=== PATIENT | male | born 1965 | race Caucasian/White ===

== ENCOUNTER 2021-08-09 15:50 | Emergency (ER) | payer BC, SELFPAY ==
[2021-08-09 16:02] VITALS: BP 131/90; PULSE 96; RESP 16; TEMP 36.3; O2SAT 97
--- NOTE | 2021-08-09 16:10 | ED.SKABFB ---
HPI - Skin/Abscess/Foreign Bdy General Chief complaint: Skin/Abscess/Foreign Body Stated complaint: tick bites Time Seen by Provider: 08/09/21 16:10 Source: patient Mode of arrival: ambulatory Limitations: no limitations History of Present Illness HPI narrative: 55 yo M presents with c/o multiple tick bites. Went down to property in [place] and had to do yard work. Was in tall grasses. States some ticks he removed right away and one on back of leg was on him for more than 48 hours. Removed approx. 3 days ago. Now has significant itching and redness. Denies fever/chills, fatigue. Was concerned he may need antibiotic. Ambulatory with steady gait. All systems reviewed and negative except as noted above. Related Data Home Medications Medication Instructions Recorded Confirmed atorvastatin 40 mg tablet 400 mg PO DAILY 08/09/21 08/09/21 paroxetine HCl 20 mg tablet 20 mg PO DAILY 08/09/21 08/09/21 ropinirole 1 mg tablet 1 mg PO DIRECTED 08/09/21 08/09/21 Allergies Allergy/AdvReac Type Severity Reaction Status Date / Time No Known Allergies Allergy Verified 08/09/21 16:09 Review of Systems Review of Systems: CONSTITUTIONAL: Denies fever, chills, or sweats. EYES: Denies visual changes, redness, or discharge. ENT: Denies rhinorrhea, congestion, sore throat, or otalgia. CARDIOVASCULAR: Denies chest pain, palpitations, or edema. RESPIRATORY: Denies cough or dyspnea. GASTROINTESTINAL: Denies abdominal pain, nausea, vomiting, or diarrhea. GENITOURINARY: Denies dysuria or hematuria. SKIN: Denies rash or itching. Tick bite to posterior left leg, 3 tick bites to left groin area. MUSCULOSKELETAL: Denies back pain, joint pain, or myalgia. NEUROLOGIC: Denies headache, numbness, or weakness. PSYCHIATRIC: Denies anxiety or depression. All other systems reviewed are negative, except as documented in HPI. PMFSH Comments At time of signature, agree with nursing past medical, surgical, social and family history. There is no relevant family history pertinent to the presenting complaint. Exam Narrative: GENERAL: This is a well-nourished, well-developed patient, in no apparent distress. HEAD: normocephalic, atraumatic. EYES: PERRL. Sclera clear/white. Vision is grossly intact. EARS: External ears normal NOSE: External nose normal NECK: Neck supple, non-tender without lymphadenopathy, masses or thyromegaly. CARDIOVASCULAR: Regular rate and rhythm without murmurs, gallops, or rubs. RESPIRATORY: Clear to auscultation. Breath sounds equal bilaterally. No wheezes, rales, or rhonchi. SKIN: warm, Dry, intact with no rash, good texture and turgor. 3 erythematous flat lesions to left groin. No concern for infection. Scabbed erythematous lesion to posterior left knee with surrounding erythema, warmth, tenderness. NEURO: awake, alert, and oriented to person, place and time. There were no obvious focal neurologic abnormalities. EXTREMITIES: Normal range of motion to all extremities. Course Course Level of Care: Express Care Visit Vital Signs Vital signs: Vital Signs Temperature 36.3 C L 08/09/21 16:02 Pulse Rate 96 08/09/21 16:02 Respiratory Rate 16 08/09/21 16:02 Blood Pressure 131/90 08/09/21 16:02 Pulse Oximetry 97 08/09/21 16:02 Oxygen Delivery Room Air 08/09/21 16:02 Temperature 36.3 C L 08/09/21 16:02 Pulse Rate 96 08/09/21 16:02 Respiratory Rate 16 08/09/21 16:02 Blood Pressure 131/90 08/09/21 16:02 Pulse Oximetry 97 08/09/21 16:02 Oxygen Delivery Room Air 08/09/21 16:02 Reviewed MDM - Skin/Abscess/Foreign Bdy MDM Narrative Medical decision making narrative: Will prescribe doxycycline for cellulitis to left posterior leg, doxycycline also as preventative for Lyme disease due to multiple tick bites. Patient is aware of diagnosis, understands and agrees to treatment plan. Anticipatory guidance given. Patient agrees to follow-up as directed and is aware of reasons to seek care at the
== END 2021-08-09 16:30 | disposition home or self-care (01) ==
PROVIDERS: Emergency Provider Nurse Practitioner Family
DX: S80.862A Insect bite (nonvenomous), left lower leg, initial encounter (principal); S30.861A Insect bite (nonvenomous) of abdominal wall, initial encounter; W57.XXXA Bitten or stung by nonvenomous insect and other nonvenomous arthropods, initial encounter; L03.116 Cellulitis of left lower limb; E78.00 Pure hypercholesterolemia, unspecified; G25.81 Restless legs syndrome
CPT/HCPCS: 99213; G0463

== ENCOUNTER 2024-02-19 20:34 | Emergency (ER) | payer BC, SELFPAY ==
--- NOTE | ~2024-02-19 | CT_ITS ---
EXAMINATION: CTA chest PE protocol DATE: 02/20/2024 01:17 INDICATION: Chest pain. Elevated d-dimer. TECHNIQUE: Computed tomography (CT) pulmonary angiogram of the chest was performed with 100 mL Omnipa que-350 intravenous contrast. Additional 3D reconstructions utilizing coronal maximum intensity proje ction (MIP) were performed. Automated exposure control and iterative reconstruction technique were em ployed. The dose-length product was 591.30 mGy-cm. COMPARISON: None FINDINGS: No pulmonary embolism. Mild biapical pleural-parenchymal scarring. Mild dependent atelectasis in bila teral lower lobes. No pneumonia, pulmonary edema, pleural effusion or pneumothorax. Heart size is nor mal. No pericardial or pleural effusion. Thoracic aorta is normal in caliber with no dissection. Para pelvic cysts at the upper pole the left kidney. 1.7 cm low-attenuation right adrenal adenoma. Mild th oracic spondylosis. IMPRESSION: 1. Mild dependent atelectasis in bilateral lower lobes. No pulmonary embolism or other acute cardiopu lmonary disease. Reviewed, dictated and finalized at location A. TENANCE REPAIRMAN IMPRESSION: 1. Mild dependent atelectasis in bilateral lower lobes. No pulmonary embolism o r other acute cardiopulmonary disease.
--- NOTE | ~2024-02-19 | XR_ITS ---
EXAMINATION: XR chest 2V DATE: 02/19/2024 20:55 INDICATION: Chest pain. TECHNIQUE: Frontal and lateral views of the chest were obtained. COMPARISON: None. FINDINGS: There is mild scarring at the lung apices. No pleural effusion or pneumothorax. The heart s ize is normal. IMPRESSION: 1. Mild scarring at the lung apices. Reviewed, dictated and finalized at location A. ODY OFFICER
--- NOTE | 2024-02-19 20:36 | ECG_ITS ---
Test Date: 2024-02-19 20:40:16 Measurements Intervals [place] Rate: 84 P: 59 OR: 173 QRS: 28 QRSD: 81 T: -28 QT: 326 QTc: 387 Interpretive Statements SINUS RHYTHM NONSPECIFIC T-WAVE ABNORMALITY No previous ECG available for comparison Electronically Signed On 02-20-2024 08:56:19 DIRECTOR TRADE by Yo Guzman M.D.
[2024-02-19 20:38] VITALS: BP 154/88; PULSE 90; RESP 15; TEMP 36.5; O2SAT 99
[2024-02-19 20:55] LABS: Basophils Percent Auto 0.4 % (0.2-1.2); Eosinophils Percent Auto 0.2 % (0-4.4); Hematocrit 40.1 % (42.0-52.0); Hemoglobin 13.7 g/dL (14.0-18.0); Immature Granulocyte Absolute 0.04 K/mm3 (0.00-0.031); Immature Granulocyte Percent A 0.4 % (0-0.5); Lymphocytes Absolute Auto 2.26 K/mm3 (0.9-3.2); Lymphocytes Percent Auto 21.8 % (18.3-44.2); Mean Corpuscular HGB Conc 34.2 g/dl (32-36); Mean Corpuscular Hemoglobin 31.5 pg (26-34); Mean Corpuscular Volume 92.2 fl (80-100); Mean Platelet Volume 9.4 fl (7.4-10.4); Monocytes Absolute Auto 0.7 K/mm3 (0.1-0.6); Monocytes Percent Auto 6.3 % (2.6-8.5); Neutrophils Absolute Auto 7.4 K/mm3 (1.3-6.7); Neutrophils Percent Auto 70.9 % (45.5-73.1); Platelet Count Result 218 k/mm3 (150-375); Red Blood Count 4.35 M/mm3 (4.6-6.20); White Blood Count 10.4 K/mm3 (4.5-10.0)
[2024-02-19 21:05] LABS: Alanine Aminotransferase 49 U/L (6-50); Albumin Level 4.7 g/dL (3.5-5.1); Alkaline Phosphatase 60 U/L (38-126); Anion Gap 9 mmol/L (4-12); Aspartate Amino Transferase 48 U/L (17-59); Bilirubin,Total 0.8 mg/dL (0.2-1.3); Blood Urea Nitrogen 28 mg/dL (9-20); Calcium 10.2 mg/dL (8.4-10.2); Carbon Dioxide 24 mmol/L (22-30); Chloride 105 mmol/L (98-107); Estimated CRCL calculation 87 ml/min; Estimated Glomerular Filt Rate > 60; Glucose 125 mg/dL (65-110); Lipase 168 U/L (23-300); Potassium 4.1 mmol/L (3.4-5.0); Sodium 138 mmol/L (137-145)
[2024-02-19 21:12] LABS: Prothrombin Time 13.6 Seconds (11.1-14.7)
[2024-02-19 21:13] LABS: Partial Thromboplastin Time 21.9 Seconds (22.3-36.8)
[2024-02-19 21:16] LABS: Troponin I < 0.012 ng/mL (0.000-0.034)
--- NOTE | 2024-02-19 23:06 | ED_ITS ---
HPI - Chest Pain General Chief Complaint: Chest Pain Stated Complaint: chest pain Time Seen by Provider: 02/19/24 22:26 History of Present Illness HPI narrative: 58-year-old otherwise healthy male presenting to the emergency room with chief complaint of left-sided arm pain, left-sided chest pain, left-sided back pain. He states that has been going on for about 1 week and he woke up with the symptoms that are not progressing. Denies any associated difficulty breathing, fever, chills, trauma or injuries. Took some iuyu-tzu-nvsubap medications any significant relief of his symptoms. He noted that today his watch EKG noted that he potentially had some irregular heartbeats. He has no history of atrial fibrillation or flutter and does not take any medications aside from atorvastatin. Does endorse recent travel via plane ride several weeks ago. Denies any recent surgical procedures. No history of DVT or PE. Does not take any blood thinner medications. Symptoms have been stable without any progression and are mild to moderate in nature. No worsening with movement or exercise. Related Data Home Medications ?Medication ?Instructions ?Recorded ?Confirmed ?Last Taken ?Type atorvastatin 40 mg tablet 400 mg PO DAILY 08/09/21 08/09/21 Unknown History paroxetine HCl 20 mg tablet 20 mg PO DAILY 08/09/21 08/09/21 Unknown History ropinirole 1 mg tablet 1 mg PO DIRECTED 08/09/21 08/09/21 Unknown History Allergies Allergy/AdvReac Type Severity Reaction Status Date / Time No Known Allergies Allergy Verified 08/09/21 16:09 Review of Systems 2 Review of Systems: As reviewed above in HPI Exam 2 Narrative: GENERAL: [Well-appearing, well-nourished, and in no acute distress.] HEAD: [Normocephalic, atraumatic.] EYES: [PERRLA and EOMI.] ENT: Nares clear, no rhinorrhea or epistaxis. Mucous membranes moist. NECK: Supple. CHEST: [Clear to auscultation. No respiratory distress.] HEART: [Regular rate and rhythm]. No murmur heard. [Normal peripheral pulses.] 2+ bilateral radial and ulnar pulses with warm extremities. 2+ dorsalis pedis pulses, S1-S2 normal. ABDOMEN: [Soft, nondistended], [nontender], [No rigidity or guarding] EXTREMITIES: Normal range of motion. [No edema.] SKIN: Warm, dry, no rash. NEURO: [No focal deficits]. Alert and oriented [x3.] PSYCH: [Normal mood and affect.] Course Vital Signs Vital signs: Vital Signs Temperature 36.5 C 02/19/24 20:38 Pulse Rate 90 02/19/24 20:38 Respiratory Rate 15 02/19/24 20:38 Blood Pressure 154/88 H 02/19/24 20:38 Pulse Oximetry 99 02/19/24 20:38 Oxygen Delivery Room Air 02/19/24 20:38 Temperature 36.5 C 02/19/24 20:38 Pulse Rate 72 02/20/24 01:44 Respiratory Rate 20 02/20/24 01:44 Blood Pressure 161/95 H 02/20/24 01:44 Pulse Oximetry 97 02/20/24 01:44 Oxygen Delivery Room Air 02/19/24 23:26 MDM - Chest Pain MDM Narrative Medical decision making narrative: This is a 58-year-old otherwise healthy appearing male presenting to the emergency room with chief complaint of chest pain, back pain left-sided arm pain. Symptoms going on for 1 week and nontraumatic in nature. Overall as well appearing not any acute distress and has non reproducible pain with movement and palpation of his extremity and chest. His vital signs are reassuring with some stable high blood pressure 154/88 but no tachycardia, fever, hypoxia or tachypnea. He has strong symmetric pulses throughout both arms and legs without any asymmetry. Warm extremities. No DVT evidence on his examination. Aside from his recent travel history has a very low probability for a thromboembolic event given his low Wells criteria. Given his age and risk factors including hyperlipidemia we did order a cardiac workup including serial troponins, D- dimer, EKG, chest x-ray, CBC, CMP. He was provided Toradol IV push for analgesia and re-evaluated frequently. Workup reveals no significant leukocytosis hemoglobin of 13.7, normal platelets. Coagulation panel started resulting back and he has an elevated D-dimer of 1.04 which is unusual but will need to be pursued further see if he has any thromboembolic events so a PE study was ordered at this time with CT angiography. No electrolyte disturbances, normal renal and hepatic function panel, normal glucose, negative troponin x2. Chest x-ray shows mild scarring in the apices but no acute process. Patient was re-evaluated we went over the imaging results as well as the plan going forward will be to pursue a CT angiography secondary to his elevated dimer. Should that be negative I believe he can be safely discharged given his negative cardiac workup at this time. CT angiography read by stat read shows no acute pulmonary embolism, no focal consolidations pleural effusion or pneumothorax. Lymph nodes within normal limits. No acute findings. Patient had serial troponins which were negative as well serial EKGs which show no changes or interval anomalies. At this time he is stable for discharge home with regular PCP follow-up on outpatient basis. Medical Records Data Attestation: I reviewed the patient's medical records. Lab Data Attestation: I reviewed the patient's lab results. 02/19/24 20:47 02/19/24 20:47 Labs: Lab Results 02/19/24 02/19/24 02/20/24 Range/Units 20:47 23:14 02:55 WBC 10.4 H (4.5-10.0) K/mm3 RBC 4.35 L (4.6-6.20) M/mm3 Hgb 13.7 L (14.0-18.0) g/dL Hct 40.1 L (42.0-52.0) % MCV 92.2 (80-100) fl MCH 31.5 (26-34) pg MCHC 34.2 (32-36) g/dl RDW 12.0 (11.5-14.5) % Plt Count 218 (150-375) k/mm3 MPV 9.4 (7.4-10.4) fl Immature Gran % (Auto) 0.4 (0-0.5) % Neut % (Auto) 70.9 (45.5-73.1) % Lymph % (Auto) 21.8 (18.3-44.2) % Ray % (Auto) 6.3 (2.6-8.5) % Eos % (Auto) 0.2 (0-4.4) % Baso % (Auto) 0.4 (0.2-1.2) % Lymph # (Auto) 2.26 (0.9-3.2) K/mm3 Ray # (Auto) 0.7 H (0.1-0.6) K/mm3 Eos # (Auto) 0.0 (0-0.3) K/mm3 Baso # (Auto) 0.0 (0.0-0.1) K/mm3 Abs Immat Gran (auto) 0.04 H (0.00-0.031) K/mm3 Absolute Neuts (auto) 7.4 H (1.3-6.7) K/mm3 Absolute Nucleated RBC 0.000 (0.0-0.012) K/mm3 Nucleated RBC % 0.0 (0.0-0.2) % PT 13.6 (11.1-14.7) Seconds INR 1.0 APTT 21.9 L (22.3-36.8) Seconds D-Dimer 1.04 H (<0.48) ug/mL Sodium 138 (137-145) mmol/L Potassium 4.1 (3.4-5.0) mmol/L Chloride 105 (98-107) mmol/L Carbon Dioxide 24 (22-30) mmol/L Anion Gap 9 (4-12) mmol/L BUN 28 H (9-20) mg/dL Creatinine 1.10 (0.7-1.3) mg/dL Estim Creat Clear Calc 87 ml/min Estimated GFR > 60 (59 - ) Glucose 125 H (65-110) mg/dL Calcium 10.2 (8.4-10.2) mg/dL Total Bilirubin 0.8 (0.2-1.3) mg/dL AST 48 (17-59) U/L ALT 49 (6-50) U/L Alkaline Phosphatase 60 (38-126) U/L Troponin I < 0.012 < 0.012 < 0.012 (0.000-0.034) ng/mL Total Protein 8.0 (6.3-8.2) g/dL Albumin 4.7 (3.5-5.1) g/dL Lipase 168 (23-300) U/L Imaging Data Attestation: I personally reviewed and interpreted this imaging study as follows: My impression: No acute pneumonia, consolidation or pneumothorax, no identifiable large PE. Radiologist's impression: Radiology confirms no PE or acute process ECG Data EKG #1: Attestation: I personally reviewed and interpreted this ECG as follows: ECG completion date: 02/20/24 ECG completion time: 20:40 Prior ECG tracings: not available for review Interpretation: No ST segment elevations, depressions or inversions. Normal sinus rhythm, no ectopy. No significant interval change between EKGs while here in the emergency department. Overall normal sinus rhythm. Discharge Plan Discharge Clinical Impression: Atypical chest pain, Chest pain, musculoskeletal Patient Disposition: Home, Self-Care Condition: Stable Instructions: Antibiotic Form, Chest Pain (ED), Costochondritis (ED), Chest Wall Pain (ED) Additional Instructions: Your cardiac workup was very reassuring. No ongoing cardiac damage and there are no blood clots on your angiography study. No signs of arrhythmia or irregular heartbeat. Overall very benign etiology is suspected behind your pain and likely secondary to musculoskeletal strain or potentially a pinched nerve in the area. Please follow-up with your regular primary care provider on outpatient basis and if you have any worsening or new pain you can always get repeat evaluation at that time. Recommendations for shud-wne-bttuvnu Tylenol, ibuprofen and even topical therapies like lidocaine patches. Patient Language: Citizen Of [place] Prescriptions: No Action atorvastatin 40 mg tablet 400 mg PO DAILY ropinirole 1 mg tablet 1 mg PO DIRECTED Rx Instructions: 1 IN AM AND 2 AT HS paroxetine HCl 20 mg tablet 20 mg PO DAILY doxycycline hyclate 100 mg capsule 100 mg PO BID 7 Days Qty: 14 0RF Follow-up/Referrals: Linda,Edgar Morrow MD [Primary Care Provider] - Time of Disposition: 03:31 Quality HEART score for chest pain patients History: slightly suspicious ECG: normal Age: > 45 and < 65 years Risk factors: 1 or 2 risk factors Troponin: < or = to 1x normal limit Heart score: 2
--- NOTE | 2024-02-19 23:06 | ECG_ITS ---
Test Date: 2024-02-19 23:17:01 Measurements Intervals [place] Rate: 84 P: 74 [place]: 178 QRS: 58 QRSD: 94 T: 48 QT: 360 QTc: 426 Interpretive Statements SINUS RHYTHM WITH FREQUENT SUPRAVENTRICULAR PREMATURE COMPLEXES ABNORMAL RHYTHM ECG Compared to ECG 02/19/2024 20:40:16 T-wave abnormality no longer present Electronically Signed On 02-20-2024 11:00:23 SAP PAYROLL CONSULTANT by Yo Guzman M.D.
[2024-02-19 23:19] LABS: D Dimer 1.04 ug/mL (<0.48)
--- NOTE | 2024-02-19 23:23 | PC.NURSE ---
Blue top drawn, order not crossed over to mobi lab so sample sent to lab with demo label
[2024-02-19 23:26] VITALS: O2SAT 98
[2024-02-19] MEDS: KETOROLAC 30 MG/ML VIAL (*BKC) IV PUSH (23:33)
[2024-02-19 23:49] VITALS: BP 141/93; PULSE 88; RESP 16; O2SAT 95
[2024-02-19 23:51] LABS: Troponin I < 0.012 ng/mL (0.000-0.034)
[2024-02-20 01:44] VITALS: BP 161/95; PULSE 72; RESP 20; O2SAT 97
--- NOTE | 2024-02-20 02:49 | ECG_ITS ---
Test Date: 2024-02-20 03:00:34 Measurements Intervals [place] Rate: 69 P: 47 [place]: 166 QRS: 30 QRSD: 93 T: 27 QT: 366 QTc: 393 Interpretive Statements SINUS RHYTHM Compared to ECG 02/19/2024 23:17:01 No significant changes Electronically Signed On 02-20-2024 13:02:00 LINE FISHER by Yo Guzman M.D.
[2024-02-20 03:26] LABS: Troponin I < 0.012 ng/mL (0.000-0.034)
[2024-02-20 03:41] VITALS: BP 163/87; PULSE 84; RESP 18; O2SAT 98
--- OUTSIDE RECORDS SUMMARY | 2024-02-23 15:01 | XMS_ITS | Clinical Summary ---
Author Organization [facility] Address [address] [place] [address]. [place], [place] [id number] [place] [id number] Care Team Providers Care Bull Ladle Tender Name Role Phone Edgar Mckeon MD Primary Care Provider [phone] Social History Tobacco Use Types Packs/Day Years Used Date Smoking Tobacco: Never Assessed Sex and Gender Information Value Date Recorded Sex Assigned at Not on file Legal Sex Male 8:11 PM CDT Gender Identity Not on file Sexual Orientation Not on file Plan of Treatment Health Maintenance Due Date Last Done Comments Colorectal Cancer Screening Colonoscopy (10 Years) 1964 Annual Physical 11/20/1967 Hepatitis C 1982 DTaP, Tdap and Td Vaccines ( 1 - Tdap) 11/20/1983 Zoster Vaccines (1 of 2) 2014 COVID-19 Vaccine ( - 2023-2 5 season) 2023 Influenza Adult (#1) 2023 Meningococcal Vaccine Aged Out No augusto martín eligible based on patient's age to complete this topic Pneumococcal Vaccine: Pediat rics (0 to 5 Years) and At-Risk Patients (6 to 64 Years) Aged Out No longer eligible b ased on patient's age to complete this topic RSV Immunizations Under 20 Months Aged Out No longer eligible based on patient's age to complete this topic Insurance [facility] Care Teams Bull Ladle Tender Relationship Specialty Start Date End Date Edgar Mckeon MD [address] [facility] [address] [place] [id number] PCP - General FAMILY PRACTICE 05/25/23
--- OUTSIDE RECORDS SUMMARY | 2024-02-23 15:02 | XMS_ITS | Encounter Summary ---
Author Organization [facility] Address [address] [place] [address]. [place], [place] [id number] [place] [id number] Care Team Providers Care Social Welfare Administrator Name Role Phone Unavailable Primary Care Provider Unavailabl e Encounter Details Date Type Department Care Team (Late st Contact Info) Description 10/18/2012 Abstract [facility] [place] [address] Herman Raymundo MD [address] [place] [address] [place] [id number] Social History Tobacco Use Types Packs/Day Years Used Date Smoking Tobacco: Never Assessed Sex and Gender Information Value Date Recorded Sex Assigned at Not on file Legal Sex Male 8:11 PM CDT Gender Identity Not on file Sexual Orientation Not on file documented as of this encounter Plan of Treatment Not on file documented as of this encounter Visit Diagnoses Diagnosis Deviated nasal septum documented in this encounter
--- OUTSIDE RECORDS SUMMARY | 2024-02-23 15:02 | XMS_ITS | Encounter Summary ---
Author Organization [facility] Address [address] [place] [address]. [place], [place] [id number] [place] [address] Care Team Providers Care Loan Interviewer Name Role Phone Edgar Mckeon MD Primary Care Provider [phone] Encounter Details Date Type Department Care Team (Latest Contact Info) Description 06/30/2023 Travel Social History Tobacco Use Types Packs/Day Years Used Date Smoking Tobacco: Never Assessed Sex and Gender Information Value Date Recorded Sex Assigned at Not on file Legal Sex Male 8:11 PM CDT Gender Identity Not on file Sexual Orientation Not on file documented as of this encounter Plan of Treatment Not on file documented as of this encounter Visit Diagnoses Not on filedocumented in this encounter Care Teams Loan Interviewer Relationship Specialty Start Date End Date Edgar Mckeon MD [address] [facility] [address] [address] PCP - General FAMILY PRACTICE 05/25/23 documented as of this encounter
--- OUTSIDE RECORDS SUMMARY | 2024-02-23 15:02 | XMS_ITS | Encounter Summary ---
Author Organization [facility] Address [address] [place] [address]. [place], [place] [address] [place] [address] Care Team Providers Care Seafood Preparer Name Role Phone Danielle Mckeon MD Primary Care Provider [phone] Reason for Referral * Imaging (Routine) - Closed Specialty Diagnoses / Procedures Referred By Contac t Referred To Contact RADIOLOGY Diagnoses Screening for heart disease Procedures CT HEART DIAG CALCIUM SCORE Danielle Mckeon MD [address] [facility] [address] [place] [address] Phone: tel: fax: Referral ID Status Reason Start Date Expiration Date Visits Re quested Visits Authorized [id number] Closed 05/25/2023 05/25/2024 1 1 Reason for Visit * Imaging (Routine) - Closed Specialty Diagnoses / Procedures Referred By Contac t Referred To Contact RADIOLOGY Diagnoses Screening for heart disease Procedures CT HEART DIAG CALCIUM SCORE Danielle Mckeon MD [address] [facility] [address] [place] [address] Phone: tel: fax: Referral ID Status Reason Start Date Expiration Date Visits Re quested Visits Authorized [id number] Closed 05/25/2023 05/25/2024 1 1 Encounter Details Date Type Department Care Team (Latest Contact Info) Description 06/30/2023 7:28 AM CDT - 06/30/2023 11:59 PM CDT Hospital Encounter [facility] [place] [address] Danielle Mckeon MD [address] [place], [place] [phone] Discharge Disposition: Home or Self Care (Routine Discharge) Social History Tobacco Use Types Packs/Day Years Used Date Smoking Tobacco: Never Assessed Sex and Gender Information Value Date Recorded Sex Assigned at Not on file Legal Sex Male 8:11 PM CDT Gender Identity Not on file Sexual Orientation Not on file documented as of this encounter Plan of Treatment Not on file documented as of this encounter Procedures Procedure Name Priority Date/Time Associated Diagnosis Comments CT HEART DIAG CALCIUM SCORE Routine 06/30/2023 7:42 AM CDT Screening for heart disease documented in this encounter Results * CT HEART DIAG CALCIUM SCORE (06/30/2023 7:42 AM CDT) Anatomical Region Laterality Modality Computed Tomogra phy 06/30/2023 1:39 PM CDT Impressions 06/30/2023 1:40 PM CDT =====IMPRESSION:===== Total Score: 123 Moderate plaque, moderately high risk, moderate likelihood of significant stenosis (>50%). Ordered By: DANIELLE MCKEON Interpreted By: Calvin Carvajal MD, 06/30/2023 1:39 PM Narrative 06/30/2023 1:40 PM CDT EXAMINATION: Multislice Helical CT Coronary Calcium Scoring REASON FOR EXAM: Screening for heart disease COMPARISON: None TECHNIQUE: ??Multislice helical CT images of the proximal coronary arteries with a computer generated calcification score. A dose lowering technique was used for this procedure, which may include, but is not limited to, dose reduction technique, automated exposure control, iterative reconstruction, ALARA (As Low As Reasonably Achievable), or Image Gently techniques. Results: Left main: 0 ?LAD: 117 Circumflex: 5.4 ? Right coronary: 0 ?? Total Score: 123 ? Comments: There is no mediastinal adenopathy, and there are no pulmonary nodules in the visualized portions of the chest. Calcium score guidelines: Total Score* Calcium Plaque [place] ??*Risk ?*Probability of significant CAD 0 ?No Plaque ?Very Low ? Very unlikely 1-10 ?Minimal Plaque ? Low ?Unlikely 11-100 ?Mild Plaque ?Moderate ? Low likelihood of significant ? stenosis <50% ? 101-400 ? Moderate Plaque ?Moderately High ?Moderate likelihood of ? significant stenosis (>50%) Over 400 ?Extensive Plaque ? High ?High likelihood of ?significant stenosis (>50%) The amount of coronary artery calcification correlates with the severity of coronary atherosclerosis and the probability of future significant event. Calcification is not site specific for stenosis and does not identify non-calcified atherosclerotic plaque, but rather indicates the extent of atherosclerosis in the coronary arteries overall. The score may be used as an indicator for risk factor modification or additional cardiac testing. Significant change in calcium score over time may be indicative of subsequent disease development or useful as a benchmark to assess preventative programs. Procedure Note Clavin Carvajal MD - 06/30/2023 EXAMINATION: Multislice Helical CT Coronary Calcium Scoring REASON FOR EXAM: Screening for heart disease COMPARISON: None TECHNIQUE: Multislice helical CT images of the proximal coronary arterieswith a computer generated calcification score. A dose lowering techniquewas used for this procedure, which may include, but is not limited to,dose reduction technique, automated exposure control, iterativereconstruction, ALARA (As Low As Reasonably Achievable), or Image Gentlytechniques. Results: Left main: 0 LAD: 117 Circumflex: 5.4 Right coronary: 0 Total Score: 123 Comments: There is no mediastinal adenopathy, and there are no pulmonarynodules in the visualized portions of the chest. Calcium score guidelines: Total Score* Calcium Plaque [place] *Risk *Probability ofsignificant CAD 0 No Plaque Very LowVery unlikely 1-10 Minimal Plaque LowUnlikely 11-100 Mild Plaque ModerateLow likelihood of significant stenosis <50% 101-400 Moderate Plaque Moderately HighModerate likelihood of significant stenosis (>50%) Over 400 Extensive Plaque HighHigh likelihood of significant stenosis (>50%) The amount of coronary artery calcification correlates with the severityof coronary atherosclerosis and the probability of future significantevent. Calcification is not site specific for stenosis and does not identify non- calcifiedatherosclerotic plaque, but rather indicates the extent of atherosclerosisin the coronary arteries overall. The score may be used as an indicator for risk factor modification oradditional cardiac testing. Significant change in calcium score over timemay be indicative of subsequent disease development or useful as a benchmark to assess preventativeprograms. =====IMPRESSION:===== Total Score: 123 Moderate plaque, moderately high risk, moderatelikelihood of significant stenosis (>50%). Ordered By: DANIELLE MCKEON Interpreted By: Calvin Carvajal MD, 06/30/2023 1:39 PM Danielle Mckeon MD CT Final Result documented in this encounter Visit Diagnoses Diagnosis Screening for heart disease Screening for other and unspecified cardiovascular conditions documented in this encounter Care Teams Seafood Preparer Relationship Specialty Start Date End Date Danielle Mckeon MD [address] [facility] [address] [place] [address] PCP - General FAMILY PRACTICE 05/25/23 documented as of this encounter
--- OUTSIDE RECORDS SUMMARY | 2024-02-23 15:04 | XMS_ITS | Encounter Summary ---
Author Organization [facility] Address [address] [place] [address] Care Team Providers Care Molding Cutter Name Role Phone Edgar Mckeon MD Primary Care Provider [phone] Reason for Visit * Reason Onset Date Comments Medical Question/Miscellaneous 12/28/2023 Encounter Details Date Type Department Care Team (Late st Contact Info) Description 12/28/2023 Telephone [facility] Family Medicine at [address] [place] [address] Edgar Mckeon MD [address] [place] [address] [address] Medical Question/Miscellaneous Social History Tobacco Use Types Packs/Day Years Used Date Smoking Tobacco: Never Smokeless Tobacco: Never Alcohol Use Standard Drinks/Week Comments Yes 0 (1 standard drink = 0.6 oz pure alcohol) drinks a couple times a week, wine or beer AUDIT-C Answer Date Recorded Q1: How often do you have a drink containing alc ohol? 2-3 times a week 01/15/2021 Q2: How many drinks containi ng alcohol do you have on a typical day when you are drinking? 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 I informed him that the next time that he comes in for an appointment and Dr. Mckeon or any other provider orders labs that he needs to get a copy of his request. * Telephone Encounter - Fernanda Chua RN - 12/28/2023 4:47 PM CDT Attempted to speak to patient and inform him the lab orders are already in his chart. He should be able to see the orders in his mychart. He said he cannot and that I just need to put them there. I explained on my end the orders are in his chart. I told him that he may need to reach out to mychart to see why he cannot see them when last time he could. He began raising his voice and saying I have to? I have have to? You should have to. I explained that they will not speak to me about his personal mychart. He said then email them to me. I explained that I cannot email but can fax, mail copy or he can picker a copy. He again said No you just need to place them in mychart I again told him that they are in his chart and I cannot explain why he cannot see them and that I will have my boss r each out to him. * Telephone Encounter - UlyssesYuly dominguez - 12/28/2023 1:55 PM CDT Medical Question/Miscellaneous Caller???s Concern: patient would a copy of the lab orders that were sent to [facility] be put into his my chart so he has a copy as he has had trouble in the past being told they do not have the order Does message need to be routed? Yes-Action Needed documented in this encounter Plan of Treatment Not on file documented as of this encounter Visit Diagnoses Not on filedocumented in this encounter Care Teams Molding Cutter Relationship Specialty Start Date End Date Edgar Mckeon MD PCP - General 05/04/17 documented as of this encounter
--- OUTSIDE RECORDS SUMMARY | 2024-02-23 15:04 | XMS_ITS | Encounter Summary ---
Author Organization [facility] Address [address] [place] [address] Care Team Providers Care Demurrage Man Name Role Phone Edgar Mckeon MD Primary Care Provider [phone] Reason for Referral * Consultation (Routine) - Closed Specialty Diagnoses / Procedures Referred By Contac t Referred To Contact Pain Management Diagnoses Lumbar radicular pain Edgar Mckeon MD [facility] [address] [place] [address] Phone: tel: fax: Cachorro Mcdonald MD [address] [place] [address] [address] [place] [address] Phone: tel: fax: Referral ID Status Reason Start Date Expiration Date V isits Requested Visits Authorized [id number] Closed Specialty Services Required 01/18/2024 02/16/2025 1 1 Question Answer Please select the performing region: [facility] [[id number]] To provider: HELENE MCDONALD [[id number]] # of visits: 1 ERSAL BANKER Encounter Details Date Type Department Care Team (Late st Contact Info) Description 01/18/[address] 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 Gender Identity Not on file Sexual Orientation Not on file documented as of this encounter Plan of Treatment Scheduled Referrals Name Type Priority Associated Diagnoses Order Schedule Ambulatory referral to Pain Management Outpatient Referral Routine Lumbar radicular pain Expected: 02/01/2024 (Approximate), Expires: 01/17/2025 documented as of this encounter Visit Diagnoses Diagnosis Lumbar radicular pain- Primary Thoracic or lumbosacral neuritis or radiculitis, unspecified documented in this encounter Care Teams Demurrage Man Relationship Specialty Start Date End Date Edgar Mckeon MD PCP - General 05/04/17 documented as of this encounter
--- OUTSIDE RECORDS SUMMARY | 2024-02-23 15:04 | XMS_ITS | Encounter Summary ---
Author Organization [facility] Healthcare Address [address] [place] [address] Care Team Providers Care General Adjuster Name Role Phone Edgar Mckeon MD Primary Care Provider [phone] Encounter Details Date Type Department Care Team (Late st Contact Info) Description 02/17/2024 Orders Only [facility] Health Information Management [address] [place] [address] Edgar Mckeon MD [address] [facility] [address] [address] Social History Tobacco Use Types Packs/Day Years [...] on file Legal Sex Male 8:16 AM ENROLLER Gender Identity Not on file Sexual Orientation Not on file documented as of this encounter Plan of Treatment Not on file documented as of this encounter Procedures Procedure Name Priority Date/Time Associated Diagnosis Comments SCAN - NEUROLOGY 02/17/2024 documented in this encounter Results * SCAN - NEUROLOGY (02/17/2024) Anatomical Region Laterality Modality Other us Edgar Mckeon MD Final Result documented in this encounter Visit Diagnoses Not on filedocumented in this encounter Care Teams General Adjuster Relationship Specialty Start Date End Date Edgar Mckeon MD PCP - General 05/04/17 documented as of this encounter
--- OUTSIDE RECORDS SUMMARY | 2024-02-23 15:04 | XMS_ITS | Encounter Summary ---
Author Organization [facility] Address [address] [place] [address] Care Team Providers Care Family Services Coordinator Name Role Phone Edgar Mckeon MD Primary Care Provider [phone] Reason for Visit * Reason Comments Annual Exam Encounter Details Date Type Department Care Team (Late st Contact Info) Description 06/01/2023 3:15 PM CDT Office Visit 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 Gender Identity Not on file Sexual Orientation Not on file documented as of this encounter Last Filed Vital Signs Vital Sign Reading Time Taken Comments Blood Pressure 134/88 06/01/2023 3:47 PM CDT Pulse 91 06/01/2023 3:47 PM CDT Temperature 36.7 ??C (98.1 ??F) 06/01/2023 3:47 PM CD T Respiratory Rate - - Oxygen Saturation 97% 06/01/2023 3:47 PM CDT Inhaled Oxygen Concentration - - Weight 110.7 kg (244 lb) 06/01/2023 3:47 PM CDT Height 203.2 cm (6' 8 ) 06/01/2023 3:47 PM CDT Body Mass Index 26.8 06/01/2023 3:47 PM CDT documented in this encounter Ordered Prescriptions Prescription Sig Dispense Quantity Refills Last Filled Start Date End Date baclofen (LIORESAL) 10 mg tablet Take 1 tablet (10 mg total) by mouth daily as needed for muscle spasms 90 tablet 3 06/01/2023 PARoxetine (PAXIL) 40 mg tablet Take 1 tablet (40 mg total) by mouth every morning 90 tablet 3 06/01/2023 rOPINIRole (REQUIP) 1 mg tabletIndications: Restless leg syndrome Take 1 tablet (1 mg total) by mouth 3 (three) times a day 270 tablet 3 06/01/2023 atorvastatin (LIPITOR) 40 mg tablet Take 1 tablet (40 mg total) by mouth daily 90 tablet 3 06/01/2023 documented in this encounter Progress Notes * Edgar Mckeon MD - 06/01/2023 3:15 PM CDT Images from the original note were not included. Subjective/Objective Patient ID: Héctor Pérez is a 57 y.o. male. Chief Complaint Annual Exam HPI Allergies as of 06/01/2023 - Reviewed 06/01/2023 Allergen Reaction Noted Bee sting [venom-honey bee] Hives 08/31/2020 Past Medical History: Diagnosis Date Bulging lumbar disc Restless leg syndrome TIA (transient ischemic attack) Past Surgical History: Procedure Laterality Date EPIDURAL INJECTION LUMBOSACRAL N/A 12/25/2015 NASAL SEPTUM SURGERY 2013 SPINE SURGERY 2015 lapendectomy Family History Problem Relation Age of Onset No Known Problems Mother Heart disease Father Skin cancer Father No Known Problems Sister No Known Problems Brother No Known Problems Maternal Grandmother No Known Problems Maternal Grandfather No Known Problems Paternal Grandmother No Known Problems Paternal Grandfather Social History Tobacco Use Smoking status: Never Smokeless tobacco: Never Substance and Sexual Activity Drug use: Yes Types: Tramadol Sexual activity: None Alcohol Use: Unknown (01/15/2021) AUDIT-C Frequency of Alcohol Consumption: 2-3 times a week Average Number of Drinks: 1 or 2 Frequency of Binge Drinking: Not on file Review of Systems Constitutional: Positive for fatigue. Negative for fever. Respiratory: Negative for cough and shortness of breath. Cardiovascular: Negative for chest pain and leg swelling. Gastrointestinal: Negative for abdominal pain and nausea. Musculoskeletal: Positive for back pain. Negative for neck pain. Neurological: Negative for seizures and headaches. Psychiatric/Behavioral: Negative for confusion. The patient is not nervous/anxious. Vitals: 06/01/23 1547 BP: 134/88 BP Location: Right arm Patient Position: Sitting Pulse: 91 Temp: 36.7 ??C (98.1 ??F) TempSrc: Temporal SpO2: 97% Weight: 110.7 kg (244 lb) Height: 203.2 cm (6' 8 ) Physical Exam Constitutional: Appearance: He is well-developed. Cardiovascular: Rate and Rhythm: Normal rate and regular rhythm. Heart sounds: Normal heart sounds. Pulmonary: Effort: Pulmonary effort is normal. Breath sounds: Normal breath sounds. Abdominal: General: Bowel sounds are normal. Palpations: Abdomen is soft. Skin: General: Skin is warm and dry. Neurological: Mental Status: He is alert and oriented to person, place, and time. Psychiatric: Speech: Speech normal. PHQ Screening Assessment/Plan Assessment and Plan Diagnoses and all orders for this visit: Annual physical exam (Primary) - 57-year-old male. He is doing pretty good. Weight stable. Labs reviewed. Was off statin for little while. Repeat labs 3 months with a PSA. Colonoscopy scheduled. Habits are negative. Mood/ Insomnia. Gradually worsening OTC Melatonin We discussed CT calcium score / it is scheduled Restless leg syndrome - stable, on meds RODO - stable, on meds Colon cancer screening - sees Dr Miller Orders Placed This Encounter Comprehensive metabolic panel Standing Status: Future Number of Occurrences: 1 Standing Expiration Date: 05/31/2024 Lipid panel Standing Status: Future Number of Occurrences: 1 Standing Expiration Date: 05/31/2024 Order Specific Question: Has the patient been fasting for 8 hours or more? Answer: Yes PSA screen Standing Status: Future Number of Occurrences: 1 Standing Expiration Date: 05/31/2024 atorvastatin (LIPITOR) 40 mg tablet Sig: Take 1 tablet (40 mg total) by mouth daily Dispense: 90 tablet Refill: 3 rOPINIRole (REQUIP) 1 mg tablet Sig: Take 1 tablet (1 mg total) by mouth 3 (three) times a day Dispense: 270 tablet Refill: 3 PARoxetine (PAXIL) 40 mg tablet Sig: Take 1 tablet (40 mg total) by mouth every morning Dispense: 90 tablet Refill: 3 baclofen (LIORESAL) 10 mg tablet Sig: Take 1 tablet (10 mg total) by mouth daily as needed for muscle spasms Dispense: 90 tablet Refill: 3 Specific topics reviewed: drugs, ETOH, and tobacco, importance of regular dental care, importance of regular exercise, importance of varied diet, minimize junk food, and seat belts. Return in about 1 year (around 05/31/2024). Edgar Mckeon MD documented in this encounter Plan of Treatment Scheduled Orders Name Type Priority Associated Diagnoses Orde r Schedule Comprehensive metabolic panel Lab Routine Mixed hyperlipidemia Expected: 09/01/2023, Expires: 05/31/2024 Lipid panel Lab Routine Mixed hyperlipidemia Expected: 09/01/2023, Expires: 05/31/2024 PSA screen Lab Routine Screening for prostate cancer Expected: 09/01/2023, Expires: 05/31/2024 documented as of this encounter Visit Diagnoses Diagnosis Annual physical exam- Primary Routine general medical examination at a health care facility Restless leg syndrome Restless legs syndrome (RLS) Colon cancer screening Special screening for malignant neoplasms, colon Mixed hyperlipidemia Screening for prostate cancer Special screening for malignant neoplasm of prostate documented in this encounter Discontinued Medications Medication Sig Discontinue Reason Start Date End Da te clonazePAM (KlonoPIN) 0.5 mg tabletIndications:Restle ss leg syndrome Take 1 tablet (0.5 mg total) by mouth nightly Therapy completed 10/16/2021 06/01/2023 Lactobacillus acidophilus 10 billion cell capsule Take by mouth once Therapy completed 06/01/2023 traMADoL (ULTRAM) 50 mg tablet as needed Therapy completed 06/01/2023 baclofen (LIORESAL) 10 mg tablet Take 1 tablet (10 mg total) by mouth daily as needed for muscle spasms Reorder 12/06/2019 06/01/2023 PARoxetine (PAXIL) 40 mg tablet TAKE 1 TABLET(40 MG) BY MOUTH EVERY MORNING Reorder 12/02/2022 06/01/2023 rOPINIRole (REQUIP) 1 mg tabletIndications:Restle ss leg syndrome Take 1 tablet (1 mg total) by mouth 3 (three) times a day Reorder 12/31/2022 06/01/2023 atorvastatin (LIPITOR) 40 mg tablet Take 1 tablet (40 mg total) by mouth daily Reorder 05/04/2023 06/01/2023 documented as of this encounter Historical Medications * This list may reflect changes made after this encounter. turmeric root extract 500 mg capsule Take by mouth magnesium oxide 400 mg magnesium capsule Take by mouth added in this encounter Care Teams Family Services Coordinator Relationship Specialty Start Date End Date Edgar Mckeon MD PCP - General 05/04/17 documented as of this encounter
--- OUTSIDE RECORDS SUMMARY | 2024-02-23 15:04 | XMS_ITS | Encounter Summary ---
Author Organization [facility] Healthcare Address [address] [place] [address] Care Team Providers Care Fish Hatchery Assistant Name Role Phone Edgar Mckeon MD Primary Care Provider [phone] Reason for Referral * MRI/CAT/PET Scan (Routine) - Closed Specialty Diagnoses / Procedures Referred By Contac t Referred To Contact Radiology Diagnoses Lumbar radicular pain Chronic bilateral low back pain with bilateral sciatica History of lumbar laminectomy Procedures MRI Lumbar Spine WO Contrast Edgar Mckeon MD [address] [place] [address] DR LANDON [address] [place] [address] Phone: tel: fax: [address] [address] Referral ID Status Reason Start Date Expiration Date Visits Re quested Visits Authorized [id number] Closed 12/29/2023 02/26/2024 1 1 Reason for Visit * Reason Comments Numbness Legs and feet Leg Pain Encounter Details Date Type Department Care Team (Late st Contact Info) Description 12/18/2023 9:15 AM CDT Telemedicine [facility] Family Medicine at [address] [place] [address] Edgar Mckeon MD [address] [place] [address] DR LANDON [address] [place] [id number] Lumbar radicular pain (Primary Dx); Chronic bilateral low back pain with bilateral sciatica; History of lumbar laminectomy; Mixed hyperlipidemia; Prostate cancer screening Social History Tobacco Use Types Packs/Day Years [...] on file Legal Sex Male 8:16 AM [employer] Gender Identity Not on file Sexual Orientation Not on file documented as of this encounter Last Filed Vital Signs Vital Sign Reading Time Taken Comments Blood Pressure - - Pulse - - Temperature - - Respiratory Rate - - Oxygen Saturation - - Inhaled Oxygen Concentration - - Weight 106.6 kg (235 lb) 12/18/2023 8:51 AM CDT Height 203.2 cm (6' 8 ) 12/18/2023 8:51 AM CDT Body Mass Index 25.82 12/18/2023 8:51 AM CDT documented in this encounter Progress Notes * Edagr Mckeon MD - 12/18/2023 9:15 AM CDT Images from the original note were not included. Subjective/Objective Patient ID: Héctor Pérez is a 58 y.o. male. This was a telemedicine visit with Héctor Pérez alone which took place via real-time video connection. During the visit, I was located at home and the patient was located at home in the state [facility]. The patient visit started at 9:22 and ended at 9:34. I have explained the option of participating in a telemedicine visit to the patient. After being given an opportunity to ask questions about and discuss this type of visit, the patient verbally consented to proceeding with the telemedicine visit. The patient understands that this service replaces an office visit and they may be billed and/or responsible for any applicable copayments. The patient has been informed that the visit may not be secure and acknowledged the information. I have explained the option of participating in a telephone or video visit during the COVID-19 [facility] emergency to the patient. After being given an opportunity to ask questions about and discuss this type of visit, the patient verbally consented to proceeding with the telephone/video visit.The patient understands that this service replaces an office visit and they may be billed and/or responsible for any applicable copayments. Chief Complaint Numbness (Legs and feet) and Leg Pain 58-year-old male. He has got chronic low back pain. With some bilateral lower extremity numbness tingling and pain. Positive history. He has had MRI in the past. He has seen Neurosurgery before. He has had laminectomy. And he has completed physical therapy. Symptoms have normally come and go but seem to be gradually worsening and concerned about the neuropathic changes of the lower extremities. Bowels and bladder otherwise normal Neuropathy Leg Pain Associated symptoms include numbness. Back Pain Associated symptoms include leg pain and numbness. Pertinent negatives include no abdominal pain, chest pain, fever or headaches. Current Outpatient Medications Medication Sig Dispense Refill arginine HCl, L-arginine, 1,000 mg tablet Take 1,000 mg by mouth daily ascorbic acid (vitamin C) 1,000 mg tablet Take 1 tablet (1,000 mg total) by mouth daily aspirin 81 mg enteric coated tablet Take 1 tablet (81 mg total) by mouth daily atorvastatin (LIPITOR) 40 mg tablet Take 1 tablet (40 mg total) by mouth daily 90 tablet 3 baclofen (LIORESAL) 10 mg tablet Take 1 tablet (10 mg total) by mouth daily as needed for muscle spasms 90 tablet 3 EPINEPHrine 0.3 mg/0.3 mL auto-injection syringe Inject 0.3 mL (0.3 mg total) into the muscle as instructed as needed for anaphylaxis Call 911 after use. 2 each 1 ergocalciferol, vitamin D2, 50 mcg (2,000 unit) tablet 2,000 Units magnesium oxide 400 mg magnesium capsule Take by mouth NON FORMULARY, FOR CLINIC ADMINISTERED MEDICATIONS ONLY, (not in database) 80 each once pycnogenol PARoxetine (PAXIL) 40 mg tablet Take 1 tablet (40 mg total) by mouth every morning 90 tablet 3 rOPINIRole (REQUIP) 1 mg tablet Take 1 tablet (1 mg total) by mouth 3 (three) times a day 270 tablet 3 turmeric root extract 500 mg capsule Take by mouth zinc-vit C-pyridoxine, vit B6, 12-60-0.5 mg lozenge 50 mg No current facility-administered medications for this visit. Review of Systems Constitutional: Negative for fatigue and fever. Respiratory: Negative for cough and shortness of breath. Cardiovascular: Negative for chest pain and leg swelling. Gastrointestinal: Negative for abdominal pain and nausea. Musculoskeletal: Positive for arthralgias and back pain. Negative for neck pain. Neurological: Positive for numbness. Negative for seizures and headaches. Psychiatric/Behavioral: Negative for confusion. The patient is not nervous/anxious. Vitals Ht 203.2 cm (6' 8 ) Wt 106.6 kg (235 lb) BMI 25.82 kg/m?? Physical Exam Awake alert O times 3 Assessment/Plan Diagnoses and all orders for this visit: Lumbar radicular pain (M54.16) (Primary) - see below Chronic bilateral low back pain with bilateral sciatica (M54.42, M54.41, G89.29) - see below History of lumbar laminectomy (Z98.890) - see below 58-year-old male. He has completed x-rays and PT in the past. He has had MRIs in the past. He has seen neurosurgery in the past. He has had laminectomy. Low back pain gradually worsening. With bilateral lower extremity neuropathic symptoms. Will order MRI. Consider pain management versus neurosurgery after MRI Is due for routine labs including chemistry panel lipid profile and a PSA. Which have been ordered Orders Placed This Encounter MRI Lumbar Spine WO Contrast Standing Status: Future Standing Expiration Date: 12/17/2024 Order Specific Question: Is patient claustrophobic? Answer: No Order Specific Question: Is patient able to lie flat for at least one hour? Answer: Yes Order Specific Question: Where should this Exam be performed? Answer: [facility] [[id number]] Order Specific Question: Does the patient have a cardiovascular implantable electronic device, pacemaker, or implantable cardioverter-defibrillator? Answer: No Comprehensive metabolic panel Standing Status: Future Number of Occurrences: 1 Standing Expiration Date: 12/17/2024 Lipid panel Standing Status: Future Number of Occurrences: 1 Standing Expiration Date: 12/17/2024 PSA screen Standing Status: Future Number of Occurrences: 1 Standing Expiration Date: 12/17/2024 Return if symptoms worsen or fail to improve, for Next scheduled follow up. documented in this encounter Plan of Treatment Scheduled Orders Name Type Priority Associated Diagnoses Orde r Schedule Comprehensive metabolic panel Lab Routine Mixed hyperlipidemia Expected: 12/18/2023, Expires: 12/17/2024 Lipid panel Lab Routine Mixed hyperlipidemia Expected: 12/18/2023, Expires: 12/17/2024 PSA screen Lab Routine Prostate cancer screening Expected: 12/18/2023, Expires: 12/17/2024 documented as of this encounter Results * MRI Lumbar Spine WO Contrast (01/06/2024 8:33 PM CDT) Anatomical Region Laterality Modality Spine N/A Magnetic Resonan ce 01/07/2024 10:3 8 AM CDT Impressions 01/07/2024 12:25 PM CDT Post surgical changes of L5 posterior decompression with laminectomy with mild to moderate degenerative disease as described in detail above. Dictated by: Yoshi Varela MD The radiology attending physician has personally reviewed this study, and had reviewed and/or edited this written report and agrees with it. Electronically signed by: Too Jimenez M.D. Narrative 01/07/2024 12:25 PM CDT EXAMINATION: Magnetic resonance imaging (MRI) of the lumbar spine without contrast HISTORY: Patient with low back pain, prior surgery. TECHNIQUE: Multiplanar multi-weighted MRI of the lumbar spine was performed without intravenous contrast using the standard protocol. COMPARISON: Radiograph lumbar spine from 03/25/2016 FINDINGS: Again noted is laminectomy with posterior decompression at L5 Mild dextrocurvature of the lumbar spine. ??Grade 1 retrolisthesis of L5 on S1. Vertebral bodies demonstrate normal signal intensity on all sequences. There are no compression fractures. The conus medullaris terminates at the level of L1-L2. The distal spinal cord signal intensity is normal. Intervertebral disks have normal height and signal intensity. Annular fissure is present at L4/L5. Left renal parapelvic cysts are present. The aorta is normal. L1-L2: The disc is normal in configuration. There is mild bilateral facet arthropathy. There is no neuroforaminal stenosis. There is no spinal canal stenosis. L2-L3: Diffuse disc bulge. There is mild bilateral facet arthropathy. There is moderate left and mild right neuroforaminal stenosis. There is mild spinal canal stenosis. L3-L4: Diffuse disc bulge. There is mild bilateral facet arthropathy. There is mild bilateral neuroforaminal stenosis. There is no spinal canal stenosis. L4-L5: Mild diffuse disc bulge There is no facet arthropathy. There is moderate right neuroforaminal stenosis. There is no spinal canal stenosis. L5-S1: The disc is normal in configuration. There is no facet arthropathy. There is no neuroforaminal stenosis. There is no spinal canal stenosis. ??Changes of posterior decompression laminectomy. Procedure Note Too Jimenez MD - 01/07/2024 EXAMINATION: Magnetic resonance imaging (MRI) of the lumbar spine without contrast HISTORY: Patient with low back pain, prior surgery. TECHNIQUE: Multiplanar multi-weighted MRI of the lumbar spine was performed without intravenous contrast using the standard protocol. COMPARISON: Radiograph lumbar spine from 03/25/2016 FINDINGS: Again noted is laminectomy with posterior decompression at L5 Mild dextrocurvature of the lumbar spine. Grade 1 retrolisthesis of L5 on S1. Vertebral bodies demonstrate normal signal intensity on all sequences. There are no compression fractures. The conus medullaris terminates at the level of L1-L2. The distal spinal cord signal intensity is normal. Intervertebral disks have normal height and signal intensity. Annular fissure is present at L4/L5. Left renal parapelvic cysts are present. The aorta is normal. L1-L2: The disc is normal in configuration. There is mild bilateral facet arthropathy. There is no neuroforaminal stenosis. There is no spinal canal stenosis. L2-L3: Diffuse disc bulge. There is mild bilateral facet arthropathy. There is moderate left and mild right neuroforaminal stenosis. There is mild spinal canal stenosis. L3-L4: Diffuse disc bulge. There is mild bilateral facet arthropathy. There is mild bilateral neuroforaminal stenosis. There is no spinal canal stenosis. L4-L5: Mild diffuse disc bulge There is no facet arthropathy. There is moderate right neuroforaminal stenosis. There is no spinal canal stenosis. L5-S1: The disc is normal in configuration. There is no facet arthropathy. There is no neuroforaminal stenosis. There is no spinal canal stenosis. Changes of posterior decompression laminectomy. IMPRESSION: Post surgical changes of L5 posterior decompression with laminectomy with mild to moderate degenerative disease as described in detail above. Dictated by: Yoshi Varela MD The radiology attending physician has personally reviewed this study, and had reviewed and/or edited this written report and agrees with it. Electronically signed by: Too Jimenez M.D. Edgar Mckeon MD IMG MRI PROCEDURES Final Resu lt documented in this encounter Visit Diagnoses Diagnosis Lumbar radicular pain- Primary Thoracic or lumbosacral neuritis or radiculitis, unspecified Chronic bilateral low back pain with bilateral sciatica History of lumbar laminectomy Mixed hyperlipidemia Prostate cancer screening Special screening for malignant neoplasm of prostate Lumbar radicular pain Thoracic or lumbosacral neuritis or radiculitis, unspecified Chronic bilateral low back pain with bilateral sciatica History of lumbar laminectomy documented in this encounter Care Teams Fish Hatchery Assistant Relationship Specialty Start Date End Date Edgar Mckeon MD PCP - General 05/04/17 documented as of this encounter
--- OUTSIDE RECORDS SUMMARY | 2024-02-23 15:04 | XMS_ITS | Referral Summary ---
Author Organization [facility] Address [address] [place] [address] Care Team Providers Care Visual Education Teacher Name Role Phone Edgar Mckeon MD Primary Care Provider Encounters Date Type Department Care Team Description 02/17/2024 Orders Only [facility] Health Information Management [address] [place] [id number] Edgar Mckeon MD 01/18/[address] [facility] Medical [facility] Family Medicine at [address] [address] Edgar Mckeon MD Lumbar radicular pain (Primary Dx) 01/06/2024 7:03 PM CDT - 01/06/2024 11:59 PM CDT Hospital Encounter [facility] [address] [place] [id number] Lumbar radicular pain; Chronic bilateral low back pain with bilateral sciatica; History of lumbar laminectomy Discharge Disposition: Discharge to home or self care 12/28/[address] [facility] Medical [facility] Family Medicine at [address] [address] Edgar Mckeon MD Medical Question/Miscellane ous 12/18/2023 9:15 AM CDT Telemedicine [facility] Family Medicine at [address] [place] [address] Edgar Mckeon MD Lumbar radicular pain (Primary Dx); Chronic bilateral low back pain with bilateral sciatica; History of lumbar laminectomy; Mixed hyperlipidemia; Prostate cancer screening from Last 3 Months Allergies Active Allergy Reactions Criticality Noted Date Comments Venom-Honey Bee Hives Medium 08/31/2020 Medications zinc-vit C-pyridoxine, vit B6, 12-60-0.5 mg lozenge 50 mg 1 Active ergocalciferol, vitamin D2, 50 mcg (2,000 unit) tablet 2,000 Units 1 Active aspirin 81 mg enteric coated tablet Take 1 tablet (81 mg total) by mouth daily 1 Active arginine HCl, L-arginine, 1,000 mg tablet Take 1,000 mg by mouth daily 1 Active NON FORMULARY, FOR CLINIC ADMINISTERED MEDICATIONS ONLY, (not in database) 80 each once pycnogenol Active ascorbic acid (vitamin C) 1,000 mg tablet Take 1 tablet (1,000 mg total) by mouth daily Active EPINEPHrine 0.3 mg/0.3 mL auto-injection syringeIndicatio ns:Anaphylaxis Inject 0.3 mL (0.3 mg total) into the muscle as instructed as needed for anaphylaxis Call 911 after use. 2 each 1 3 Active magnesium oxide 400 mg magnesium capsule Take by mouth Active turmeric root extract 500 mg capsule Take by mouth Active atorvastatin (LIPITOR) 40 mg tablet Take 1 tablet (40 mg total) by mouth daily 90 tablet 3 4 Active rOPINIRole (REQUIP) 1 mg tabletIndication s:Restless leg syndrome Take 1 tablet (1 mg total) by mouth 3 (three) times a day 270 tablet 3 4 Active PARoxetine (PAXIL) 40 mg tablet Take 1 tablet (40 mg total) by mouth every morning 90 tablet 3 4 Active baclofen (LIORESAL) 10 mg tablet Take 1 tablet (10 mg total) by mouth daily as needed for muscle spasms 90 tablet 3 4 Active Active Problems Problem Noted Date Diagnosed Date Fatigue 05/29/2022 Chronic insomnia 05/29/2022 NORMA (obstructive sleep apnea) 09/26/2020 Assessment & Plan (10/16/2021 1:59 PM CDT): The patient is currently not using an oral appliance to treat the obstructive sleep apnea. Assessment & Plan (09/26/2020 11:50 AM CDT): With the recent TIA, I did strongly encouraged the patient to start using his oral appliance every night. 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 and 2 mg at bedtime. Due to the patient having more restlessness in his legs I will add clonazepam 0.5 mg p.o. Q bedtime. Assessment & Plan (09/26/2020 11:50 AM CDT): I have refilled his Requip to use 1 mg at 6:00 p.m. and 2 mg at bedtime. This does control his RLS symptoms well. 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 Immunizations Name Administration Dates Next Due Influenza, Unspecified 12/07/2022(Deferr ed: Patient Refused),05/14/2021(Deferred: Patient Refused),12/06/2019(Deferred: Patient Refused) Social History Tobacco Use Types Packs/Day Years [...] on file Legal Sex Male 8:16 AM [employer] Gender Identity Not on file Sexual Orientation Not on file Last Filed Vital Signs Vital Sign Reading Time Taken Comments Blood Pressure 134/88 06/01/2023 3:47 PM CDT Pulse 91 06/01/2023 3:47 PM CDT Temperature 36.7 ??C (98.1 ??F) 06/01/2023 3:47 PM CD T Respiratory Rate 18 05/29/2022 4:10 PM CDT Oxygen Saturation 97% 06/01/2023 3:47 PM CDT Inhaled Oxygen Concentration - - Weight 106.6 kg (235 lb) 01/06/2024 7:10 PM CDT Height 203.2 cm (6' 8 ) 01/06/2024 7:10 PM CDT Body Mass Index 25.82 01/06/2024 7:10 PM CDT Plan of Treatment Not on file Procedures Procedure Name Priority Date/Time Associated Diagnosis Comments SCAN - NEUROLOGY 02/17/2024 MRI LUMBAR SPINE WO CONTRAST Schedule Routine, Read Routine (OP Routine) 01/06/2024 8:33 PM CDT Lumbar radicular pain Chronic bilateral low back pain with bilateral sciatica History of lumbar laminectomy COLONOSCOPY Routine 06/09/2023 PSA SCREEN Routine 10/24/2021 2:41 PM CDT Annual physical exam from Last 3 Months or Most Recently Relevant to Health Maintenance Results * SCAN - NEUROLOGY (02/17/2024) Anatomical Region Laterality Modality Other us Edgar Mckeon MD Final Result * MRI Lumbar Spine WO Contrast (01/06/2024 [...] as described in detail above. Dictated by: Yohsi Varela MD The radiology attending physician has personally reviewed this study, and had reviewed and/or edited this written report and agrees with it. Electronically signed by: Too Jimenez M.D. Edgar Mckeon MD IMG MRI PROCEDURES Final Resu lt * (ABNORMAL) Colonoscopy (06/09/2023) Anatomical Region Laterality Modality Other Historical Provider ENDOSCOPY PROCEDURES Xiomara l Result * PSA screen (10/24/2021 2:41 PM CDT) PSA 0.27 < OR = 4.00 ng/mL [facility] Comment: The total PSA value from this assay system is standardized against the WHO standard. The test result will be approximately 20% lower when compared to the equimolar-standardized total PSA (Adrienne Rigo). Comparison of serial PSA results should be interpreted with this fact in mind. This test was performed using the Siemens chemiluminescent method. Values obtained from different assay methods cannot be used interchangeably. PSA levels, regardless of value, should not be interpreted as absolute evidence of the presence or absence of disease. Blood specimen (specimen) 10/24/2021 2:41 PM CDT 10/24/2021 2:44 PM CDT Narrative [facility] - 10/25/2021 5:37 AM CDT FASTING:YES FASTING: YES Edgar Mckeon MD LAB BLOOD ORDERABLES Final Re sult [facility] [address] [place] [address] from Last 3 Months or Most Recently Relevant to Health Maintenance Insurance [facility] Member Subscriber Plan / Payer (Ef fective 2020-Present) Name:Héctor Pérez Relation to Subscriber:Spouse Name:TYLER PÉREZ Date of :1961 (Home) Address: [address] [place] [phone] Payer ID:[id number] (NAIC) Type:[facility] Address: [facility] [id number] [id number] [employer] [facility] OOS [facility] PPO [place] [employer] OOS Advance Directives For more information, please contact: [phone] * Full Code (Latest Code Status on File) Date Activated Date Inactivated Comments 09/01/2020 12:51 AM 09/01/2020 7:09 PM Care Teams Visual Education Teacher Relationship Specialty Start Date End Date Edgar Mckeon MD PCP - General 05/04/17
--- OUTSIDE RECORDS SUMMARY | 2024-02-23 15:04 | XMS_ITS | Encounter Summary ---
Author Organization [facility] Healthcare Address [address] [place] [address] Care Team Providers Care Controls Project Engineer Name Role Phone Edgar Mckeon MD Primary Care Provider [phone] Reason for Referral * MRI/CAT/PET Scan (Routine) - Closed Specialty Diagnoses / Procedures Referred By Contac t Referred To Contact Radiology Diagnoses Lumbar radicular pain Chronic bilateral low back pain with bilateral sciatica History of lumbar laminectomy Procedures MRI Lumbar Spine WO Contrast Edgar Mckeon MD [address] [place] [address] DR L[address]ON [address] [place] [address] Phone: tel: fax: [address] [address] Referral ID Status Reason Start Date Expiration Date Visits Re quested Visits Authorized [id number] Closed 12/29/2023 02/26/2024 1 1 Reason for Visit * MRI/CAT/PET Scan (Routine) - Closed Specialty Diagnoses / Procedures Referred By Contac t Referred To Contact Radiology Diagnoses Lumbar radicular pain Chronic bilateral low back pain with bilateral sciatica History of lumbar laminectomy Procedures MRI Lumbar Spine WO Contrast Edgar Mckeon MD [address] [place] [address] DR LANDON [address] [place] [address] Phone: tel: fax: [address] [phone] Referral ID Status Reason Start Date Expiration Date Visits Re quested Visits Authorized [id number] Closed 12/29/2023 02/26/2024 1 1 Encounter Details Date Type Department Care Team (Latest Contact Info) Description 01/06/2024 7:03 PM CDT - 01/06/2024 11:59 PM CDT Hospital Encounter 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 Gender Identity Not on file Sexual Orientation Not on file documented as of this encounter Medications at Time of Discharge arginine HCl, L-arginine, 1,000 mg tablet Take 1,000 mg by mouth daily 04/20/2020 ascorbic acid (vitamin C) 1,000 mg tablet Take 1 tablet (1,000 mg total) by mouth daily aspirin 81 mg enteric coated tablet Take 1 tablet (81 mg total) by mouth daily 04/21/2020 atorvastatin (LIPITOR) 40 mg tablet Take 1 tablet (40 mg total) by mouth daily 90 tablet 3 06/01/2023 baclofen (LIORESAL) 10 mg tablet Take 1 tablet (10 mg total) by mouth daily as needed for muscle spasms 90 tablet 3 06/01/2023 EPINEPHrine 0.3 mg/0.3 mL auto-injection syringeIndications :Anaphylaxis Inject 0.3 mL (0.3 mg total) into the muscle as instructed as needed for anaphylaxis Call 911 after use. 2 each 1 11/04/2022 ergocalciferol, vitamin D2, 50 mcg (2,000 unit) tablet 2,000 Units 04/20/2020 magnesium oxide 400 mg magnesium capsule Take [...] times a day 270 tablet 3 06/01/2023 turmeric root extract 500 mg capsule Take by mouth zinc-vit C-pyridoxine, vit B6, 12-60-0.5 mg lozenge 50 mg 04/20/2020 documented as of this encounter Discharge Disposition Disposition Code Departure Means Destination Discharge to home or self care documented in this encounter Plan of Treatment Not on file documented as of this encounter Procedures Procedure Name Priority Date/Time Associated Diagnosis Comments MRI LUMBAR SPINE WO CONTRAST Schedule Routine, Read Routine (OP Routine) 01/06/2024 8:33 PM CDT Lumbar radicular pain Chronic bilateral low back pain with bilateral sciatica History of lumbar laminectomy documented in this encounter Results * MRI Lumbar Spine [...] this encounter Visit Diagnoses Diagnosis Lumbar radicular pain Thoracic or lumbosacral neuritis or radiculitis, unspecified Chronic bilateral low back pain with bilateral sciatica History of lumbar laminectomy documented in this encounter Care Teams Controls Project Engineer Relationship Specialty Start Date End Date Edgar Mckeon MD PCP - General 05/04/17 documented as of this encounter
--- OUTSIDE RECORDS SUMMARY | 2024-02-23 15:04 | XMS_ITS | Clinical Summary ---
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 Encounters Date Type Department Care Team Description 02/17/2024 Orders Only [facility] Health Information Management [address] [place] [address] Edgar Mckeon MD 01/18/2024 Orders Only [facility] Family Medicine at [address] [place] [address] Edgar Mckeon MD Lumbar radicular pain (Primary Dx) 01/06/2024 7:03 PM CDT - 01/06/2024 11:59 PM CDT Hospital Encounter [facility] [address] [place] [address] Lumbar radicular pain; Chronic bilateral low back pain with bilateral sciatica; History of lumbar laminectomy Discharge Disposition: Discharge to home or self care 12/28/2023 Telephone [facility] at [address] [place] [address] Edgar Mckeon MD Medical Question/Miscellane ous 12/18/2023 9:15 AM CDT Telemedicine [facility] at [address] [place] [address] Edgar Mckeon MD Lumbar radicular pain (Primary Dx); Chronic bilateral low back pain with bilateral sciatica; History of lumbar laminectomy; Mixed hyperlipidemia; Prostate cancer screening from Last 3 Months Immunizations Name Administration Dates Next Due Influenza, Unspecified 12/07/2022(Deferr ed: Patient Refused),05/14/2021(Deferred: Patient Refused),12/06/2019(Deferred: Patient Refused) Surgical History Surgery Date Site/Laterality Comments EPIDURAL INJECTION LUMBOSACRAL 12/25/2015 N/A NASAL SEPTUM SURGERY 03/09/2012 - 03/08/2013 SPINE SURGERY 03/09/2014 - 03/08/2015 lapendectomy Medical History Medical History Date Comments Restless leg syndrome TIA (transient ischemic attack) Bulging lumbar disc Family History Medical History Relation Name Comments No Known Problems Brother Heart disease Father Skin cancer Father No Known Problems Maternal Grandfather No Known Problems Maternal Grandmother No Known Problems Mother No Known Problems Paternal Grandfather No Known Problems Paternal Grandmother No Known Problems Sister Relation Name Status Comments Brother Alive Father Maternal Grandfather Maternal Grandmother Mother Alive Paternal Grandfather Paternal Grandmother Sister Alive Social History Tobacco Use Types Packs/Day Years [...] on file 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 Gender Identity Not on file Sexual Orientation Not on file Obstetrics History Last Filed Vital Signs Vital Sign Reading [...] 01/06/2024 7:10 PM CDT Plan of Treatment Health Maintenance Due Date Last Done Comments Hepatitis C Screening 1964 DTaP/Tdap/Td Vaccine (1 - Tdap) 11/20/1975 Hepatitis B Screening 1982 Zoster Vaccine (1 of 2) 2014 Depression Screening 05/30/2023 05/29/2022, 12/06/19 20 Prostate Cancer Screening-PSA 10/25/2023 10/24/2021, 01/28/2017 Influenza Vaccine (#1) 2023 Regular Well Visit/Exam 18-64 05/31/2024 06/01/2023, 01/15/2021, 12/06/2019, Additional history exists Colon Cancer Screening-Colonoscopy 06/08/2026 06/09/2023 Colon Cancer Screening-CT Colonography Discontinued 06/09/2023 Colon Cancer Screening-DNA Stool Discontinued 06/09/2023 Colon Cancer Screening-FIT Discontinued 06/09/2023 Colon Cancer Screening-Sigmoidoscopy Discontinued 06/09/2023 Pneumococcal vaccine <65 Aged Out No longer eligible based on patient's age to complete this topic Procedures Procedure Name Priority Date/Time Associated Diagnosis [...] PSA 0.27 < OR = 4.00 ng/mL [facility] Comment: The total PSA value from this assay system is standardized against the WHO standard. The test result will be approximately 20% lower when compared to the equimolar-standardized total PSA (Adrienne [place]). Comparison of serial PSA results should be [...] MD LAB BLOOD ORDERABLES Final Re sult [facility] [address] [place] [address] from Last 3 Months or Most Recently Relevant to Health Maintenance Insurance [facility] EPO Member Subscriber Plan / Payer (Ef fective 2020-Present) Name:Héctor Pérez Relation to Subscriber:Spouse Name:ESTEVANTYLER A Date of :1961 (Home) Address: [address] [place] [id number] Payer ID:[id number] (NAIC) Type:Employee [employer] Address: [address] ACCESS OOS [facility] PPO [facility] HMO/PPO Address: [facility] [id number] [place] [address] [employer] OOS Advance Directives For more information, please contact: [phone] * Full Code (Latest Code Status on File) Date Activated Date Inactivated Comments 09/01/2020 12:51 AM 09/01/2020 7:09 PM Care Teams Airplane Rigger Relationship Specialty Start Date End Date Edgar Mckeon MD PCP - General 05/04/17
--- OUTSIDE RECORDS SUMMARY | 2024-02-23 15:04 | XMS_ITS | Encounter Summary ---
Author Organization [facility] Healthcare Address [address] [place] [address] Care Team Providers Care Electric Cell Tender Name Role Phone Edgar Mckeon MD Primary Care Provider [phone] Reason for Visit * Reason Onset Date Comments Medical Question/Miscellaneous 05/12/2023 Encounter Details Date Type Department Care Team (Late st Contact Info) Description 05/12/2023 Telephone [facility] Medical Group Family Medicine [address] [place] [phone] Edgar Mckeon MD [address] [place] [address] Medical Question/Miscellaneous Social History Tobacco Use [...] on file 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 T SENIOR MANAGER * Telephone Encounter - Cecy Lopez - 05/12/2023 9:02 AM CST Call Back Caller???s Concern: Patient called back. Orders are not there yet. Staff at [facility] stated that it will be 1.5 hours before they get the faxed orders. Called the back line and spoke with [employer]. Ask for the orders to be resent via [employer]. Let patient know. Suggested he gets a copy of all labs orders inthe future. Does message need to be routed? No T SENIOR MANAGER * Telephone Encounter - Missy Vilchis MA - 05/12/2023 8:34 AM PLANT SENIOR MANAGER Medical Question/Miscellaneous Caller???s Concern: pt is currently at [facility] in [place] and they don't have all the orders. He is needing orders faxed to [phone]. Per Valentina, she will fax orders over to [facility]. Pt informed and he voiced understanding. Does message need to be routed? No T SENIOR MANAGER documented in this encounter Plan of Treatment Not on file documented as of this encounter Visit Diagnoses Not on filedocumented in this encounter Care Teams Electric Cell Tender Relationship Specialty Start Date End Date Edgar Mckeon MD PCP - General 05/04/17 documented as of this encounter
--- OUTSIDE RECORDS SUMMARY | 2024-02-23 15:04 | XMS_ITS | Encounter Summary ---
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 Gender Identity Not on file Sexual Orientation Not on file documented as of this encounter Plan of Treatment Not on file documented as of this encounter Procedures Procedure Name Priority Date/Time Associated Diagnosis Comments CBC WITH AUTO DIFFERENTIAL Routine 05/12/2023 9:30 AM INFORMATION SYSTEMS SECURITY MANAGER TOTAL TESTOSTERONE Routine 05/12/2023 9: 30 AM INFORMATION SYSTEMS SECURITY MANAGER LIPID PANEL Routine 05/12/2023 9:30 AM INFORMATION SYSTEMS SECURITY MANAGER COMPREHENSIVE METABOLIC PANEL Routine 05/12/2023 9:30 AM INFORMATION SYSTEMS SECURITY MANAGER documented in this encounter Results * Testosterone (05/12/2023 9:30 AM INFORMATION SYSTEMS SECURITY MANAGER) [facility] Testosterone 620 250 - 827 ng/dL [facility] 05/12/2023 9:30 AM INFORMATION SYSTEMS SECURITY MANAGER 05/12/2023 9:31 AM INFORMATION SYSTEMS SECURITY MANAGER Narrative [facility] - 05/13/2023 1:25 AM INFORMATION SYSTEMS SECURITY MANAGER FASTING:YES FASTING: YES Edgar Mckeon MD LAB BLOOD ORDERABLES Final Re sult [facility] [address] [place] [address] * CBC with auto differential (05/12/2023 9:30 AM INFORMATION SYSTEMS SECURITY MANAGER) [facility] WBC 4.3 3.8 - 10.8 Thousand/u L [facility] RBC, POC 4.52 4.20 - 5.80 Million/uL [facility] Hgb 13.9 13.2 - 17.1 g/dL [facility] Hct 42.4 38.5 - 50.0 % [facility] MCV 93.8 80.0 - 100.0 fL [facility] MCH 30.8 27.0 - 33.0 pg [facility] MCHC 32.8 32.0 - 36.0 g/dL [facility] Rdw 12.0 11.0 - 15.0 % [facility] Platelets 237 140 - 400 Thousand/u L [facility] MPV 9.6 7.5 - 12.5 fL [facility] Neutrophils, abs 2,107 1,500 - 7,800 cells/uL [facility] Lymphocytes, abs 1,651 850 - 3,900 cells/uL [facility] Monocyte abs 421 200 - 950 cells/uL [facility] Eosinophils, abs 90 15 - 500 cells/uL [facility] Basophils, abs 30 0 - 200 cells/uL [facility] Neutrophils 49 % [facility] Lymphocyte pct 38.4 % [facility] Monocytes 9.8 % [facility] Eosinophils 2.1 % [facility] Basophils 0.7 % [facility] 05/12/2023 9:30 AM INFORMATION SYSTEMS SECURITY MANAGER 05/12/2023 9:31 AM INFORMATION SYSTEMS SECURITY MANAGER Narrative [facility] - 05/13/2023 1:25 AM INFORMATION SYSTEMS SECURITY MANAGER FASTING:YES FASTING: YES Edgar Mckeon MD LAB BLOOD ORDERABLES Final Re sult [facility] [address] [place] [address] * (ABNORMAL) Comprehensive metabolic panel (05/12/2023 9:30 AM INFORMATION SYSTEMS SECURITY MANAGER) Pathologist [facility] Glucose 109(H) 65 - 99 mg/dL [facility] Comment: ? Fasting reference interval For someone without known diabetes, a glucose value between 100 and 125 mg/dL is consistent with prediabetes and should be confirmed with a follow-up test. BUN 17 7 - 25 mg/dL [facility] Creatinine 1.16 0.70 - 1.30 mg/dL [facility] eGFR 73 > OR = 60 mL/min/1.7 3m2 [facility] BUN/creat ratio SEE NOTE: 6 - 22 (calc) [facility] Comment: ?? Not Reported: BUN and Creatinine are within ?? reference range. ? Sodium 136 135 - 146 mmol/L [facility] Potassium, pl 4.8 3.5 - 5.3 mmol/L [facility] Chloride 102 98 - 110 mmol/L [facility] CO2 28 20 - 32 mmol/L [facility] Calcium 10.1 8.6 - 10.3 mg/dL [facility] Protein, sr 7.0 6.1 - 8.1 g/dL [facility] Albumin 4.5 3.6 - 5.1 g/dL [facility] GLOBULIN 2.5 1.9 - 3.7 g/dL (calc) [facility] Alb/glob ratio 1.8 1.0 - 2.5 (calc) [facility] Bilirubin, total 0.8 0.2 - 1.2 mg/dL [facility] Alk phos 57 35 - 144 U/L [facility] AST 23 10 - 35 U/L [facility] ALT (SGPT) 20 9 - 46 U/L [facility] 05/12/2023 9:30 AM INFORMATION SYSTEMS SECURITY MANAGER 05/12/2023 9:31 AM INFORMATION SYSTEMS SECURITY MANAGER Narrative [facility] - 05/13/2023 1:25 AM INFORMATION SYSTEMS SECURITY MANAGER FASTING:YES FASTING: YES Edgar Mckeon MD LAB BLOOD ORDERABLES Final Re sult [facility] [address] [place] [address] * (ABNORMAL) Lipid panel (05/12/2023 9:30 AM INFORMATION SYSTEMS SECURITY MANAGER) Cholesterol 221(H) <200 mg/dL [facility] HDL 38(L) > OR = 40 mg/dL [facility] Triglycerides 128 <150 mg/dL [facility] LDL 158(H) mg/dL (calc) [facility] Comment: Reference range: <100 Desirable range <100 mg/dL for primary prevention; ?? <70 mg/dL for patients with CHD or diabetic patients with > or = 2 CHD risk factors. LDL-C is now calculated using the Sneha calculation, which is a validated novel method providing better accuracy than the Friedewald equation in the estimation of LDL-C. Steven PICKARD et al. DARLENE. 2013;310(19): 3081-4214 (http://education.[employer]/faq/PDW294) Chol/HDL ratio 5.8(H) <5.0 (calc) [facility] Non-HDL, (LDL+VLDL) 183(H) <130 mg/dL (calc) [facility] Comment: For patients with diabetes plus 1 major ASCVD risk factor, treating to a non-HDL-C goal of <100 mg/dL (LDL-C of <70 mg/dL) is considered a therapeutic option. 05/12/2023 9:30 AM INFORMATION SYSTEMS SECURITY MANAGER 05/12/2023 9:31 AM INFORMATION SYSTEMS SECURITY MANAGER Narrative [facility] - 05/13/2023 1:25 AM INFORMATION SYSTEMS SECURITY MANAGER FASTING:YES FASTING: YES us Edgar Mckeon MD LAB BLOOD ORDERABLES Final Re sult [facility] [address] [place] [address] documented in this encounter Visit Diagnoses Not on filedocumented in this encounter Care Teams Neon Sign Maker Relationship Specialty Start Date End Date Edgar Mckeon MD PCP - General 05/04/17 documented as of this encounter
--- OUTSIDE RECORDS SUMMARY | 2024-02-23 15:05 | XMS_ITS | Encounter Summary ---
Author Organization [facility] Address [address] [place] [address] Care Team Providers Care Computer Repair Technician Name Role Phone Edgar Mckeon MD Primary Care Provider [phone] Reason for Visit * Reason Comments Follow-up Encounter Details Date Type Department Care Team (Late st Contact Info) Description 09/26/2020 11:15 AM CDT Office Visit [facility] Pulmonology [address] [facility] [place] [id number] Trevor Maldonado MD [address] [facility] [address] [place] [address] Restless leg syndrome (Primary Dx); NORMA (obstructive sleep apnea) Social History Tobacco Use Types Packs/Day Years Used Date Smoking Tobacco: Never Smokeless Tobacco: Never Alcohol Use Standard Drinks/Week Comments Yes 0 (1 standard drink = 0.6 oz pure alcohol) drinks a couple times a week, wine or beer AUDIT-C Answer Date Recorded Frequency of Alcohol Consumption Never 12/06/2018 Average Number of Drinks Not on file 019 Frequency of Binge Drinking Not on file 11/09 PHQ-2 Answer Date Recorded PHQ-2 Total Score (If total score is 3 or more points, staff should administer the PHQ-9) 0 12/06/2019 Sex and Gender Information Value Date Recorded Sex Assigned at Not on file 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 Gender Identity Not on file Sexual Orientation Not on file documented as of this encounter Last Filed Vital Signs Vital Sign Reading Time Taken Comments Blood Pressure 124/84 09/26/2020 11:15 AM CDT Pulse 87 09/26/2020 11:15 AM CDT Temperature 35.5 ??C (95.9 ??F) 09/26/2020 11:15 AM C DT Respiratory Rate 16 09/26/2020 11:15 AM CDT Oxygen Saturation 97% 09/26/2020 11:15 AM CDT Inhaled Oxygen Concentration - - Weight 108 kg (238 lb) 09/26/2020 11:15 AM CDT Height 203.2 cm (6' 8 ) 09/26/2020 11:15 AM CDT Body Mass Index 26.15 09/26/2020 11:15 AM CDT documented in this encounter Ordered Prescriptions Prescription Sig Dispense Quantity Refills Last Filled Start Date End Date rOPINIRole (REQUIP) 1 mg tabletIndications: Restless leg syndrome Take 1 tablet (1 mg total) by mouth daily with dinner AND 2 tablets (2 mg total) nightly. 270 tablet 3 09/26/2020 2 documented in this encounter Progress Notes * Trevor Maldonado MD - 09/26/2020 11:15 AM CDT Images from the original note were not included. Progress Note Patient: Héctor Pérez ( - 1965) is a 54 y.o. male. Visit Date: 09/26/2020 Chief Complaint Patient presents with ??? Follow-up History of Present Illness: The patient is a 54-year-old male with NORMA and RLS that returns for follow-up. He states that his RLS symptoms are under good control with using 1 mg of Requip at 5-6 p.m. and then 2 mg at bedtime. He is not been using his oral appliance very often to treat his NORMA. He did have a TIA in April and then almost 3 weeks ago after he was stung by a yellow jacket and went into anaphylaxis. Past Medical History: Past Medical History: Diagnosis Date ??? Bulging lumbar disc ??? Restless leg syndrome ??? TIA (transient ischemic attack) Surgical History: Past Surgical History: Procedure Laterality Date ??? EPIDURAL INJECTION LUMBOSACRAL N/A 12/25/2015 ??? NASAL SEPTUM SURGERY 2012 ??? SPINE SURGERY 2015 lapendectomy Current Medications: Current Outpatient Medications Medication Sig Dispense Refill ??? atorvastatin (LIPITOR) 40 mg tablet Take 1 tablet (40 mg total) by mouth daily 90 tablet 3 ??? baclofen (LIORESAL) 10 mg tablet Take 1 tablet (10 mg total) by mouth daily as needed for muscle spasms 90 tablet 1 ??? EPINEPHrine (ADRENALIN) 1 mg/mL (1 mL) injection Inject 0.15 mL (0.15 mg total) into the muscleas instructed as needed for anaphylaxis 1 mL 0 ??? PARoxetine (PAXIL) 20 mg tablet Take 1 tablet (20 mg total) by mouth every morning 90 tablet 3 ??? rOPINIRole (REQUIP) 1 mg tablet Take 1 tablet (1 mg total) by mouth daily with dinner AND 2 tablets (2 mg total) nightly. 270 tablet 3 No current facility-administered medications for this visit. Allergies: Allergies Allergen Reactions ??? Bee Sting [Venom-Honey Bee] Hives Family History: Family History Problem Relation Age of Onset ??? No Known Problems Mother ??? Heart disease Father ??? Skin cancer Father ??? No Known Problems Sister ??? No Known Problems Brother ??? No Known Problems Maternal Grandmother ??? No Known Problems Maternal Grandfather ??? No Known Problems Paternal Grandmother ??? No Known Problems Paternal Grandfather Social History: Social History Socioeconomic History ??? Marital status: Spouse name: None ??? Number of children: None ??? Years of education: None ??? Highest education level: None Occupational History ??? None Tobacco Use ??? Smoking status: Never Smoker ??? Smokeless tobacco: Never Used Substance and Sexual Activity ??? Alcohol use: Yes Comment: drinks a couple times a week, wine or beer ??? Drug use: Never ??? Sexual activity: None Other Topics Concern ??? None Social History Narrative ??? None Social Determinants of Health Financial Resource Strain: ??? Difficulty of Paying Living Expenses: Food Insecurity: ??? Worried About Running Out of Food in the Last Year: ??? Ran Out of Food in the Last Year: Transportation Needs: ??? Lack of Transportation (Medical): ??? Lack of Transportation (Non-Medical): Physical Activity: ??? Days of Exercise per Week: ??? Minutes of Exercise per Session: Stress: ??? Feeling of Stress : Social Connections: ??? Frequency of Communication with Friends and Family: ??? Frequency of Social Gatherings with Friends and Family: ??? Attends Jainism Services: ??? Active Member of Clubs or Organizations: ??? Attends Club or Organization Meetings: ??? Marital Status: Intimate Partner Violence: ??? Fear of Current or Ex-Partner: ??? Emotionally Abused: ??? Physically Abused: ??? Sexually Abused: Review of Systems: Review of Systems Constitutional: Negative for appetite change, fever and unexpected weight change. HENT: Negative for rhinorrhea, sinus pressure, sinus pain, sore throat and tinnitus. Respiratory: Negative for cough, shortness of breath and wheezing. Cardiovascular: Negative for chest pain, palpitations and leg swelling. Gastrointestinal: Negative for abdominal pain, diarrhea and nausea. Genitourinary: Negative for hematuria. Musculoskeletal: Positive for arthralgias and back pain. Negative for myalgias. Skin: Negative for color change. Allergic/Immunologic: Negative for environmental allergies and food allergies. Neurological: Negative for dizziness and light-headedness. Physical Exam: Vitals: 09/26/20 1115 BP: 124/84 Pulse: 87 Resp: 16 Temp: (!) 35.5 ??C (95.9 ??F) TempSrc: Tympanic SpO2: 97% Weight: 108 kg (238 lb) Height: 203.2 cm (6' 8 ) Physical Exam Constitutional: Appearance: He is well-developed. HENT: Head: Normocephalic and atraumatic. Eyes: Pupils: Pupils are equal, round, and reactive to light. Cardiovascular: Rate and Rhythm: Normal rate and regular rhythm. Pulmonary: Effort: Pulmonary effort is normal. Breath sounds: Normal breath sounds. Abdominal: General: Bowel sounds are normal. Palpations: Abdomen is soft. Musculoskeletal: General: Normal range of motion. Cervical back: Normal range of motion and neck supple. Skin: General: Skin is warm and dry. Neurological: Mental Status: He is alert and oriented to person, place, and time. Data Reviewed Images: No results found. Assessment and Plan: Diagnoses and all orders for this visit: Restless leg syndrome (Primary) Assessment & Plan: I have refilled his Requip to use 1 mg at 6:00 p.m. and 2 mg at bedtime. This does control his RLS symptoms well. Orders: - rOPINIRole (REQUIP) 1 mg tablet; Take 1 tablet (1 mg total) by mouth daily with dinner AND 2 tablets (2 mg total) nightly. NORMA (obstructive sleep apnea) Assessment & Plan: With the recent TIA, I did strongly encouraged the patient to start using his oral appliance every night. Rendering Provider & Department: Trevor Maldonado MD documented in this encounter Miscellaneous Notes * Assessment & Plan Note - Trevor Maldonado MD - 09/26/2020 11:50 AM CDT Associated Problem(s): Restless leg syndrome I have refilled his Requip to use 1 mg at 6:00 p.m. and 2 mg at bedtime. This does control his RLS symptoms well. * Assessment & Plan Note - Trevor Maldonado MD - 09/26/2020 11:49 AM CDT Associated Problem(s): NORMA (obstructive sleep apnea) With the recent TIA, I did strongly encouraged the patient to start using his oral appliance every night. documented in this encounter Plan of Treatment Not on file documented as of this encounter Visit Diagnoses Diagnosis Restless leg syndrome- Primary Restless legs syndrome (RLS) NORMA (obstructive sleep apnea) Obstructive sleep apnea (adult) (pediatric) documented in this encounter Discontinued Medications Medication Sig Discontinue Reason Start Date End Da te rOPINIRole (REQUIP) 1 mg tablet Take 1 tablet (1 mg total) by mouth daily with dinner AND 2 tablets (2 mg total) nightly. Reorder 09/17/2020 09/26/2020 documented as of this encounter Care Teams Computer Repair Technician Relationship Specialty Start Date End Date Edgar Mckeon MD PCP - General 05/04/17 documented as of this encounter
--- OUTSIDE RECORDS SUMMARY | 2024-02-23 15:05 | XMS_ITS | Encounter Summary ---
Author Organization [facility] Address [address] [place] [address] Care Team Providers Care Security Manager Name Role Phone Edgar Mckeon MD Primary Care Provider [phone] Encounter Details Date Type Department Care Team (Late st Contact Info) Description 06/14/2019 8:35 AM CDT - 07/06/2020 11:59 PM CDT Hospital Encounter [facility] Trevor Maldonado MD [address] 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 Gender Identity Not on file Sexual Orientation Not on file documented as of this encounter Medications at Time of Discharge arginine HCl, L-arginine, 1,000 mg tablet Take 1,000 mg by mouth daily 04/20/2020 aspirin 81 mg enteric coated tablet Take 1 tablet (81 mg total) by mouth daily 04/21/2020 ergocalciferol, vitamin D2, 50 mcg (2,000 unit) tablet 2,000 Units 04/20/2020 zinc-vit C-pyridoxine, vit B6, 12-60-0.5 mg lozenge 50 mg 04/20/2020 arginine HCl, L-arginine, 1,000 mg tablet Take 1,000 mg by mouth daily 08/31/2020 atorvastatin (LIPITOR) 40 mg tablet Take 1 tablet (40 mg total) by mouth daily 90 tablet 3 12/06/2019 01/15/2021 baclofen (LIORESAL) 10 mg tablet Take 1 tablet (10 mg total) by mouth daily as needed for muscle spasms 90 tablet 1 12/06/2019 06/01/2023 Far[place] red pine bark extract (Algaeon PINE BK EXT, BULK,) 95 % powder Take 80 mg by mouth daily 08/31/2020 PARoxetine (PAXIL) 20 mg tablet Take 1 tablet (20 mg total) by mouth every morning 90 tablet 3 12/06/2019 01/15/2021 PARoxetine (PAXIL) 20 mg tablet Take 20 mg by mouth daily 04/20/2020 03/14/2021 rOPINIRole (REQUIP) 1 mg tablet TK 1 T PO QHS 11/30/2019 08/02/2020 rOPINIRole (REQUIP) 2 mg tablet Take 3 mg by mouth daily 2 12/01/2018 08/31/2020 documented as of this encounter Plan of Treatment Not on file documented as of this encounter Visit Diagnoses Not on filedocumented in this encounter Care Teams Security Manager Relationship Specialty Start Date End Date Edgar Mckeon MD PCP - General 05/04/17 documented as of this encounter
--- OUTSIDE RECORDS SUMMARY | 2024-02-23 15:05 | XMS_ITS | Encounter Summary ---
Author Organization [facility] Healthcare Address [address] [place] [address] Care Team Providers Care Math And Science Instructor Name Role Phone Edgar Mckeon MD Primary Care Provider [phone] Reason for Visit * Reason Comments Allergic Reaction * Auth/Cert Specialty Diagnoses / Procedures Referred By Contac t Referred To Contact Diagnoses Hypokalemia Anaphylaxis due to hymenoptera venom, accidental or unintentional, initial encounter 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 Procedures NA Referral ID Status Reason Start Date Expiration Date Visits Re quested Visits Authorized [id number] 1 1 Encounter Details Date Type Department Care Team (Latest Contact Info) Description 08/31/2020 8:59 PM CDT - 09/01/2020 3:09 PM CDT Hospital Encounter [address] [id number] Ye Walker MD [address] [place] [id number] Nehmeias Downs MD [address] [place] [id number] 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 (Primary Dx); Hypokalemia Discharge Disposition: Discharge to home or self [...] on file Legal Sex Male 8:[address] Gender Identity Not on file Sexual Orientation Not on file documented as of this encounter Last Filed Vital Signs Vital Sign Reading Time Taken Comments Blood Pressure 112/73 09/01/2020 12:00 PM CDT Pulse 69 09/01/2020 12:00 PM CDT Temperature 36.4 ??C (97.6 ??F) 09/01/2020 1 2:00 PM CDT Respiratory Rate 16 09/01/2020 12:0 0 PM CDT Oxygen Saturation 96% 09/01/2020 12: 00 PM CDT Inhaled Oxygen Concentration - - Weight 107.5 kg (236 lb 14.4 oz) 2020 12:00 AM CDT Height 203.2 cm (6' 8 ) 09/01/2020 12:0 0 AM CDT Body Mass Index 26.02 09/01/2020 12:00 AM CDT documented in this encounter Discharge Summaries * Nehemias Downs MD - 09/01/2020 12:02 PM CDT Images from the original note were not included. Hypokalemia was resolved Hospitalist Discharge Summary Patient Name: Héctor Pérez / 54 y.o. / male : 1965 PCP: Edgar Mckeon MD Date of Admit: 08/31/2020 Date of DC : 08/31/20 Admitting Dx: Anaphylaxis due to hymenoptera venom DISCHARGE DIAGNOSES: Principal Problem: Anaphylaxis due to hymenoptera venom Active Problems: Restless leg syndrome Hyperlipidemia Mood disorder (CMS/HCC) Resolved Problems: No resolved hospital problems. PROCEDURES: None CONSULTANTS: None Hospital Course: Héctor Pérez is a 54 y.o. male with past medical history of hyperlipidemia, TIA and RLS, was admitted for anaphylaxis secondary to bee stings, he receive epinephrine and IV diphenhydramine patient clinical condition improved blood pressure was control no evidence of respiratory distress he is medically cleared to be discharged with prescribed epinephrine pen and give prescribed him for cetirizine I recommended following up with primary care within 1 week. Discharge medications and new prescriptions: Héctor Pérez Home Medication Instructions NICKIE:[id number] Printed on:09/01/20 [id number] Medication Information atorvastatin (LIPITOR) 40 mg tablet Take 1 tablet (40 mg total) by mouth daily baclofen (LIORESAL) 10 mg tablet Take 1 tablet (10 mg total) by mouth daily as needed for muscle spasms PARoxetine (PAXIL) 20 mg tablet Take 1 tablet (20 mg total) by mouth every morning rOPINIRole (REQUIP) 1 mg tablet Take 1 tablet (1 mg total) by mouth nightly Significant Medication Changes: EpiPen given prescription for 30 days will recommend follow-up with PCP for for refill is needed Discharge Lab Data: Hematology Lab History Some values may be hidden. Unless noted otherwise, only the newest values recorded on each date aredisplayed. Labs - Hematology Latest Ref Range 04/20/20 08/31/20 09/01/20 WBC 3.8 - 9.9 K/cumm 4.5 12.2 (A) 6.9 Total Hb, POC 13.0 - 17.5 g/dL 15.0 15.0 13.3 Hct 38.9 - 50.3 % 44.1 45.4 39.8 Plt 150 - 400 K/cumm 185 284 187 Neutrophil abs 1.7 - 6.5 K/cumm 2,000 5.3 4.9 Lymphocytes, abs 0.8 - 3.3 K/cumm 1.9 5.9 (A) 1.4 Some values recorded on this date have been omitted. Some abnormal values recorded on this date have been omitted. (A) Abnormal value Chem/LFT Lab History Some values may be hidden. Unless noted otherwise, only the newest values recorded on each date aredisplayed. Labs-Chem/LFT Latest Ref Range 04/20/20 08/31/20 09/01/20 Sodium 135 - 145 mmol/L 139 137 139 Potassium Lvl 3.3 - 5.1 mmol/L 4.2 BUN 8 - 25 mg/dL 15 Creatinine 0.80 - 1.30 mg/dL 1.1 1.40 (A) 1.20 Bilirubin, total 0.1 - 1.2 mg/dL 0.8 0.8 AST 10 - 50 Units/L 23 24 ALT 7 - 55 Units/L 20 19 CrCl- Actual Body Weight (Cockcroft-Gault) 112.7 89.4 105.7 Some values recorded on this date have been omitted. (A) Abnormal value Comments are available for some flowsheets but are not being displayed. Labs Needing Follow Up: None Discharge Physical Exam: Weight: 107.5 kg (236 lb 14.4 oz) BP 112/74 (BP Location: Left arm) Pulse 64 Temp 36.6 ??C (97.9 ??F) (Oral) Resp 18 Ht 203.2cm (6' 8 ) Wt 107.5 kg (236 lb 14.4 oz) SpO2 98% BMI 26.02 kg/m?? General: alert, cooperative, in NAD HEENT: unremarkable Lungs: CTAB CV: RRR, no murmurs, normal s1, s2 Abdomen: soft, non tender, BS+ve Skin: no rashes. Normal skin turgor Outpatient Follow-Up: Future Appointments Date Time Provider Department Center 12/04/2020 8:00 AM Edgar Mckeon MD [facility] BLV 400 MG Decent Discharge Condition: stable. Disposition: home. Patient instructions: Activity: activity as tolerated. Diet: Adult Diet Regular Wound Care: none needed. Follow-up: Edgar Mckeon MD Code Status At time of Discharge: Full Code More than 32 minutes were spent in this discharge activity. Discharge instructions using teach back, understanding assessed and validated. Nehemias Villalpando MD 12:03 PM 09/01/2020 [facility] Hospitalist Group documented in this encounter Discharge Instructions * Attachments The following attachments cannot be sent through Care Everywhere. * Anaphylaxis (Discharge Care) (Guyanese) * Insect Bite or Sting (Discharge Care) (Guyanese) documented in this encounter Medications at Time of Discharge arginine HCl, L-arginine, 1,000 mg tablet Take 1,000 mg by mouth daily 04/20/2020 aspirin 81 mg enteric coated tablet Take 1 tablet (81 mg total) by mouth daily 04/21/2020 ergocalciferol, vitamin D2, 50 mcg (2,000 unit) tablet 2,000 Units 04/20/2020 zinc-vit C-pyridoxine, vit B6, 12-60-0.5 mg lozenge 50 mg 04/20/2020 cetirizine (ZyrTEC) 10 mg tablet Take 1 tablet (10 mg total) by mouth daily for 7 doses 7 tablet 09/01/2020 1 atorvastatin (LIPITOR) 40 mg tablet Take 1 tablet (40 mg total) by mouth daily 90 tablet 3 12/06/2019 1 baclofen (LIORESAL) 10 mg tablet Take 1 tablet (10 mg total) by mouth daily as needed for muscle spasms 90 tablet 1 12/06/2019 4 EPINEPHrine (ADRENALIN) 1 mg/mL (1 mL) injectionIndicat ions:Anaphylaxis Inject 0.15 mL (0.15 mg total) into the muscle as instructed as needed for anaphylaxis 1 mL 09/01/2020 3 PARoxetine (PAXIL) 20 mg tablet Take 1 tablet (20 mg total) by mouth every morning 90 tablet 3 12/06/2019 1 PARoxetine (PAXIL) 20 mg tablet Take 20 mg by mouth daily 04/20/2020 2 rOPINIRole (REQUIP) 1 mg tablet Take 1 tablet (1 mg total) by mouth nightly 90 tablet 08/02/2020 1 documented as of this encounter Ordered Prescriptions Prescription Sig Dispense Quantity Refills Last Filled Start Date End Date cetirizine (ZyrTEC) 10 mg tablet Take 1 tablet (10 mg total) by mouth daily for 7 doses 7 tablet 09/01/2020 1 EPINEPHrine (ADRENALIN) 1 mg/mL (1 mL) injectionIndicatio ns:Anaphylaxis Inject 0.15 mL (0.15 mg total) into the muscle as instructed as needed for anaphylaxis 1 mL 09/01/2020 3 documented in this encounter Discharge Disposition Disposition Code Departure Means Destination Discharge to home or self care documented in this encounter H&P Notes * Ye Walker MD - 08/31/2020 11:05 PM CDT Images from the original note were not included. History and Physical Date of Service: 09/01/2020 Primary Care Physician: Edgar Mckeon MD [phone] CHIEF COMPLAINT: Patient is a 54 y.o. male with a PMHx significant for HLD, TIA and RLS. Presents to the ED with a chief complaint of hives. HPI: Patient believes he was stung by a bee on his back earlier today. Started developing diffuse hives and took oral diphenhydramine. Per EMS report the patient was noted to have a period of unresponsiveness with associated difficulty breathing. She was instructed to start CPR but only gave one compress ion before the patient yelled out. Was given 0.5 mg epinephrine on route via EMS and 50 mg IV diphenhydramine. Was given IV lorazepam in the ED. Patient reports he has only had a localized reaction to bee stings in the past. K 2.8. Cr 1.40, WBC 12.2 Past Medical History: Diagnosis Date ??? Bulging lumbar disc ??? Restless leg syndrome ??? TIA (transient ischemic attack) Past Surgical History: Procedure Laterality Date ??? EPIDURAL INJECTION LUMBOSACRAL N/A 12/25/2015 ??? NASAL SEPTUM SURGERY 2012 ??? SPINE SURGERY 2015 lapendectomy Medications Prior to Admission Medication Sig Dispense Refill Last Dose ??? rOPINIRole (REQUIP) 1 mg tablet Take 1 tablet (1 mg total) by mouth nightly (Patient taking differently: Take 3 mg by mouth nightly ) 90 tablet 0 08/31/2020 ??? atorvastatin (LIPITOR) 40 mg tablet Take 1 tablet (40 mg total) by mouth daily 90 tablet 3 Unknown ??? baclofen (LIORESAL) 10 mg tablet Take 1 tablet (10 mg total) by mouth daily as needed for muscle spasms 90 tablet 1 Unknown ??? PARoxetine (PAXIL) 20 mg tablet Take 1 tablet (20 mg total) by mouth every morning 90 tablet 3 Unknown Allergies Allergen Reactions ??? Bee Sting [Venom-Honey Bee] Hives Social History Tobacco Use ??? Smoking status: Never Smoker ??? Smokeless tobacco: Never Used Substance Use Topics ??? Alcohol use: Yes Comment: drinks a couple times a week, wine or beer Family History Problem Relation Age of Onset ??? No Known Problems Mother ??? Heart disease Father ??? Skin cancer Father ??? No Known Problems Sister ??? No Known Problems Brother ??? No Known Problems Maternal Grandmother ??? No Known Problems Maternal Grandfather ??? No Known Problems Paternal Grandmother ??? No Known Problems Paternal Grandfather Review of Systems: Review of Systems Constitutional: Negative for appetite change and chills. HENT: Negative for rhinorrhea, sore throat and trouble swallowing. Eyes: Negative for pain and redness. Respiratory: Positive for shortness of breath and wheezing. Cardiovascular: Negative for palpitations and leg swelling. Gastrointestinal: Negative for abdominal distention and abdominal pain. Genitourinary: Negative for dysuria and urgency. Musculoskeletal: Negative for gait problem and joint swelling. Neurological: Positive for light-headedness. Negative for weakness. Psychiatric/Behavioral: Negative for behavioral problems and dysphoric mood. OBJECTIVE: Vitals: Arrival Vitals Temp 08/31/20 2107 36.5 ??C (97.7 ??F) Pulse 08/31/20 210 99 Resp 08/31/20 2107 18 BP 08/31/202106 146/81 SpO2 08/31/202106 98 % Temp src 08/31/202106 Oral Heart Rate Source 08/31/20 2222 Monitor Patient Position 08/31/20 2222 Sitting BP Location 08/31/20 2222 Right arm FiO2 (%) -- Most Recent : Vitals: 09/01/20 0005 09/01/20 0020 09/01/20 0300 09/01/20 0410 BP: 92/45 (!) 86/50 106/66 BP Location: Left arm Patient Position: Pulse: 76 78 68 Resp: 14 Temp: 36.7 ??C (98 ??F) 36.4 ??C (97.6 ??F) TempSrc: Oral SpO2: 95% Weight: Height: No intake/output data recorded. I/O this shift: In: 10 [I.V.:10] Out: - Physical Exam: Physical Exam Vitals reviewed. Constitutional: General: He is not in acute distress. Appearance: Normal appearance. He is not diaphoretic. HENT: Head: Normocephalic and atraumatic. Nose: Nose normal. Mouth/Throat: Mouth: Mucous membranes are moist. Pharynx: Oropharyngeal exudate present. No posterior oropharyngeal erythema. Eyes: Extraocular Movements: Extraocular movements intact. Conjunctiva/sclera: Conjunctivae normal. Cardiovascular: Rate and Rhythm: Normal rate and regular rhythm. Pulses: Normal pulses. Heart sounds: No murmur heard. No gallop. Pulmonary: Effort: Pulmonary effort is normal. Breath sounds: Normal breath sounds. Abdominal: General: Bowel sounds are normal. There is distension. Tenderness: There is no abdominal tenderness. Musculoskeletal: General: No swelling or tenderness. Cervical back: Normal range of motion and neck supple. Skin: General: Skin is warm and dry. Comments: Small minimally raised lesion upper left back. No hives or dermatography Neurological: General: No focal deficit present. Mental Status: He is alert and oriented to person, place, and time. Comments: Somnolent, arousable Lab/Radiology/Diagnostic Review: Recent Results (from the past 24 hour(s)) CBC with auto differential Collection Time: 08/31/20 9:38 PM Result Value Ref Range WBC 12.2 (H) 3.8 - 9.9 K/cumm Hgb 15.0 13.0 - 17.5 g/dL Hct 45.4 38.9 - 50.3 % Plt 284 150 - 400 K/cumm MPV 9.7 9.1 - 12.3 fL RBC 4.94 4.30 - 5.80 M/cumm MCV 91.9 81.3 - 96.4 fL MCH 30.4 27.1 - 33.3 pg MCHC 33.0 32.3 - 35.7 g/dL RDW CV 12.2 11.1 - 14.9 % RDW SD 40.4 35.7 - 48.1 fL NRBC abs 0.00 0.00 - 0.01 K/cumm Comprehensive metabolic panel Collection Time: 08/31/20 9:38 PM Result Value Ref Range Sodium 137 135 - 145 mmol/L Potassium, pl 2.8 (L) 3.3 - 4.9 mmol/L Chloride 99 97 - 110 mmol/L CO2 23 22 - 32 mmol/L Anion gap 15 2 - 15 mmol/L BUN 17 8 - 25 mg/dL Creatinine 1.40 (H) 0.80 - 1.30 mg/dL Glucose 204 (H) 70 - 199 mg/dL Calcium 8.7 8.5 - 10.3 mg/dL Bilirubin, total 0.8 0.1 - 1.2 mg/dL Protein, pl 6.6 6.5 - 8.5 g/dL Albumin 4.1 3.5 - 5.0 g/dL Alk phos 53 40 - 130 Units/L ALT 19 7 - 55 Units/L AST 24 10 - 50 Units/L Differential, auto Collection Time: 08/31/20 9:38 PM Result Value Ref Range Neutrophil abs 5.3 1.7 - 6.5 K/cumm Imm gran abs 0.0 0.0 - 0.1 K/cumm Lymphocyte abs 5.9 (H) 0.8 - 3.3 K/cumm Monocyte abs 0.8 0.2 - 0.8 K/cumm Eosinophil abs 0.1 0.0 - 0.5 K/cumm Basophil abs 0.0 0.0 - 0.1 K/cumm Neutrophil pct 43.3 % Imm gran pct 0.3 % Lymphocyte pct 48.6 % Monocyte pct 6.6 % Eosinophil pct 1.0 % Basophil pct 0.2 % Manual Differential Collection Time: 08/31/20 9:38 PM Result Value Ref Range Differential Auto RBC morphology Consistent with RBC Indicies Poikilocytosis Slight (A) Platelet estimate Automated Count Confirmed eGFR Collection Time: 08/31/20 9:38 PM Result Value Ref Range GFR 56 mL/min/1.73 m2 No results found. ASSESSMENT/PLAN: Principal Problem: Anaphylaxis due to hymenoptera venom Active Problems: Restless leg syndrome Hyperlipidemia Mood disorder (CMS/HCC) Resolved Problems: No resolved hospital problems. Anaphylaxis due to hymenoptera venom - PRN epinephrine and diphenhydramine - PRN albuterol wheezing - continuous pulse oximetry - hold home meds tonight - differential includes drug induced anaphylactic reaction, though less likely, patient unable to tell me if he takes any new meds, none noted on external med fill Hypotension - secondary to above - giving additional fluid bolus - continue fluids - monitor bp RLS - complains of leg pain as well as abnormal sensation which suggests additional or alternative diagnosis - hold psychotropic medications tonight with somnolence - can restart home ropinole in am if improving - check ferritin level (last done 2015) HLD/Hx TIA - hold statin tonight Leukocytosis - no overt infection - monitor off abx VINH - hypotension from anaphylaxis - fluids - recheck creatinine in the am Hypokalemia - likely from transcellular shift from epinephrine - recheck in am, will give additional K at that time if still low - check mag Full Code ESTIMATED LENGTH OF STAY: Past Midnight Tomorrow Approximate time spent for chart review, assessment, interview, and note - 80 min Medical Decision Making Complexity: High DVT prophylaxis: Low risk Voice recognition software MModal Fluency Direct may have been used to dictate and transcribe this document. Special Events Coordinator variances may occur. Despite proofreading, typographical errors may occur. Ye Walker MD 09/01/2020 6:37 AM documented in this encounter ED Notes * Erin Carpenter PA - 08/31/2020 9:47 PM CDT HPI Chief Complaint Patient presents with ??? Allergic Reaction Patient is a 54-year-old male who presented to the ER for evaluation of an allergic reaction. Patient was stung by a bee on his back and then developed hives over his entire body. He took 50 mg of Benadryl p.o. and then took a shower. His went to check on him and he developed worsening hives over his entire body and then became very lethargic and felt like he was going to pass out. His helped him sit down on the toilet and he then became unresponsive and she was able to slid him to the floor. Patient's states he was breathing but seemed to be having difficulty stating he was barely breathing. At that time she was on the phone with 911 she was instructed to begin CPR. Patient states she gave 1 compression and the patient yelled. At that time she stopped. When EMS arrived patient was still lethargic and covered in hives. He was given subcu epi 0.5 mg x 3 and 50 mg of Benadryl IV. He was also given IV Toradol for complaints of bilateral leg pain with a history of restless legs syndrome. Patient is complaining of bilateral leg pain due to his restless leg syndrome at thistime. He is also complaining of feeling funny . He denies any shortness of breath. History provided by: Patient photonics engineering technologist used: No Patient History: Patient Active Problem List Diagnosis Date Noted ??? Anaphylaxis due to hymenoptera venom 08/31/2020 ??? Episode of visual loss of both eyes 04/20/2020 ??? Speech delay, expressive 04/20/2020 ??? Spell of altered cognition 04/20/2020 ??? Annual physical exam 12/06/2019 ??? 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 Bulging lumbar disc ??? Restless leg syndrome ??? TIA (transient ischemic attack) Past Surgical History: Procedure Laterality Date ??? EPIDURAL INJECTION LUMBOSACRAL N/A 12/25/2015 ??? NASAL SEPTUM SURGERY 2012 ??? SPINE SURGERY 2015 lapendectomy Family History Problem Relation Age of Onset ??? No Known Problems Mother ??? Heart disease Father ??? Skin cancer Father ??? No Known Problems Sister ??? No Known Problems Brother ??? No Known Problems Maternal Grandmother ??? No Known Problems Maternal Grandfather ??? No Known Problems Paternal Grandmother ??? No Known Problems Paternal Grandfather Social History Tobacco Use ??? Smoking status: Never Smoker ??? Smokeless tobacco: Never Used Substance Use Topics ??? Alcohol use: Yes Comment: drinks a couple times a week, wine or beer ??? Drug use: Never Social History Social History Narrative ??? Not on file Review of Systems Review of Systems All other systems reviewed and are negative. Physical Exam ED Triage Vitals Temp Pulse Resp BP SpO2 08/31/20 2107 08/31/20 2107 08/31/20210608/31/20210608/31/202106 36.5 ??C (97.7 ??F) 99 18 146/81 98 % Temp src Heart Rate Source Patient Position BP Location FiO2 (%) 08/31/20 2107 08/31/20 22208/31/20 22208/31/202221 -- Oral Monitor Sitting Right arm Physical Exam Vitals and nursing note reviewed. Constitutional: Appearance: He is not ill-appearing. HENT: Head: Normocephalic. Right Ear: External ear normal. Left Ear: External ear normal. Nose: Nose normal. Mouth/Throat: Mouth: Mucous membranes are moist. Eyes: Conjunctiva/sclera: Conjunctivae normal. Cardiovascular: Rate and Rhythm: Normal rate and regular rhythm. Pulses: Normal pulses. Pulmonary: Effort: Pulmonary effort is normal. No respiratory distress. Breath sounds: No wheezing. Abdominal: Palpations: Abdomen is soft. Musculoskeletal: General: Normal range of motion. Skin: General: Skin is warm and dry. Neurological: Mental Status: He is alert. Mental status is at baseline. Psychiatric: Mood and Affect: Mood normal. Behavior: Behavior normal. MDM Medical Decision Making Differential Diagnosis or Management Options: Due to hypokalemia and severe anaphylactic reaction Idiscussed case with Dr. Walker who accepted patient for admission. I discussed all diagnostic testresults and need for admission with patient and his were agreeable with admission plans. All questions answered. They agree with: Admission ED Course as of Aug 31 2308 Time: 08/31 2302 Comment: Discussed case with Dr. Walker who accepted the patient for admission. By: Erin Carpenter PA Final diagnoses: 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 Hypokalemia Erin Carpenter PA 08/31/202310 Cosigned by Ernie Carr DO at 09/01/2020 3:42 AM CDT * Sissy Staples RN - 08/31/2020 9:12 PM CDT Hives noted on trunk. Pt reports he has experienced swelling from bee sting before but has never experienced a reaction to this extent. Pt denies swelling in throat. 08/31/202110 Integumentary Integumentary (WDL) X Skin Pertinent Negatives Intact;Warm Skin Integrity Rash Sissy Staples RN 08/31/202112 * Sissy Staples RN - 08/31/2020 9:00 PM CDT Pt to ED via [facility] with mounter flutes and piccolos allergic reaction to bee sting approximately 1 hour prior to calling EMS. Per EMS, patient took two tabs of benadryl and went to take a shower. At some point during the shower, reports patient became unresponsive. Pt's performed 2 chest compressions beforepatient becoming alert again. Upon EMS arrival patient was lethargic, altered and hypotensive with full body hives. Pt received 3 rounds of 0.5mg IM Epi, 50mg IV benadryl, 15mg of toradol ( for restless leg pain ), 600 ml of LR. Upon arrival patient is AxO x 4. No respiratory distress noted. Sissy Staples RN documented in this encounter Miscellaneous Notes * Plan of Care - Josie Foreman RN - 09/01/2020 3:46 AM CDT Problem: Facility Isolation Psychosocial Wellbeing Description: Resident at risk for psychosocial wellbeing concern related to medical and visitation restrictions secondary to COVID-19 Goal: Resident will not show a decline in psychosocial wellbeing or experience adverse effects through next review Description: 1. Educate resident, family, resident representatives, staff and visitors of COVID-19 signs and symptoms and precautions 2. Provide emotional support and allow resident to express feelings, fears, and concerns 3. Observe for psychosocial and mental status changes, document and update social security assessor and MD as needed 4. Provide in room activities of choice if indicated 5. Provide alternative methods of communication with family/visitors 6. Assure resident, family, and resident representatives facility is taking precautions to keep them safe 7. Update resident, family, and resident representatives as needed Outcome: Progressing Problem: COVID-19 Prevention and Monitoring Description: Resident requires monitoring and prevention as they relate to COVID-19 Goal: Resident will show no signs or symptoms of COVID-19 Description: 1. Monitor frequently for potential symptoms including fever and respiratory symptoms 2. Educate resident, family, resident representatives, staff and visitors of COVID-19 signs and symptoms and precautions 3. Remind residents to report if they feel feverish or have symptoms of respiratory infection 4. Reinforce no visitor policy and non-essential health care personnel policy, except for certain compassionate care situations 5. When visitors are necessary and meet exception to no visitor policy, limit to a specified room, encourage social distancing with no handshakes, physical contact, and remaining 6 feet apart 6. Update resident, family, and resident representatives as needed Outcome: Progressing Problem: Health Behavior: Goal: Understanding of discharge needs will improve Outcome: Progressing Goals: Patient safety and comfort. Maintaining blood pressure and monitoring electrolytes. Summary: Patient's bee sting is present and red but not raised. Full body hives no longer present. Patient comfortable and sleeping. Patient's low blood pressure being treated with normal saline bolus. Patient O2 sats 98% but complains of trouble breathing so patient is on continuous pulse ox. documented in this encounter Plan of Treatment Not on file documented as of this encounter Procedures Procedure Name Priority Date/Time Associated Diagnosis Comments EGFR Routine 09/01/2020 9:20 AM CDT DIFFERENTIAL AUTO Routine 09/01/2020 9:2 0 AM CDT CBC WITH AUTO DIFFERENTIAL Routine 09/01/2020 9:20 AM CDT TRYPTASE Routine 09/01/2020 9:20 AM CDT BASIC METABOLIC PANEL Routine 09/01/2020 9:20 AM CDT EGFR Routine 09/01/2020 6:57 AM CDT CBC WITHOUT DIFFERENTIAL Routine 09/01/2020 6:57 AM CDT PHOSPHORUS Routine 09/01/2020 6:57 AM CDT MAGNESIUM Routine 09/01/2020 6:57 AM CDT FERRITIN Routine 09/01/2020 6:57 AM CDT BASIC METABOLIC PANEL Routine 09/01/2020 6:57 AM CDT ECG 12-LEAD STAT 08/31/2020 11:02 PM CDT EGFR STAT 08/31/2020 9:38 PM CDT DIFFERENTIAL AUTO STAT 08/31/2020 9:3 8 PM CDT CBC WITH AUTO DIFFERENTIAL STAT 08/31/2020 9:38 PM CDT MANUAL DIFFERENTIAL STAT 08/31/2020 9 :38 PM CDT COMPREHENSIVE METABOLIC PANEL STAT 08/31/2020 9:38 PM CDT documented in this encounter Results * eGFR (09/01/2020 9:20 AM CDT) [facility] eGFR 68 mL/min/1.7 3 m2 [facility] Comment: Interpretive Data Reference Interval Normal ?>/= 90 mL/min/1.73m2 Mildly decreased* ? 60 - 89 mL/min/1.73m2 Mildly to moderately decreased ?45 - 59 mL/min/1.73m2 Moderately to severely decreased ??30 - 44 mL/min/1.73m2 Severely decreased ?15 - 29 mL/min/1.73m2 Kidney Failure ?< 15 ??mL/min/1.73m2 *Relative to young adult level Estimated glomerular filtration rate is determined by the CKD-EPI equation recommended by the National Kidney Foundation (KDIGO 2012 Clinical Practice Guideline for the Evaluation and Management of Chronic Kidney Disease. Kidney Intnl Suppl Mar 2012;3:1). The CKD-EPI equation should not be used for patients with unstable renal function and has not been validated in children and those over 70. Current interpretive data was last reviewed 2020 Blood specimen (specimen) 09/01/2020 9:20 AM CDT 09/01/2020 9:31 AM CDT us Nehemias Pedroza MD LAB BLOOD ORDERABLES Final Result [facility] [address] [facility] [place] [address] * Differential, auto (09/01/2020 9:20 AM CDT) Neutrophil abs 4.9 1.7 - 6.5 K/cumm [facility] Imm gran abs 0.0 0.0 - 0.1 K/cumm [facility] Lymphocyte abs 1.4 0.8 - 3.3 K/cumm [facility] Monocyte abs 0.5 0.2 - 0.8 K/cumm [facility] Eosinophil abs 0.1 0.0 - 0.5 K/cumm [facility] Basophil abs 0.0 0.0 - 0.1 K/cumm [facility] Neutrophil pct 71.1 % [facility] Comment: Interpretive Data Percent cell count reference ranges are not reported, since discordance with absolute values may lead to misinterpretation of CBC data. Current Interpretive Data was last revised on 2017. Imm gran pct 0.4 % [facility] Comment: Interpretive Data Percent cell count reference ranges are not reported, since discordance with absolute values may lead to misinterpretation of CBC data. Current Interpretive Data was last revised on 2017. Lymphocyte pct 20.0 % [facility] Comment: Interpretive Data Percent cell count reference ranges are not reported, since discordance with absolute values may lead to misinterpretation of CBC data. Current Interpretive Data was last revised on 2017. Monocyte pct 7.2 % [facility] Comment: Interpretive Data Percent cell count reference ranges are not reported, since discordance with absolute values may lead to misinterpretation of CBC data. Current Interpretive Data was last revised on 2017. Eosinophil pct 1.0 % [facility] Comment: Interpretive Data Percent cell count reference ranges are not reported, since discordance with absolute values may lead to misinterpretation of CBC data. Current Interpretive Data was last revised on 2017. Basophil pct 0.3 % [facility] Comment: Interpretive Data Percent cell count reference ranges are not reported, since discordance with absolute values may lead to misinterpretation of CBC data. Current Interpretive Data was last revised on 2017. Blood specimen (specimen) 09/01/2020 9:20 AM CDT 09/01/2020 9:31 AM CDT Nehemias Pedroza MD LAB BLOOD ORDERABLES Final Result Performing Organization Address City/[facility] Co de Phone Number [address] [place] [address] * Tryptase (09/01/2020 9:20 AM CDT) Tryptase Level 6.8 <11.5 ng/mL [facility] Comment: Test Performed by: [facility] [address] [place] [address] [employer] Operator: Domo Rutherford M.D. Ph.D.; CLIA# [id number] Blood specimen (specimen) 09/01/2020 9:20 AM CDT 09/01/2020 9:31 AM CDT Nehemias Pedroza MD LAB BLOOD ORDERABLES Final Result Performing Organization Address City/[facility]/ZIP Co de Phone Number [place] [id number] [facility] [place] [address] * Basic metabolic panel (09/01/2020 9:20 AM CDT) [facility] Sodium 139 135 - 145 mmol/L [facility] Potassium, pl 4.8 3.3 - 4.9 mmol/L [facility] Chloride 106 97 - 110 mmol/L [facility] CO2 27 22 - 32 mmol/L [facility] Anion gap 6 2 - 15 mmol/L [facility] BUN 16 8 - 25 mg/dL [facility] Creatinine 1.20 0.80 - 1.30 mg/dL [facility] Glucose 185 70 - 199 mg/dL [facility] Comment: Interpretive Data Fasting glucose >/= 126 mg/dl is diagnostic for diabetes. ?? Fasting is defined as no caloric intake for at least 8 hours. Fasting glucose between 100 mg/dl to 125 mg/dl is diagnostic of prediabetes. In a patient with classic symptoms of hyperglycemia or hyperglycemic crisis, a random glucose >/= 200 mg/dl is diagnostic for diabetes. In the absence of unequivocal hyperglycemia, results should be confirmed by repeat testing. The classification and Diagnosis of Diabetes Diabetes Care 2017;40 (Suppl. 1):S11. Current interpretive data was last revised 2017. Calcium 9.3 8.5 - 10.3 mg/dL [facility] Blood specimen (specimen) 09/01/2020 9:20 AM CDT 09/01/2020 9:31 AM CDT us Nehemias Pedroza MD LAB BLOOD ORDERABLES Final Result [facility] [address] [facility] [place] [address] * CBC with auto differential (09/01/2020 9:20 AM CDT) [facility] WBC 6.9 3.8 - 9.9 K/cumm [facility] Hgb 13.3 13.0 - 17.5 g/dL [facility] Hct 39.8 38.9 - 50.3 % [facility] Plt 187 150 - 400 K/cumm [facility] MPV 9.7 9.1 - 12.[address] [facility] RBC 4.30 4.30 - 5.80 M/cumm [facility] MCV 92.6 81.3 - 96.[address] [facility] MCH 30.9 27.1 - 33.[address] [facility] MCHC 33.4 32.3 - 35.7 g/dL [facility] RDW CV 12.3 11.1 - 14.9 % [facility] RDW SD 41.5 35.7 - 48.[address] [facility] NRBC abs 0.00 0.00 - 0.01 K/cumm [facility] Blood specimen (specimen) 09/01/2020 9:20 AM CDT 09/01/2020 9:31 AM CDT us Nehemias Pedroza MD LAB BLOOD ORDERABLES Final Result Performing Organization Address City/State/[facility] Co de Phone Number [facility] [address] [facility] [place] [address] * eGFR (09/01/2020 6:57 AM CDT) eGFR 68 mL/min/1.[address] [facility] Comment: Interpretive Data Reference Interval Normal ?>/= 90 mL/min/1.73m2 Mildly decreased* ? 60 - 89 mL/min/1.73m2 Mildly to moderately decreased ?45 - 59 mL/min/1.73m2 Moderately to severely decreased ??30 - 44 mL/min/1.73m2 Severely decreased ?15 - 29 mL/min/1.73m2 Kidney Failure ?< 15 ??mL/min/1.73m2 *Relative to young adult level Estimated glomerular filtration rate is determined by the CKD-EPI equation recommended by the National Kidney Foundation (KDIGO 2012 Clinical Practice Guideline for the Evaluation and Management of Chronic Kidney Disease. Kidney Intnl Suppl Mar 2012;3:1). The CKD-EPI equation should not be used for patients with unstable renal function and has not been validated in children and those over 70. Current interpretive data was last reviewed 2020 Blood specimen (specimen) 09/01/2020 6:57 AM CDT 09/01/2020 7:24 AM CDT Ye Walker MD LAB BLOOD ORDERABLES Final Result Performing Organization Address City/[facility] Co de Phone Number [address] [place] [address] * Ferritin (09/01/2020 6:57 AM CDT) [facility] Ferritin 114 30 - 400 ng/mL [facility] Blood specimen (specimen) 09/01/2020 6:57 AM CDT 09/01/2020 7:24 AM CDT us Nehemias Pedroza MD LAB BLOOD ORDERABLES Final Result Performing Organization Address [facility] de Phone Number [address] [address] * (ABNORMAL) CBC without differential (09/01/2020 6:57 AM CDT) [facility] WBC 6.9 3.8 - 9.9 K/cumm [facility] Hgb 13.0 13.0 - 17.5 g/dL [facility] Hct 38.2(L) 38.9 - 50.3 % [facility] Plt 197 150 - 400 K/cumm [facility] MPV 9.6 9.1 - 12.[address] [facility] RBC 4.19(L) 4.30 - 5.80 M/cumm [facility] MCV 91.2 81.3 - 96.[address] [facility] MCH 31.0 27.1 - 33.[address] [facility] MCHC 34.0 32.3 - 35.7 g/dL [facility] RDW CV 12.2 11.1 - 14.9 % [facility] RDW SD 40.5 35.7 - 48.[address] [facility] NRBC abs 0.00 0.00 - 0.01 K/cumm [facility] Blood specimen (specimen) 09/01/2020 6:57 AM CDT 09/01/2020 7:24 AM CDT Ye Walker MD LAB BLOOD ORDERABLES Final Result Performing Organization Address [facility] Co de Phone Number [address] [facility] [address] * Phosphorus (09/01/2020 6:57 AM CDT) [facility] Phosphorus, pl 3.7 2.3 - 4.5 mg/dL [facility] Blood specimen (specimen) 09/01/2020 6:57 AM CDT 09/01/2020 7:24 AM CDT Ye Walker MD LAB BLOOD ORDERABLES Final Result Performing Organization Address [facility] de Phone Number [address] [place] [address] * Magnesium (09/01/2020 6:57 AM CDT) [facility] Magnesium 2.1 1.4 - 2.5 mg/dL [facility] Blood specimen (specimen) 09/01/2020 6:57 AM CDT 09/01/2020 7:24 AM CDT Ye Walker MD LAB BLOOD ORDERABLES Final Result Performing Organization Address [facility] de Phone Number [address] [place] [address] * Basic metabolic panel (09/01/2020 6:57 AM CDT) [facility] Sodium 138 135 - 145 mmol/L [facility] Potassium, pl 4.6 3.3 - 4.9 mmol/L [facility] Comment:Delta - Results Revi ewed Chloride 107 97 - 110 mmol/L [facility] CO2 26 22 - 32 mmol/L [facility] Anion gap 5 2 - 15 mmol/L [facility] BUN 16 8 - 25 mg/dL [facility] Creatinine 1.20 0.80 - 1.30 mg/dL [facility] Glucose 99 70 - 199 mg/dL [facility] Comment: Delta - Results Reviewed Interpretive Data Fasting glucose >/= 126 mg/dl is diagnostic for diabetes. ?? Fasting is defined as no caloric intake for at least 8 hours. Fasting glucose between 100 mg/dl to 125 mg/dl is diagnostic of prediabetes. In a patient with classic symptoms of hyperglycemia or hyperglycemic crisis, a random glucose >/= 200 mg/dl is diagnostic for diabetes. In the absence of unequivocal hyperglycemia, results should be confirmed by repeat testing. The classification and Diagnosis of Diabetes Diabetes Care 2017;40 (Suppl. 1):S11. Current interpretive data was last revised 2017. Calcium 9.1 8.5 - 10.3 mg/dL [facility] Blood specimen (specimen) 09/01/2020 6:57 AM CDT 09/01/2020 7:24 AM CDT us Ye Walker MD LAB BLOOD ORDERABLES Final Result [facility] [address] [facility] [place] [address] * ECG 12 lead (08/31/2020 11:02 PM CDT) Pathologist [facility] Ventricular Rate EKG/Min 86 BPM [facility] Atrial Rate 86 BPM [facility] [place]-Interval (MSEC) 166 ms [facility] QRS-Interval (MSEC) 96 ms [facility] QT-Interval (MSEC) 378 ms [facility] QTc 452 ms [facility] P [place] 58 degrees [facility] R [place] 58 degrees [facility] [place] 56 degrees [facility] Diagnosis Normal sinus rhythm Normal ECG When compared with ECG of 20-APR-2020 13:31, T wave amplitude has decreased in Anterior leads [facility] 08/31/2020 11:0 2 PM CDT 09/02/2020 11:51 PM CDT us Erin BARBER ECG ORDERABLES Final Res ult [facility] * eGFR (08/31/2020 9:38 PM CDT) eGFR 56 mL/min/1.7 3 m2 [facility] DANIEL Comment: Interpretive Data Reference Interval Normal ?>/= 90 mL/min/1.73m2 Mildly decreased* ? 60 - 89 mL/min/1.73m2 Mildly to moderately decreased ?45 - 59 mL/min/1.73m2 Moderately to severely decreased ??30 - 44 mL/min/1.73m2 Severely decreased ?15 - 29 mL/min/1.73m2 Kidney Failure ?< 15 ??mL/min/1.73m2 *Relative to young adult level Estimated glomerular filtration rate is determined by the CKD-EPI equation recommended by the National Kidney Foundation (KDIGO 2012 Clinical Practice Guideline for the Evaluation and Management of Chronic Kidney Disease. Kidney Intnl Suppl Mar 2012;3:1). The CKD-EPI equation should not be used for patients with unstable renal function and has not been validated in children and those over 70. Current interpretive data was last reviewed 2020 Blood specimen (specimen) 08/31/2020 9:38 PM CDT 08/31/2020 9:41 PM CDT us Erin BARBER LAB BLOOD ORDERABLES Xiomara l Result [facility] [address] [facility] [place] [address] * (ABNORMAL) Manual Differential (08/31/2020 9:38 PM CDT) [facility] Differential Auto [facility] RBC morphology Consistent with RBC Indicies [facility] Poikilocytosis Slight(A) [facility] Platelet estimate Automated Count Confirmed [facility] Blood specimen (specimen) 08/31/2020 9:38 PM CDT 08/31/2020 9:41 PM CDT Erin BARBER LAB BLOOD ORDERABLES Xiomara l Result [facility] [address] [facility] [place] [address] * (ABNORMAL) Differential, auto (08/31/2020 9:38 PM CDT) [facility] Neutrophil abs 5.3 1.7 - 6.5 K/cumm [facility] Imm gran abs 0.0 0.0 - 0.1 K/cumm [facility] Lymphocyte abs 5.9(H) 0.8 - 3.3 K/cumm [facility] Monocyte abs 0.8 0.2 - 0.8 K/cumm [facility] Eosinophil abs 0.1 0.0 - 0.5 K/cumm [facility] Basophil abs 0.0 0.0 - 0.1 K/cumm [facility] Neutrophil pct 43.3 % [facility] Comment: Interpretive Data Percent cell count reference ranges are not reported, since discordance with absolute values may lead to misinterpretation of CBC data. Current Interpretive Data was last revised on 2017. Imm gran pct 0.3 % [facility] Comment: Interpretive Data Percent cell count reference ranges are not reported, since discordance with absolute values may lead to misinterpretation of CBC data. Current Interpretive Data was last revised on 2017. Lymphocyte pct 48.6 % [facility] Comment: Interpretive Data Percent cell count reference ranges are not reported, since discordance with absolute values may lead to misinterpretation of CBC data. Current Interpretive Data was last revised on 2017. Monocyte pct 6.6 % [facility] Comment: Interpretive Data Percent cell count reference ranges are not reported, since discordance with absolute values may lead to misinterpretation of CBC data. Current Interpretive Data was last revised on 2017. Eosinophil pct 1.0 % [facility] Comment: Interpretive Data Percent cell count reference ranges are not reported, since discordance with absolute values may lead to misinterpretation of CBC data. Current Interpretive Data was last revised on 2017. Basophil pct 0.2 % [facility] Comment: Interpretive Data Percent cell count reference ranges are not reported, since discordance with absolute values may lead to misinterpretation of CBC data. Current Interpretive Data was last revised on 2017. Blood specimen (specimen) 08/31/2020 9:38 PM CDT 08/31/2020 9:41 PM CDT Erin BARBER LAB BLOOD ORDERABLES Xiomara chino Result [facility] [address] [facility] [place] [address] * (ABNORMAL) Comprehensive metabolic panel (08/31/2020 9:38 PM CDT) Sodium 137 135 - 145 mmol/L [facility] Potassium, pl 2.8(L) 3.3 - 4.9 mmol/L [facility] Chloride 99 97 - 110 mmol/L [facility] CO2 23 22 - 32 mmol/L [facility] Anion gap 15 2 - 15 mmol/L [facility] BUN 17 8 - 25 mg/dL [facility] Creatinine 1.40(H) 0.80 - 1.30 mg/dL [facility] Glucose 204(H) 70 - 199 mg/dL [facility] Comment: Interpretive Data Fasting glucose >/= 126 mg/dl is diagnostic for diabetes. ?? Fasting is defined as no caloric intake for at least 8 hours. Fasting glucose between 100 mg/dl to 125 mg/dl is diagnostic of prediabetes. In a patient with classic symptoms of hyperglycemia or hyperglycemic crisis, a random glucose >/= 200 mg/dl is diagnostic for diabetes. In the absence of unequivocal hyperglycemia, results should be confirmed by repeat testing. The classification and Diagnosis of Diabetes Diabetes Care 2017;40 (Suppl. 1):S11. Current interpretive data was last revised 2017. Calcium 8.7 8.5 - 10.3 mg/dL [facility] Bilirubin, total 0.8 0.1 - 1.2 mg/dL [facility] Protein, pl 6.6 6.5 - 8.5 g/dL [facility] Albumin 4.1 3.5 - 5.0 g/dL [facility] Alk phos 53 40 - 130 Units/L [facility] ALT 19 7 - 55 Units/L [facility] AST 24 10 - 50 Units/L [facility] Comment:SLIGHTLY HEMOLYZED: Hemolysis interferes with the above test. Blood specimen (specimen) 08/31/2020 9:38 PM CDT 08/31/2020 9:41 PM CDT Erin BARBER LAB BLOOD ORDERABLES Xiomara chino Result [facility] [address] [facility] Department of Laboratories [place], [place] [id number] * (ABNORMAL) CBC with auto differential (08/31/2020 9:38 PM CDT) Pathologist [facility] WBC 12.2(H) 3.8 - 9.9 K/cumm [facility] Hgb 15.0 13.0 - 17.5 g/dL [facility] Hct 45.4 38.9 - 50.3 % [facility] Plt 284 150 - 400 K/cumm [facility] MPV 9.7 9.1 - 12.[address] [facility] RBC 4.94 4.30 - 5.80 M/cumm [facility] MCV 91.9 81.3 - 96.[address] [facility] MCH 30.4 27.1 - 33.[address] [facility] MCHC 33.0 32.3 - 35.7 g/dL [facility] RDW CV 12.2 11.1 - 14.9 % [facility] RDW SD 40.4 35.7 - 48.[address] [facility] NRBC abs 0.00 0.00 - 0.01 K/cumm 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 documented in this encounter Admitting Diagnoses Diagnosis 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 documented in this encounter Administered Medications Inactive Administered Medications - up to 3 most recent administrations Medication Order MAR Action Action Date Dose Rate Site diphenhydrAMINE (BENADRYL) injection 25 mg 25 mg, intravenous, Administer over 2 Minutes, Every 6 hours PRN, allergies, Starting on 09/01/20 at 0053 EPINEPHrine (ADRENALIN) injection 0.15 mg 0.15 mg, intramuscular, As needed, anaphylaxis, Starting on Thu09/01/20 at 0054, Indications: AnaphylaxisIndications:Anap hylaxis LORazepam (ATIVAN) injection 1 mg 1 mg, intravenous, Once, On Thu08/31/20 at 2129, For 1 dose, For IV administration, dilute with equal volume of 0.9% sodium chloride. Do not exceed a rate of 2 mg/minute Given 08/31/2020 9:34 PM CDT 1 mg potassium chloride 40 mEq/520 mL in sodium chloride 0.9% (premix) 40 mEq 40 mEq, intravenous, at 130 mL/hr, Administer over 4 Hours, Once, On Thu08/31/20 at 2330, For 1 dose, Indications: hypokalemiaIndications:hypo kalemia New Bag 08/31/2020 11:33 PM CDT 40 mEq 130 mL/hr potassium chloride ER (KLOR-CON) extended release tablet 40 mEq 40 mEq, oral, Once, On Thu08/31/20 at 2256, For 1 dose, Do not crush, chew, cut, dissolve, open or otherwise manipulate tablet/capsule. Given 08/31/2020 11:09 PM CDT 40 mEq sodium chloride 0.9% 0.9% infusion - ADS Override Pull Starting on 09/01/20 at 0046, For 1 dose, Created by cabinet override sodium chloride 0.9% bolus 1,000 mL 1,000 mL, intravenous, at 1,000 mL/hr, Administer over 1 Hours, Once, On 09/01/20 at 0115, For 1 dose New Bag 09/01/2020 1:03 AM CDT 1,000 mL 100 0 mL/hr sodium chloride 0.9% flush 0.5-20 mL 0.5-20 mL, intra-catheter, Every 8 hours scheduled, First dose on 09/01/20 at 0130, Flush volume based on line type and size. Given 09/01/2020 1:04 AM CDT 10 mL sodium chloride 0.9% flush 0.5-20 mL 0.5-20 mL, intra-catheter, Every 8 hours scheduled, First dose on 09/01/20 at 0130, Flush volume based on line type and size. Given 09/01/2020 1:04 AM CDT 10 mL sodium chloride 0.9% flush 0.5-20 mL 0.5-20 mL, intra-catheter, As needed, line care, Starting on 09/01/20 at 0050, Flush volume based on line type and size. Flush before and after each use. documented in this encounter Discontinued Medications Medication Sig Discontinue Reason Start Date End Da te arginine HCl, L-arginine, 1,000 mg tablet Take 1,000 mg by mouth daily 08/31/2020 [facility] red pine bark extract ([employer] RED PINE BK EXT, BULK,) 95 % powder Take 80 mg by mouth daily 08/31/2020 rOPINIRole (REQUIP) 2 mg tablet Take 3 mg by mouth daily 12/01/2018 08/31/2020 documented as of this encounter Active and Recently Administered Medications Times are shown in CDT. Scheduled Medication Order 08/30/2020 08/31/2020 09/01/2020 LORazepam (ATIVAN) injection 1 mg (COMPLETED) 1 mg, intravenous, Once, On Thu08/31/20 at 2129, For 1 dose, For IV administration, dilute with equal volume of 0.9% sodium chloride. Do not exceed a rate of 2 mg/minute 2133 (Given - Provider: Sissy Staples RN) potassium chloride 40 mEq/520 mL in sodium chloride 0.9% (premix) 40 mEq (COMPLETED) 40 mEq, intravenous, at 130 mL/hr, Administer over 4 Hours, Once, On Thu08/31/20 at 2330, For 1 dose, Indications: hypokalemia 2333 (New Bag - Provider: Sissy Staples RN) potassium chloride ER (KLOR-CON) extended release tablet 40 mEq (COMPLETED) 40 mEq, oral, Once, On Thu08/31/20 at 2256, For 1 dose, Do not crush, chew, cut, dissolve, open or otherwise manipulate tablet/capsule. 2309 (Given - Provider: Sissy Staples RN) sodium chloride 0.9% bolus 1,000 mL (COMPLETED) 1,000 mL, intravenous, at 1,000 mL/hr, Administer over 1 Hours, Once, On 09/01/20 at 0115, For 1 dose 0103 (New Bag - Provider: Josie Foreman RN) sodium chloride 0.9% flush 0.5-20 mL (CANCELED) 0.5-20 mL, intra-catheter, Every 8 hours scheduled, First dose on 09/01/20 at 0130, Flush volume based on line type and size. 0104 (Given - Provid er: Josie Foreman RN) sodium chloride 0.9% flush 0.5-20 mL(Linked Group 1) 0.5-20 mL, intra-catheter, Every 8 hours scheduled, First dose on 09/01/20 at 0130, Flush volume based on line type and size. 0104 (Given - Provid er: Josie Foreman RN)0546 (Not Given - Provider: Josie Foreman RN - Reason: IV Infusing)1308 (Not Given - Provider: Corina Trent RN - Reason: Loss of IV access - Comment: D/C HOME) PRN Medication Order 08/30/2020 08/31/2020 09/01/2020 acetaminophen (TYLENOL) tablet 650 mg 650 mg, oral, Every 4 hours PRN, 1st line for pain, fever, fever greater than 38.3 C, Starting on 09/01/20 at 0051, Indications: Fever, Pain diphenhydrAMINE (BENADRYL) injection 25 mg 25 mg, intravenous, Administer over 2 Minutes, Every 6 hours PRN, allergies, Starting on 09/01/20 at 0053 EPINEPHrine (ADRENALIN) injection 0.15 mg 0.15 mg, intramuscular, As needed, anaphylaxis, Starting on 09/01/20 at 0054, Indications: Anaphylaxis sodium chloride 0.9% flush 0.5-20 mL 0.5-20 mL, intra-catheter, As needed, line care, Starting on 09/01/20 at 0050, Flush volume based on line type and size. Flush before and after each use. sodium chloride 0.9% flush 0.5-20 mL(Linked Group 1) 0.5-20 mL, intra-catheter, As needed, line care, Starting on 09/01/20 at 0050, Flush volume based on line type and size. Flush before and after each use. Linked Groups Order Group 1: Saline lock IV (CANCELED) Routine, Once (Routine), On 09/01/20 at 0051, For 1 occurrence And sodium chloride 0.9% flush 0.5-20 mLJump to med 0.5-20 mL, intra-catheter, Every 8 hours scheduled, First dose on 09/01/20 at 0130, Flush volume based on line type and size. And sodium chloride 0.9% flush 0.5-20 mLJump to med 0.5-20 mL, intra-catheter, As needed, line care, Starting on 09/01/20 at 0050, Flush volume based on line type and size. Flush before and after each use. documented in this encounter Orders Medications Ordered That Abundio ht Not Have Been Administered Count Last Ordered Date First Ordered Date acetaminophen (TYLENOL) tablet 650 mg 1 diphenhydrAMINE (BENADRYL) injection 25 mg 1 09/01/2020 EPINEPHrine (ADRENALIN) injection 0.15 mg 1 09/01/2020 sodium chloride 0.9% flush 0.5-20 mL 2 08/08 Diet Count Last Ordered Date First Orde red Date ADULT DISCHARGE DIET 1 09/01/2020 Nursing Count Last Ordered Date First Orde red Date DISCHARGE ACTIVITY 1 09/01/2020 WEIGH PATIENT 1 09/01/2020 Admission Count Last Ordered Date First Orde red Date ADMIT TO INPATIENT 1 08/31/2020 Transfer Count Last Ordered Date First Orde red Date ED TO FLOOR BED REQUEST 1 08/31/2020 Discharge Count Last Ordered Date First Orde red Date DISCHARGE PATIENT 1 09/01/2020 CORE MEASURES Count Last Ordered Date First Ord ered Date REASON FOR NO VTE PROPHYLAXIS AT ADMISSION 1 09/01/2020 documented in this encounter Care Teams Math And Science Instructor Relationship Specialty Start Date End Date Edgar Mckeon MD PCP - General 05/04/17 documented as of this encounter
--- OUTSIDE RECORDS SUMMARY | 2024-02-23 15:05 | XMS_ITS | Encounter Summary ---
Author Organization [facility] Address [address] [place] [address] Care Team Providers Care Revenue Audit Clerk Name Role Phone Edgar Mckeon MD Primary Care Provider Reason for Visit * Reason Comments Follow-up Encounter Details Date Type Department Care Team (Late st Contact Info) Description 10/16/2021 1:45 PM CDT Office Visit [facility] Pulmonology [address] [facility] [address] [place] [address] Tuyet Umaña, PAVING CONTRACTOR [address] [facility] [address] [place] [address] NORMA (obstructive sleep apnea) (Primary Dx); Restless leg syndrome Social History Tobacco Use Types Packs/Day Years [...] on file 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 Gender Identity Not on file Sexual Orientation Not on file documented as of this encounter Last Filed Vital Signs Vital Sign Reading Time Taken Comments Blood Pressure 119/80 10/16/2021 1:27 PM CDT Pulse 116 10/16/2021 1:27 PM CDT Temperature - - Respiratory Rate 18 10/16/2021 1:27 PM CDT Oxygen Saturation 97% 10/16/2021 1:27 PM CDT Inhaled Oxygen Concentration - - Weight 108.6 kg (239 lb 6.4 oz) 10/16/2021 1:27 PM CDT Height 203.2 cm (6' 8 ) 10/16/2021 1:27 PM CDT Body Mass Index 26.3 10/16/2021 1:27 PM CDT documented in this encounter Ordered Prescriptions Prescription Sig Dispense Quantity Refills Last Filled Start Date End Date clonazePAM (KlonoPIN) 0.5 mg tabletIndications: Restless leg syndrome Take 1 tablet (0.5 mg total) by mouth nightly 30 tablet 1 10/16/2021 4 documented in this encounter Progress Notes * Tuyet Umaña, PAVING CONTRACTOR - 10/16/2021 1:45 PM CDT Images from the original note were not included. Patient ID: Héctor Pérez is a 55 y.o. male. HPI. Patient is a 55 y.o. male returns for follow-up of NORMA and restless legs syndrome. Patient continues to use no using his oral appliance. The patient states that he has not been sleeping well. Heis having trouble sleeping due to some personal stress.. He states that he will sleep for 2 hours and then wake up. He states that he will be up for a few hours. Then he will fall back to sleep. The patient continue to use 1 mg of Requip at 6:00 p.m. and 2 mg at bedtime. The patient states that his legs feel more restless during the day and seems to be coming more of a problem. Chief Complaint Patient presents with ??? Follow-up Current Medications: Outpatient Encounter Medications as of 10/16/2021 Medication Sig Dispense Refill ??? arginine HCl, L-arginine, 1,000 mg tablet Take 1,000 mg by mouth daily ??? aspirin 81 mg enteric coated tablet Take 81 mg by mouth daily ??? atorvastatin (LIPITOR) 40 mg tablet Take 1 tablet (40 mg total) by mouth daily 90 tablet 3 ??? baclofen (LIORESAL) 10 mg tablet Take 1 tablet (10 mg total) by mouth daily as needed for muscle spasms 90 tablet 1 ??? ergocalciferol, vitamin D2, 50 mcg (2,000 unit) tablet 2,000 Units ??? hydrocortisone 2.5 % cream Apply topically 2 (two) times a day as needed for irritation or rash30 g 2 ??? Lactobacillus acidophilus 10 billion cell capsule Take by mouth once ??? PARoxetine (PAXIL) 20 mg tablet TAKE 1 TABLET(20MG TOTAL) BY MOUTH EVERY MORNING 90 tablet 1 ??? traMADoL (ULTRAM) 50 mg tablet as needed ??? zinc-vit C-pyridoxine, vit B6, 12-60-0.5 mg lozenge 50 mg ??? clonazePAM (KlonoPIN) 0.5 mg tablet Take 1 tablet (0.5 mg total) by mouth nightly 30 tablet 1 ??? EPINEPHrine (ADRENALIN) 1 mg/mL (1 mL) injection Inject 0.15 mL (0.15 mg total) into the muscleas instructed as needed for anaphylaxis 1 mL 0 ??? rOPINIRole (REQUIP) 1 mg tablet Take 1 tablet (1 mg total) by mouth daily with dinner AND 2 tablets (2 mg total) nightly. 270 tablet 3 No facility-administered encounter medications on file as of 10/16/2021. Review of Systems Constitutional: Negative for fever. HENT: Negative for tinnitus. Eyes: Negative for visual disturbance. Respiratory: Negative for cough, shortness of breath and wheezing. Cardiovascular: Negative for chest pain. Gastrointestinal: Negative for diarrhea, nausea and vomiting. Skin: Negative for rash. Neurological: Negative for dizziness. BP 119/80 (BP Location: Left arm, Patient Position: Sitting) Pulse 116 Resp 18 Ht 203.2 cm (6' 8 ) Wt 108.6 kg (239 lb 6.4 oz) SpO2 97% BMI 26.30 kg/m?? Physical Exam Constitutional: General: He is not in acute distress. HENT: Mouth/Throat: Pharynx: No oropharyngeal exudate. Eyes: Pupils: Pupils are equal, round, and reactive to light. Cardiovascular: Rate and Rhythm: Normal rate and regular rhythm. Pulmonary: Effort: Pulmonary effort is normal. Breath sounds: Normal breath sounds. No wheezing. Abdominal: Palpations: Abdomen is soft. Musculoskeletal: Cervical back: Normal range of motion. Imaging: No results found. Assessment & Plan: Diagnoses and all orders for this visit: NORMA (obstructive sleep apnea) (Primary) Assessment & Plan: The patient is currently not using an oral appliance to treat the obstructive sleep apnea. Restless leg syndrome Assessment & Plan: I have refilled his Requip to use 1 mg at 6:00 p.m. and 2 mg at bedtime. Due to the patient having more restlessness in his legs I will add clonazepam 0.5 mg p.o. Q bedtime. Orders: - clonazePAM (KlonoPIN) 0.5 mg tablet; Take 1 tablet (0.5 mg total) by mouth nightly Return in about 6 weeks (around 11/27/2021). Tuyet Umaña NP Cosigned by Trevor Maldonado MD at 10/16/2021 2:52 PM CDT documented in this encounter Miscellaneous Notes * Assessment & Plan Note - Tuyet Umaña NP - 10/16/2021 1:59 PM CDT Associated Problem(s): NORMA (obstructive sleep apnea) The patient is currently not using an oral appliance to treat the obstructive sleep apnea. * Assessment & Plan Note - Tuyet Umaña NP - 10/16/2021 1:59 PM CDT Associated Problem(s): Restless leg syndrome I have refilled his Requip to use 1 mg at 6:00 p.m. and 2 mg at bedtime. Due to the patient having more restlessness in his legs I will add clonazepam 0.5 mg p.o. Q bedtime. documented in this encounter Plan of Treatment Not on file documented as of this encounter Visit Diagnoses Diagnosis NORMA (obstructive sleep apnea)- Primary Obstructive sleep apnea (adult) (pediatric) Restless leg syndrome Restless legs syndrome (RLS) documented in this encounter Care Teams Revenue Audit Clerk Relationship Specialty Start Date End Date Edgar Mckeon MD PCP - General 05/04/17 documented as of this encounter
--- OUTSIDE RECORDS SUMMARY | 2024-02-23 15:05 | XMS_ITS | Encounter Summary ---
Author Organization [facility] Address [address] [place] [address] Care Team Providers Care Camp Assistant Name Role Phone Edgar Mckeon MD Primary Care Provider [phone] Reason for Referral * Consultation (Routine) - Closed Specialty Diagnoses / Procedures Referred By Contac t Referred To Contact Gastroenterology Diagnoses Colon cancer screening Edgar Mckeon MD [address] [place] [address] Phone: tel: fax: Maggi Miller MD [address] [address] Phone: tel: fax: Referral ID Status Reason Start Date Expiration Date V isits Requested Visits Authorized [id number] Closed Specialty Services Required 04/15/2023 05/14/2024 1 1 Question Answer Process Instructions: THE AMBULATORY REFERRAL TO GASTROENTEROLOGY IS NOT AN ORDER FOR A PROCEDURE (I.E. EGD, COLONOSCOPY.) USE THE DIRECT SCHEDULING CASE REQUEST ORDER (GI50) IF THE PATIENT REQUIRES A PROCEDURE TO BE PERFORMED. Please select the performing region: External Order [171] To provider: MAGGI MILLER [[id number]] # of visits: 1 TY PROBATION OFFICER Reason for Visit * Reason Onset Date Comments Recommendation Request 04/15/2023 Encounter Details Date Type Department Care Team (Late st Contact Info) Description 04/15/2023 Telephone [facility] Family Medicine [address] [place], [place] [address] [address] Edgra Mckeon MD [address] [facility] [address] [facility] [address] [place] [address] Recommendation Request Social History Tobacco Use Types Packs/Day Years [...] on file 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 Miller. See [employer] message. TY PROBATION OFFICER * Telephone Encounter - Freddie Stubbs - 04/15/2023 1:31 PM CST Krista from Dr Vincent office called back regarding colonoscopy. Pt was due 5 years ago and it's been 6years. TY PROBATION OFFICER * Telephone Encounter - Isrrael Osman RN - 04/15/2023 12:46 PM DEPUTY PROBATION OFFICER Patient's last colonoscopy was 2017. TCB for Dr. Miller's office to find out repeat date. TY PROBATION OFFICER * Telephone Encounter - Sherine Jimenez - 04/15/2023 11:39 AM CST Recommendation Request Note: This request is for a specialty recommendation, not an insurance referral. Specialty: GI Why does the patient want to go to this specialist? Colonoscopy Additional Comments/Concerns: Patient stated he is past due. Does message need to be routed? Yes-Action Needed TY PROBATION OFFICER documented in this encounter Plan of Treatment Scheduled Referrals Name Type Priority Associated Diagnoses Order Schedule Ambulatory referral to Gastroenterology Outpatient Referral Routine Colon cancer screening Expected: 04/29/2023 (Approximate), Expires: 04/15/2024 documented as of this encounter Visit Diagnoses Diagnosis Colon cancer screening- Primary Special screening for malignant neoplasms, colon documented in this encounter Care Teams Camp Assistant Relationship Specialty Start Date End Date Edgar Mckeon MD PCP - General 05/04/17 documented as of this encounter
--- OUTSIDE RECORDS SUMMARY | 2024-02-23 15:05 | XMS_ITS | Encounter Summary ---
Author Organization [facility] Address [address] [place] [address] Care Team Providers Care Mine Development Engineer Name Role Phone Edgar Mckeon MD Primary Care Provider [phone] Reason for Visit * Reason Onset Date Comments Additional Services Or Orders 07/01/2022 Encounter Details Date Type Department Care Team (Late st Contact Info) Description 07/01/2022 Telephone [facility] Family Medicine [address] [place] [address] Edgar Mckeon MD [address] [place] [address] [address] [place] [address] Additional Services Or Orders Social History Tobacco Use Types Packs/Day Years [...] on file 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 Called [facility] for official copy of lab results and they are sending them to us per fax and EMR to make sure we are getting them. Attempted to call patient and VM full. Will send in [employer] message. * Telephone Encounter - Alea Dawson MA - 07/01/2022 10:23 AM CDT Additional Services or Orders Type of Service Requested: Labs Reason for Request (e.g. condition/symptom, date of COVID exposure if applicable): wanting PSA Details Regarding Additional Services (e.g. type of home health, type of equipment, type of test, etc.): PSA Where will services be performed? (if outside of the practice, facility name, address, phone/fax offacility): [facility] [address] [facility] [place] [address] Blood draw code: [id number] Caller's Callback #: [phone] Additional Comments: Patient had blood work drawn (05/29 lab orders) but states that [facility] did not have all 6 lab orders. He asked if all of the 05/29 lab orders could be re-faxed & add PSA to the list. He asked for a call back once resent. Does message need to be routed?Yes-Action Needed documented in this encounter Plan of Treatment Not on file documented as of this encounter Visit Diagnoses Not on filedocumented in this encounter Care Teams Mine Development Engineer Relationship Specialty Start Date End Date Edgar Mckeon MD PCP - General 05/04/17 documented as of this encounter
--- OUTSIDE RECORDS SUMMARY | 2024-02-23 15:05 | XMS_ITS | Encounter Summary ---
Author Organization [facility] Address [address] [facility] [address] [place] [address] Care Team Providers Care Oracle Ebs Architect Name Role Phone Edgar Mckeon MD Primary Care Provider [phone] Reason for Visit * Reason Comments Follow-up F/u labs Encounter Details Date Type Department Care Team (Late st Contact Info) Description 05/29/2022 3:30 PM CDT Office Visit [facility] Primary Care at [address] [phone] Edgar Mckeon MD [address] [facility] [address] [address] RODO (generalized anxiety disorder) (Primary Dx); Short-term memory loss; Mixed hyperlipidemia; Fatigue, unspecified type; Restless leg syndrome; Chronic insomnia Social History Tobacco Use Types Packs/Day Years [...] on file 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 Gender Identity Not on file Sexual Orientation Not on file documented as of this encounter Last Filed Vital Signs Vital Sign Reading Time Taken Comments Blood Pressure 138/84 05/29/2022 4:10 PM CDT Pulse 72 05/29/2022 4:10 PM CDT Temperature 36.1 ??C (96.9 ??F) 05/29/2022 4:10 PM CD T Respiratory Rate 18 05/29/2022 4:10 PM CDT Oxygen Saturation 98% 05/29/2022 4:10 PM CDT Inhaled Oxygen Concentration - - Weight 110.2 kg (243 lb) 05/29/2022 4:10 PM CDT Height 203.2 cm (6' 8 ) 05/29/2022 4:10 PM CDT Body Mass Index 26.69 05/29/2022 4:10 PM CDT documented in this encounter Progress Notes * Edgar Mckeon MD - 05/29/2022 3:30 PM CDT Images from the original note were not included. Subjective/Objective Patient ID: Héctor Pérez is a 56 y.o. male. Chief Complaint Follow-up (F/u labs) 56-year-old male. Presents with routine follow-up. Not sure breath or chest pain. Weight stable. Nonsmoker. History of a TIA. Allergies as of 05/29/2022 - Reviewed 05/29/2022 Allergen Reaction Noted Bee sting [venom-honey bee] Hives 08/31/2020 Outpatient Encounter Medications as of 05/29/2022 Medication Sig Dispense Refill arginine HCl, L-arginine, 1,000 mg tablet Take 1,000 mg by mouth daily ascorbic acid (vitamin C) 1,000 mg tablet Take 1,000 mg by mouth daily aspirin 81 mg enteric coated tablet Take 81 mg by mouth daily atorvastatin (LIPITOR) 40 mg tablet Take 1 tablet (40 mg total) by mouth daily 30 tablet 1 baclofen (LIORESAL) 10 mg tablet Take 1 tablet (10 mg total) by mouth daily as needed for muscle spasms 90 tablet 1 clonazePAM (KlonoPIN) 0.5 mg tablet Take 1 tablet (0.5 mg total) by mouth nightly 30 tablet 1 ergocalciferol, vitamin D2, 50 mcg (2,000 unit) tablet 2,000 Units NON FORMULARY, FOR CLINIC ADMINISTERED MEDICATIONS ONLY, (not in database) 80 each once pycnogenol PARoxetine (PAXIL) 20 mg tablet TAKE 1 TABLET(20 MG) BY MOUTH EVERY MORNING 90 tablet 1 rOPINIRole (REQUIP) 1 mg tablet TAKE 1 TABLET BY MOUTH DAILY WITH DINNER AND 2 TABLETS BY MOUTH NIGHTLY. 270 tablet 3 zinc-vit C-pyridoxine, vit B6, 12-60-0.5 mg lozenge 50 mg EPINEPHrine (ADRENALIN) 1 mg/mL (1 mL) injection Inject 0.15 mL (0.15 mg total) into the muscle as instructed as needed for anaphylaxis 1 mL 0 Lactobacillus acidophilus 10 billion cell capsule Take by mouth once (Patient not taking: Reported on 05/29/2022) traMADoL (ULTRAM) 50 mg tablet as needed (Patient not taking: Reported on 05/29/2022) [DISCONTINUED] hydrocortisone 2.5 % cream Apply topically 2 (two) times a day as needed for irritation or rash 30 g 2 No facility-administered encounter medications on file as of 05/29/2022. Past Medical History: Diagnosis Date Bulging lumbar [...] Types: Tramadol Sexual activity: None Alcohol Use: Not on file Review of Systems Constitutional: Positive for fatigue and unexpected weight change. Negative for fever. Respiratory: Negative for cough and shortness of breath. Cardiovascular: Negative for chest pain and leg swelling. Gastrointestinal: Negative for abdominal pain and nausea. Musculoskeletal: Negative for back pain and neck pain. Neurological: Negative for seizures and headaches. Psychiatric/Behavioral: Negative for confusion. The patient is not nervous/anxious. Vitals: 05/29/22 1610 BP: 138/84 BP Location: Left arm Patient Position: Sitting Pulse: 72 Resp: 18 Temp: 36.1 ??C (96.9 ??F) TempSrc: Temporal SpO2: 98% Weight: 110.2 kg (243 lb) Height: 203.2 cm (6' 8 ) [...] time. Psychiatric: Speech: Speech normal. PHQ Screening Over the past 2 weeks, how often have you been bothered by any of the following problems? Little Interest or Pleasure in Doing Things: Not at all Feeling Down, Depressed, or Hopeless: Not at all PHQ-2 Total Score (If total score is 3 or more points, staff should administer the PHQ-9): 0 Assessment/Plan Assessment and Plan Diagnoses and all orders for this visit: RODO (generalized anxiety disorder) (Primary) - on a SSRI. Continue present management Short-term memory loss - currently stable will follow. Has had an MRI in the past Mixed hyperlipidemia - CBC with auto differential; Future - Comprehensive metabolic panel; Future - Lipid panel; Future - CT Coronary Calcium Scoring; Future - labs with the CT calcium score ordered Fatigue, unspecified type - Testosterone; Future - Vitamin B12; Future - TSH reflex to free T4; Future - order labs as stated above. Restless leg syndrome - continue meds Chronic insomnia - continue meds. Diet exercise. Sleep hygiene reviewed. Orders Placed This Encounter CT Coronary Calcium Scoring Standing Status: Future Standing Expiration Date: 05/30/2023 Order Specific Question: Where should this order be performed? Answer: External Order [171] CBC with auto differential Standing Status: Future Number of Occurrences: 1 Standing Expiration Date: 05/30/2023 Comprehensive metabolic panel Standing Status: Future Number of Occurrences: 1 Standing Expiration Date: 05/30/2023 Lipid panel Standing Status: Future Number of Occurrences: 1 Standing Expiration Date: 05/30/2023 Testosterone Standing Status: Future Number of Occurrences: 1 Standing Expiration Date: 05/30/2023 Vitamin B12 Standing Status: Future Number of Occurrences: 1 Standing Expiration Date: 05/30/2023 TSH reflex to free T4 Standing Status: Future Number of Occurrences: 1 Standing Expiration Date: 05/30/2023 Specific topics reviewed: drugs, ETOH, and tobacco, importance of regular dental care, importance of regular exercise, importance of varied diet, limit TV, media violence, minimize junk food, seat belts, and testicular self-exam. Edgar Mckeon MD documented in this encounter Plan of Treatment Scheduled Orders Name Type Priority Associated Diagnoses Orde r Schedule CBC with auto differential Lab Routine Mixed hyperlipidemia Expected: 05/29/2022, Expires: 05/30/2023 Comprehensive metabolic panel Lab Routine Mixed hyperlipidemia Expected: 05/29/2022, Expires: 05/30/2023 Lipid panel Lab Routine Mixed hyperlipidemia Expected: 05/29/2022, Expires: 05/30/2023 Testosterone Lab Routine Fatigue, unspecified type Expected: 05/29/2022, Expires: 05/30/2023 documented as of this encounter Procedures Procedure Name Priority Date/Time Associated Diagnosis Comments THYROID FUNCTION CASCADE Routine 07/01/2022 Fatigue, unspecified type VITAMIN B12 Routine 07/01/2022 Fatigue, unspecified type documented in this encounter Results * TSH reflex to free T4 (07/01/2022) Blood 07/01/2022 Impressions [facility] - 07/01/2022 1.49 ?? Range 0.40-4.50 us Edgar Mckeon MD LAB BLOOD ORDERABLES Final Re sult [facility] * Vitamin B12 (07/01/2022) SCRIBED Vitamin B12 279 200 - 1,100 [facility] Blood 07/01/2022 us Edgar Mckeon MD LAB BLOOD ORDERABLES Final Re sult [facility] documented in this encounter Visit Diagnoses Diagnosis RODO (generalized anxiety disorder)- Primary Generalized anxiety disorder Short-term memory loss Memory loss Mixed hyperlipidemia Fatigue, unspecified type Restless leg syndrome Restless legs syndrome (RLS) Chronic insomnia Insomnia, unspecified documented in this encounter Discontinued Medications Medication Sig Discontinue Reason Start Date End Da te hydrocortisone 2.5 % cream Apply topically 2 (two) times a day as needed for irritation or rash Therapy completed 05/14/2021 05/29/2022 documented as of this encounter Historical Medications * This list may reflect changes made after this encounter. ascorbic acid (vitamin C) 1,000 mg tablet Take 1 tablet (1,000 mg total) by mouth daily NON FORMULARY, FOR CLINIC ADMINISTERED MEDICATIONS ONLY, (not in database) 80 each once pycnogenol added in this encounter Care Teams Oracle Ebs Architect Relationship Specialty Start Date End Date Edgar Mckeon MD PCP - General 05/04/17 documented as of this encounter
--- OUTSIDE RECORDS SUMMARY | 2024-02-23 15:05 | XMS_ITS | Encounter Summary ---
Author Organization [facility] Address [address] [facility] [address] [place] [address] Care Team Providers Care Textile Screen Maker Name Role Phone Edgar Mckeon MD Primary Care Provider [phone] Reason for Visit * Reason Onset Date Comments Test request 04/24/2020 Echo Encounter Details Date Type Department Care Team (Late st Contact Info) Description 04/24/2020 Telephone [facility] Family Medicine [address] [facility] [address] [place] [address] Edgar Mckeon MD [address] [place] [address] [address] [place] [address] Test request (Echo) Social History Tobacco Use Types Packs/Day Years [...] on file 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 Pt had a virtual visit on 04/20/2020 and then he went to the hospital and was discharged on 04/21/2020. Dr. Mckeon, is this true? Should we order an echo for patient? Pt would like a call back when this is ordered so he can call scheduling and get this scheduled right away. R ECONOMICS TEACHER documented in this encounter Plan of Treatment Not on file documented as of this encounter Visit Diagnoses Not on filedocumented in this encounter Care Teams Textile Screen Maker Relationship Specialty Start Date End Date Edgar Mckeon MD PCP - General 05/04/17 documented as of this encounter
--- OUTSIDE RECORDS SUMMARY | 2024-02-23 15:05 | XMS_ITS | Encounter Summary ---
Author Organization [facility] Address [address] [facility] [address] [place] [address] Care Team Providers Care Braille And Talking Books Clerk Name Role Phone Edgar Mckeon MD Primary Care Provider [phone] Encounter Details Date Type Department Care Team (Late st Contact Info) Description 06/30/2020 Orders Only [facility] [address] [place] [address] Edgar Mckeon MD [address] [facility] [address] [address] Social History Tobacco Use Types Packs/Day Years [...] on file 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
--- OUTSIDE RECORDS SUMMARY | 2024-02-23 15:05 | XMS_ITS | Encounter Summary ---
Author Organization [facility] Address [address] [facility] [address] [place] [address] Care Team Providers Care Heddler Name Role Phone Edgar Mckeon MD Primary Care Provider [phone] Reason for Visit * Reason Onset Date Comments Medical Question/Miscellaneous 09/04/2022 Encounter Details Date Type Department Care Team (Late st Contact Info) Description 09/04/2022 Telephone [facility] Family Medicine [address] [facility] [address] [place] [address] Edgar Mckeon MD [address] [place] [address] Medical Question/Miscellaneous Social History Tobacco Use [...] on file 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 CS updated his address. Please follow up with patient if necessary. Caller???s Call back #: [phone] Does message need to be routed? Yes-FYI Only documented in this encounter Plan of Treatment Not on file documented as of this encounter Visit Diagnoses Not on filedocumented in this encounter Care Teams Heddler Relationship Specialty Start Date End Date Edgar Mckeon MD PCP - General 05/04/17 documented as of this encounter
--- OUTSIDE RECORDS SUMMARY | 2024-02-23 15:05 | XMS_ITS | Encounter Summary ---
Author Organization [facility] Address [address] [facility] [address] [place] [address] Care Team Providers Care Antichecking Iron Worker Name Role Phone Edgar Mckeon MD Primary Care Provider [phone] Reason for Visit * Reason Onset Date Comments Medication Request 08/25/2022 Encounter Details Date Type Department Care Team (Late st Contact Info) Description 08/25/2022 Telephone [facility] Family Medicine [address] [facility] [address] [place] [address] Edgar Mckeon MD [address] [place] [address] [address] [place] [address] Medication Request Social History Tobacco Use Types Packs/Day [...] on file 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 Patient is wanting to know if provider is okay with doubling his dosage If needed, Pharmacy(s) medication(s) should be sent to: [id number] - [place] - [address] , [place] [address] Caller???s Callback #: [phone] Additional Comments: Pt didn't specify why he needed an increase Does message need to be routed? Yes-Action Needed documented in this encounter Plan of Treatment Not on file documented as of this encounter Visit Diagnoses Not on filedocumented in this encounter Care Teams Antichecking Iron Worker Relationship Specialty Start Date End Date Edgar Mckeon MD PCP - General 05/04/17 documented as of this encounter
--- OUTSIDE RECORDS SUMMARY | 2024-02-23 15:05 | XMS_ITS | Encounter Summary ---
Author Organization [facility] Address [address] [facility] [address] [place] [address] Care Team Providers Care Data Center Consultant Name Role Phone Edgar Mckeon MD Primary Care Provider [phone] Reason for Visit * Reason Comments Insect Bite Pt had a tick bite i n the private area on Thursday. 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 Gender Identity Not on file Sexual Orientation Not on file documented as of this encounter Last Filed Vital Signs Vital Sign Reading Time Taken Comments Blood Pressure - - Pulse - - Temperature - - Respiratory Rate - - Oxygen Saturation - - Inhaled Oxygen Concentration - - Weight 104.3 kg (230 lb) 05/14/2021 1:12 PM MOTOR GENERATOR SET OPERATOR Height 203.2 cm (6' 8 ) 05/14/2021 1:12 PM MOTOR GENERATOR SET OPERATOR Body Mass Index 25.27 05/14/2021 1:12 PM MOTOR GENERATOR SET OPERATOR documented in this encounter Ordered Prescriptions Prescription Sig Dispense Quantity Refills Last Filled Start Date End Date hydrocortisone 2.5 % cream Apply topically 2 (two) times a day as needed for irritation or rash 30 g 2 05/14/2021 3 documented in this encounter Progress Notes * Edgar Mckeon MD - 05/14/2021 1:00 PM CST Images from the original note were not included. Subjective/Objective Patient ID: Héctor Pérez is a 55 y.o. male. This was a telemedicine visit with Héctor Pérez alone which took place via real-time video connection with [employer]. During the visit, I was located in the office and the patient was located at home in the [facility]. The patient visit started at 2:00 and ended at 2:30 The patient has been informed that the visit may not be secure and acknowledged the information. I have explained the option of participating in a telephone or video visit during the COVID-19 public health emergency to the patient. After being given an opportunity to ask questions about and discuss this type of visit, the patient verbally consented to proceeding with the telephone/video visit.The patient understands that this service replaces an office visit and they may be billed and/or responsible for any applicable copayments. Chief Complaint Insect Bite (Pt had a tick bite in the private area on Thursday. ) Tick bite groin, itching mainly around the area no fever. No body aches no joint aches no other rashes. Urinating normal bowels are normal no shortness of breath or chest pain. Insect Bite Associated symptoms include a rash. Pertinent negatives include no abdominal pain, chest pain, coughing, fatigue, fever, headaches, nausea or neck pain. Current Outpatient Medications Medication Sig Dispense Refill ??? arginine HCl, [...] needed for anaphylaxis 1 mL 0 ??? ergocalciferol, vitamin D2, 50 mcg (2,000 unit) tablet 2,000 Units ??? Lactobacillus acidophilus 10 billion cell capsule Take by mouth once ??? PARoxetine (PAXIL) 20 mg tablet TAKE 1 TABLET(20MG TOTAL) BY MOUTH EVERY MORNING 90 tablet 1 ??? rOPINIRole (REQUIP) 1 mg tablet Take 1 tablet (1 mg total) by mouth daily with dinner AND 2 tablets (2 mg total) nightly. 270 tablet 3 ??? traMADoL (ULTRAM) 50 mg tablet as needed ??? zinc-vit C-pyridoxine, vit B6, 12-60-0.5 mg lozenge 50 mg ??? hydrocortisone 2.5 % cream Apply topically 2 (two) times a day as needed for irritation or rash30 g 2 No current facility-administered medications for this visit. Review of Systems Constitutional: Negative for fatigue and fever. Respiratory: Negative for cough and shortness of breath. Cardiovascular: Negative for chest pain and leg swelling. Gastrointestinal: Negative for abdominal pain and nausea. Musculoskeletal: Negative for back pain and neck pain. Skin: Positive for rash. Neurological: Negative for seizures and headaches. Psychiatric/Behavioral: Negative for confusion. The patient is not nervous/anxious. Vitals Ht 203.2 cm (6' 8 ) Wt 104.3 kg (230 lb) BMI 25.27 kg/m?? Physical Exam Awake alert o times 3 Assessment/Plan Diagnoses and all orders for this visit: Nonvenomous insect bite of groin without infection, initial encounter (S30.861A, W57.XXXA) (Primary) - soap water to clean - feels fine - no drainage - no fever - good po - hytone cream BID - follow - call if worsens Orders Placed This Encounter ??? hydrocortisone 2.5 % cream Sig: Apply topically 2 (two) times a day as needed for irritation or rash Dispense: 30 g Refill: 2 documented in this encounter Plan of Treatment Not on file documented as of this encounter Visit Diagnoses Diagnosis Nonvenomous insect bite of groin without infection, initial encounter- Primary documented in this encounter Historical Medications * This list may reflect changes made after this encounter. Lactobacillus acidophilus 10 billion cell capsule Take by mouth once 06/01/2023 traMADoL (ULTRAM) 50 mg tablet as needed 06/01/2023 added in this encounter Care Teams Data Center Consultant Relationship Specialty Start Date End Date Edgar Mckeon MD PCP - General 05/04/17 documented as of this encounter
--- OUTSIDE RECORDS SUMMARY | 2024-02-23 15:05 | XMS_ITS | Encounter Summary ---
Author Organization [facility] Address [address] [facility] [address] [place] [address] Care Team Providers Care Senior Scientist Name Role Phone Edgar Mckeon MD Primary Care Provider [phone] Reason for Visit * Reason Comments Annual Exam Encounter Details Date Type Department Care Team (Late st Contact Info) Description 01/15/2021 8:45 AM MOTOR VEHICLE TECHNICIAN Office Visit [facility] Family Medicine [address] [place] [address] Edgar Mckeon MD [address] [place] [address] [address] [place] [address] Annual physical exam (Primary Dx) Social History Tobacco Use Types [...] file Legal Sex Male 8:16 AM MOTOR VEHICLE TECHNICIAN Gender Identity Not on file Sexual Orientation Not on file documented as of this encounter Last Filed Vital Signs Vital Sign Reading Time Taken Comments Blood Pressure 118/80 01/15/2021 8:41 AM MOTOR VEHICLE TECHNICIAN Pulse 87 01/15/2021 8:41 AM MOTOR VEHICLE TECHNICIAN Temperature 36.5 ??C (97.7 ??F) 01/15/2021 8:41 AM CS T Respiratory Rate 18 01/15/2021 8:41 AM MOTOR VEHICLE TECHNICIAN Oxygen Saturation 96% 01/15/2021 8:41 AM MOTOR VEHICLE TECHNICIAN Inhaled Oxygen Concentration - - Weight 111.9 kg (246 lb 9.6 oz) 01/15/2021 8:41 AM MOTOR VEHICLE TECHNICIAN Height 203.2 cm (6' 8 ) 01/15/2021 8:41 AM MOTOR VEHICLE TECHNICIAN Body Mass Index 27.09 01/15/2021 8:41 AM MOTOR VEHICLE TECHNICIAN documented in this encounter Ordered Prescriptions Prescription Sig Dispense Quantity Refills Last Filled Start Date End Date atorvastatin (LIPITOR) 40 mg tablet Take 1 tablet (40 mg total) by mouth daily 90 tablet 3 01/15/2021 05/05/2022 documented in this encounter Progress Notes * Edgar Mckeon MD - 01/15/2021 8:45 AM CST Images from the original note were not included. Subjective/Objective Patient ID: Héctor Pérez is a 55 y.o. male. Chief Complaint Annual Exam [age] year old male. Acute anaphylactic reaction to a insect sting. Has EpiPen On meds Speech resolved BMI 27 Allergies as of 01/15/2021 - Reviewed 01/15/2021 Allergen Reaction Noted ??? Bee sting [venom-honey bee] Hives 08/31/2020 Outpatient Encounter Medications as of 01/15/2021 Medication Sig Dispense Refill ??? arginine HCl, L-arginine, 1,000 mg tablet Take 1,000 mg by mouth daily ??? aspirin (Aspir-Low) 81 mg enteric coated tablet Take 81 [...] mcg (2,000 unit) tablet 2,000 Units ??? PARoxetine (PAXIL) 20 mg tablet Take 20 mg by mouth daily ??? zinc-vit C-pyridoxine, vit B6, 12-60-0.5 mg lozenge 50 mg ??? [DISCONTINUED] atorvastatin (LIPITOR) 40 mg tablet Take 1 tablet (40 mg total) by mouth daily 90 tablet 3 ??? EPINEPHrine (ADRENALIN) 1 mg/mL (1 mL) injection Inject 0.15 mL (0.15 mg total) into the muscleas instructed as needed for anaphylaxis 1 mL 0 ??? rOPINIRole (REQUIP) 1 mg tablet Take 1 tablet (1 mg total) by mouth daily with dinner AND 2 tablets (2 mg total) nightly. 270 tablet 3 ??? [DISCONTINUED] PARoxetine (PAXIL) 20 mg tablet Take 1 tablet (20 mg total) by mouth every morning 90 tablet 3 No facility-administered encounter medications on file as of 01/15/2021. Past Medical History: Diagnosis Date ??? Bulging [...] No Known Problems Paternal Grandfather Social History Socioeconomic History ??? Marital status: Spouse name: Not on file ??? Number of children: Not on file ??? Years of education: Not on file ??? Highest education level: Not on file Occupational History ??? Not on file Tobacco Use ??? Smoking status: Never Smoker ??? Smokeless tobacco: Never Used Substance and Sexual Activity ??? Alcohol use: Yes Comment: drinks a couple times a week, wine or beer ??? Drug use: Never ??? Sexual activity: Not on file Other Topics Concern ??? Not on file Social History Narrative ??? Not on file Social Determinants of Health Financial Resource Strain: Not on file Food Insecurity: Not on file Transportation Needs: Not on file Physical Activity: Not on file Stress: Not on file Social Connections: Not on file Intimate Partner Violence: Not on file Housing Stability: Not on file Review of Systems Constitutional: Negative for fatigue and fever. Respiratory: Negative for cough and shortness of breath. Cardiovascular: Negative for chest pain and leg swelling. Gastrointestinal: Negative for abdominal pain and nausea. Musculoskeletal: Negative for back pain and neck pain. Neurological: Negative for seizures and headaches. Psychiatric/Behavioral: Negative for confusion. The patient is not nervous/anxious. Vitals: 01/15/21 0841 BP: 118/80 BP Location: Left arm Patient Position: Sitting Pulse: 87 Resp: 18 Temp: 36.5 ??C (97.7 ??F) TempSrc: Transdermal SpO2: 96% Weight: 111.9 kg (246 lb 9.6 oz) Height: 203.2 cm (6' 8 ) Physical [...] place, and time. Psychiatric: Speech: Speech normal. Exam performed clothed PHQ Screening No exam data present Assessment/Plan Diagnoses and all orders for this visit: Annual physical exam (Primary) - 55-year-old male. Yearly wellness. He did have some labs done in August of 2020. April 29 lipid profile with an LDL 135. CBC Chem 12 lipid profile and a PSA colonoscopy up-to-date. BMI 27 less than 30. Habits negative. Family history positive for CAD 70-year-old father. - antic guidance - Habits neg - Yearly FU Orders Placed This Encounter ??? CT Coronary Calcium Scoring Standing Status: Future Standing Expiration Date: 01/15/2022 Order Specific Question: Where should this order be performed? Answer: External Order [171] ??? CBC with auto differential Standing Status: Future Number of Occurrences: 1 Standing Expiration Date: 01/15/2022 ??? Comprehensive metabolic panel Standing Status: Future Number of Occurrences: 1 Standing Expiration Date: 01/15/2022 Order Specific Question: Has the patient fasted? Answer: No ??? Lipid panel Standing Status: Future Number of Occurrences: 1 Standing Expiration Date: 01/15/2022 Order Specific Question: Has the patient been fasting for 8 hours or more? Answer: No ??? PSA screen Standing Status: Future Number of Occurrences: 1 Standing Expiration Date: 01/15/2022 ??? atorvastatin (LIPITOR) 40 mg tablet Sig: Take 1 tablet (40 mg total) by mouth daily Dispense: 90 tablet Refill: 3 Specific topics reviewed: drugs, ETOH, and tobacco, importance of regular dental care, importance of regular exercise, importance of varied diet, limit TV, media violence and seat belts. Edgar Mckeon MD R VEHICLE TECHNICIAN documented in this encounter Plan of Treatment Not on file documented as of this encounter Procedures Procedure Name Priority Date/Time Associated Diagnosis Comments PSA SCREEN Routine 10/24/2021 2:41 PM CDT Annual physical exam CBC WITH AUTO DIFFERENTIAL Routine 10/24/2021 2:41 PM CDT Annual physical exam LIPID PANEL Routine 10/24/2021 2:41 PM CDT Annual physical exam COMPREHENSIVE METABOLIC PANEL Routine 10/24/2021 2:41 PM CDT Annual physical exam documented in this encounter Results * PSA screen (10/24/2021 2:41 PM CDT) [...] MD LAB BLOOD ORDERABLES Final Re sult Performing Organization Address [facility] Co de Phone Number CECILIA [facility] [address] [facility] [place] [address] * Lipid panel (10/24/2021 2:41 PM CDT) [facility] Cholesterol 156 <200 mg/dL [facility] HDL 49 > OR = 40 mg/dL [facility] Triglycerides 55 <150 mg/dL [facility] LDL 93 mg/dL (calc) [facility] Comment: Reference range: <100 Desirable range <100 mg/dL for primary prevention; ?? <70 mg/dL for patients with CHD or diabetic patients with > or = 2 CHD risk factors. LDL-C is now calculated using the Steven-Coronel calculation, which is a validated novel method providing better accuracy than the Friedewald equation in the estimation of LDL-C. Steven SS et al. DARLENE. 2013;310(19): 8253-3278 (http://education.[employer] [facility])/faq/EAS196) Chol/HDL ratio 3.2 <5.0 (calc) [facility] Non-HDL, (LDL+VLDL) 107 <130 mg/dL (calc) [facility] Comment: For patients with diabetes plus 1 major ASCVD risk factor, treating to a non-HDL-C goal of <100 mg/dL (LDL-C of <70 mg/dL) is considered a therapeutic option. Blood specimen (specimen) 10/24/2021 2:41 PM CDT 10/24/2021 2:44 PM CDT Narrative [facility] - 10/25/2021 5:37 AM CDT FASTING:YES FASTING: YES Edgar Mckeon MD LAB BLOOD ORDERABLES Final Re sult Performing Organization Address [facility]/ZIP Co de Phone Number [email or web address] [address] [facility] [place] [phone] * (ABNORMAL) Comprehensive metabolic panel (10/24/2021 2:41 PM CDT) Glucose 101(H) 65 - 99 mg/dL [facility] Comment: ? Fasting reference interval For someone without known diabetes, a glucose value between 100 and 125 mg/dL is consistent with prediabetes and should be confirmed with a follow-up test. BUN 19 7 - 25 mg/dL [facility] Creatinine 1.24 0.70 - 1.30 mg/dL [facility] eGFR 68 > OR = 60 mL/min/1. 73m2 [facility] Comment: The eGFR is based on the CKD-EPI 2020 equation. To calculate the new eGFR from a previous Creatinine or Cystatin C result, go to https://www.kidney.org/professionals/ kdoqi/gfr%5Fcalculator BUN/creat ratio NOT APPLICABLE 6 - 22 (calc) [facility] Sodium 138 135 - 146 mmol/L [facility] Potassium, pl 4.5 3.5 - 5.3 mmol/L [facility] Chloride 103 98 - 110 mmol/L [facility] CO2 30 20 - 32 mmol/L [facility] Calcium 9.8 8.6 - 10.3 mg/dL [facility] Protein, sr 6.9 6.1 - 8.1 g/dL [facility] Albumin 4.6 3.6 - 5.1 g/dL [facility] GLOBULIN 2.3 1.9 - 3.7 g/dL (calc) [facility] Alb/glob ratio 2.0 1.0 - 2.5 (calc) [facility] Bilirubin, total 0.6 0.2 - 1.2 mg/dL [facility] Alk phos 52 35 - 144 U/L [facility] AST 31 10 - 35 U/L [facility] ALT (SGPT) 33 9 - 46 U/L [facility] Blood specimen (specimen) 10/24/2021 2:41 PM CDT 10/24/2021 2:44 PM CDT Narrative [facility] - 10/25/2021 5:37 AM CDT FASTING:YES FASTING: YES us Edgar Mckeon MD LAB BLOOD ORDERABLES Final Re sult [facility] [address] [phone] * CBC with auto differential (10/24/2021 2:41 PM CDT) Pathologist [facility] WBC 4.6 3.8 - 10.8 Thousand/u L [facility] RBC, POC 4.55 4.20 - 5.80 Million/uL [facility] Hgb 14.1 13.2 - 17.1 g/dL [facility] Hct 41.4 38.5 - 50.0 % [facility] MCV 91.0 80.0 - 100.0 fL [facility] MCH 31.0 27.0 - 33.0 pg [facility] MCHC 34.1 32.0 - 36.0 g/dL [facility] Rdw 12.3 11.0 - 15.0 % [facility] Platelets 210 140 - 400 Thousand/u L [facility] MPV 9.7 7.5 - 12.5 fL [facility] Neutrophils, abs 2,240 1,500 - 7,800 cells/uL [facility] Lymphocytes, abs 1,766 850 - 3,900 cells/uL [facility] Monocyte abs 446 200 - 950 cells/uL [facility] Eosinophils, abs 87 15 - 500 cells/uL [facility] Basophils, abs 60 0 - 200 cells/uL [facility] Neutrophils 48.7 % [facility] Lymphocyte pct 38.4 % [facility] Monocytes 9.7 % [facility] Eosinophils 1.9 % [facility] Basophils 1.3 % [facility] Blood specimen (specimen) 10/24/2021 2:41 PM CDT 10/24/2021 2:44 PM CDT Narrative [facility] - 10/25/2021 5:37 AM CDT FASTING:YES FASTING: YES Edgar Mckeon MD LAB BLOOD ORDERABLES Final Re sult [facility] [address] [phone] documented in this encounter Visit Diagnoses Diagnosis Annual physical exam- Primary Routine general medical examination at a health care facility documented in this encounter Discontinued Medications Medication Sig Discontinue Reason Start Date End Da te PARoxetine (PAXIL) 20 mg tablet Take 1 tablet (20 mg total) by mouth every morning 12/06/2019 01/15/2021 atorvastatin (LIPITOR) 40 mg tablet Take 1 tablet (40 mg total) by mouth daily Reorder 12/06/2019 01/15/2021 documented as of this encounter Historical Medications * This list may reflect changes made after this encounter. arginine HCl, L-arginine, 1,000 mg tablet Take 1,000 mg by mouth daily 04/20/2020 aspirin 81 mg enteric coated tablet Take 1 tablet (81 mg total) by mouth daily 04/21/2020 ergocalciferol, vitamin D2, 50 mcg (2,000 unit) tablet 2,000 Units 04/20/2020 zinc-vit C-pyridoxine, vit B6, 12-60-0.5 mg lozenge 50 mg 04/20/2020 PARoxetine (PAXIL) 20 mg tablet Take 20 mg by mouth daily 04/20/2020 03/14/2021 added in this encounter Care Teams Senior Scientist Relationship Specialty Start Date End Date Edgar Mckeon MD PCP - General 05/04/17 documented as of this encounter
--- OUTSIDE RECORDS SUMMARY | 2024-02-23 15:05 | XMS_ITS | Encounter Summary ---
Author Organization [facility] Healthcare Address [address] [place] [address] Care Team Providers Care Rn Baby Name Role Phone Edgar Mckeon MD Primary Care Provider [phone] Encounter Details Date Type Department Care Team (Late st Contact Info) Description 04/20/2020 3:50 PM EVICTION SPECIALIST - 04/21/2020 1:00 PM EVICTION SPECIALIST Hospital Encounter [facility] ADMIT Unknown, Jazmin Demarco MD [address] [place] [address] Discharge Disposition: Discharge to home or self [...] on file Legal Sex Male 8:16 AM EVICTION SPECIALIST Gender Identity Not on file Sexual Orientation Not on file documented as of this encounter Last Filed Vital Signs Vital Sign Reading Time Taken Comments Blood Pressure 114/70 04/21/2020 11:00 AM EVICTION SPECIALIST Pulse 70 04/21/2020 11:00 AM EVICTION SPECIALIST Temperature 36.6 ??C (97.8 ??F) 04/21/2020 1 1:00 AM EVICTION SPECIALIST Respiratory Rate - - Oxygen Saturation 96% 04/21/2020 11: 00 AM EVICTION SPECIALIST Inhaled Oxygen Concentration - - Weight 103.6 kg (228 lb 6.4 oz) 021 11:00 AM EVICTION SPECIALIST Height 203.2 cm (6' 8 ) 04/21/2020 11:0 0 AM EVICTION SPECIALIST Body Mass Index 25.09 04/21/2020 11:00 AM EVICTION SPECIALIST documented in this encounter Medications at Time [...] muscle spasms 90 tablet 1 12/06/2019 06/01/2023 [employer] red pine bark extract ([employer] PINE BK EXT, BULK,) 95 % powder [...] 12/01/2018 08/31/2020 documented as of this encounter Discharge Disposition Disposition Code Departure Means Destination Discharge to home or self care documented in this encounter Plan of Treatment Not on file documented as of this encounter Procedures Procedure Name Priority Date/Time Associated Diagnosis Comments SCAN - LABS 04/25/2020 12:00 AM EVICTION SPECIALIST TROPONIN I Routine 04/20/2020 9:39 PM EVICTION SPECIALIST TROPONIN I Routine 04/20/2020 7:10 PM EVICTION SPECIALIST TNI WITH LIPID PANEL Routine 04/20/2020 1:44 PM EVICTION SPECIALIST THYROID FUNCTION CASCADE Routine 04/20/2020 1:44 PM EVICTION SPECIALIST CBC WITH AUTO DIFFERENTIAL Routine 04/20/2020 1:44 PM EVICTION SPECIALIST PHOSPHORUS Routine 04/20/2020 1:44 PM EVICTION SPECIALIST MAGNESIUM Routine 04/20/2020 1:44 PM EVICTION SPECIALIST ETHANOL Routine 04/20/2020 1:44 PM EVICTION SPECIALIST COMPREHENSIVE METABOLIC PANEL Routine 04/20/2020 1:44 PM EVICTION SPECIALIST ECG 12-LEAD 04/20/2020 1:31 PM EVICTION SPECIALIST URINALYSIS, COMPLETE W/REFLEX TO CULTURE Routine 04/20/2020 1:30 PM EVICTION SPECIALIST DRUGS OF ABUSE SCREEN, URINE WITHOUT CONFIRMATION Routine 04/20/2020 1:30 PM EVICTION SPECIALIST CTA CAROTIDS STROKE 04/20/2020 1 2:[address] STROKE PROTOCOL W WO CONTRAST 04/20/2020 12:00 AM EVICTION SPECIALIST MRI BRAIN WO CONTRAST 04/20/2020 12:00 AM EVICTION SPECIALIST XR CHEST 1 VIEW 04/20/2020 12:[address] HEAD WO CONTRAST 04/20/2020 1 2:00 AM EVICTION SPECIALIST documented in this encounter Results * SCAN - LABS (04/25/2020 12:00 AM EVICTION SPECIALIST) Narrative 04/25/2020 12:00 AM EVICTION SPECIALIST Ordered by an unspecified provider. Mook Qureshi MD Final Res ult * Troponin I (04/20/2020 9:39 PM EVICTION SPECIALIST) [facility] Troponin I <0.300 0.000 - 0.300 ng/mL [facility] Comment: Reference using TERI Chemiluminescence ? Negative: Repeat in 4-6 hours as indicated. 04/20/2020 9:39 PM EVICTION SPECIALIST 04/20/2020 9:59 PM EVICTION SPECIALIST Narrative Resulting Agency Comment MANI Jazmin Justin MD LAB BLOOD ORDERABLES Final Res ult Performing Organization Address [facility] Co de Phone Number [address] [phone] * Troponin I (04/20/2020 7:10 PM EVICTION SPECIALIST) [facility] Troponin I <0.300 0.000 - 0.300 ng/mL [facility] Comment: Reference using TERI Chemiluminescence ? Negative: Repeat in 4-6 hours as indicated. 04/20/2020 7:10 PM EVICTION SPECIALIST 04/20/2020 7:32 PM EVICTION SPECIALIST Narrative Resulting Agency Comment MANI Jazmin Justin MD LAB BLOOD ORDERABLES Final Res ult Performing Organization Address [facility] de Phone Number [address] [phone] * Ethanol (04/20/2020 1:44 PM EVICTION SPECIALIST) [facility] Ethyl Alcohol <10 mg/dL [facility] Comment: % = mg/dL x .001 04/20/2020 1:44 PM EVICTION SPECIALIST 04/20/2020 1:52 PM EVICTION SPECIALIST Narrative Resulting Agency Comment ER Harriett BARBER LAB BLOOD ORDERABLES Fin al Result Performing Organization Address [facility] de Phone Number [address] [phone] * TSH reflex to free T4 (04/20/2020 1:44 PM EVICTION SPECIALIST) TSH W REFLEX TO FT4 1.380 0.27 - 4.20 uIU/mL [facility] 04/20/2020 1:44 PM EVICTION SPECIALIST 04/20/2020 1:52 PM EVICTION SPECIALIST Narrative Resulting Agency Comment ER Harriett BARBER LAB BLOOD ORDERABLES Fin al Result Performing Organization Address [facility] Co de Phone Number [address] [phone] * Phosphorus (04/20/2020 1:44 PM EVICTION SPECIALIST) Phosphorus 3.8 2.3 - 4.5 mg/dL [facility] 04/20/2020 1:44 PM EVICTION SPECIALIST 04/20/2020 1:52 PM EVICTION SPECIALIST Narrative Resulting Agency Comment ER Harriett BARBER LAB BLOOD ORDERABLES Fin al Result Performing Organization Address [facility] de Phone Number [address] [phone] * Magnesium (04/20/2020 1:44 PM EVICTION SPECIALIST) Magnesium 2.0 1.6 - 2.6 mg/dL [facility] Comment: Magnesium sulfate therapy: ??3.0-9.1 mg/dL 04/20/2020 1:44 PM EVICTION SPECIALIST 04/20/2020 1:52 PM EVICTION SPECIALIST Narrative Resulting Agency Comment ER us Harriett BARBER LAB BLOOD ORDERABLES [place] [address], [facility] [phone] * (ABNORMAL) TNI with LIPID PANEL (04/20/2020 1:44 PM EVICTION SPECIALIST) Troponin I <0.300 0.000 - 0.300 ng/mL [facility] Comment: Reference using TERI Chemiluminescence ? Negative: Repeat in 4-6 hours as indicated. Triglycerides 79 0 - 149 mg/dL [facility] Comment: National Lipid Association/NCEP Guidelines: ?? Normal ?< 150 mg/dL ?? Borderline high ?? 150-199 mg/dL ?? High ?200-499 mg/dL ?? Very High ? >=500 mg/dL Cholesterol 196 0 - 199 mg/dL [facility] Comment: National Lipid Association/NCEP Guidelines: Desirable ? < 200 mg/dL Borderline high: ??200-239 mg/dL High Risk: ?>=240 mg/dL HDL Cholesterol 45 mg/dL [facility] Comment: Reference Ranges: ? Males: >=40 mg/dL ? Females: >=50 mg/dL LDL Cholesterol, Calc 135(H) 0 - 129 mg/dL [facility] Comment: National Lipid Association/NCEP Guidelines: ??Optimal ? < 100 mg/dL ??Near Optimal ?100-129 mg/dL ??Borderline high 130-159 mg/dL ??High ?>=160 mg/dL Cholesterol/HDL Ratio 4.4 [facility] Comment: Optimal ??< 3.5:1 High ? > 5:1 04/20/2020 1:44 PM EVICTION SPECIALIST 04/20/2020 1:52 PM EVICTION SPECIALIST Narrative Resulting Agency Comment ER us Harriett BARBER LAB BLOOD ORDERABLES Fin al Result [facility] [address] [place] [address], [facility] [phone] * (ABNORMAL) Comprehensive metabolic panel (04/20/2020 1:44 PM EVICTION SPECIALIST) Sodium 139 135 - 145 mmol/L [facility] Potassium 4.2 3.3 - 5.1 mmol/L [facility] Chloride 103 96 - 108 mmol/L [facility] Carbon Dioxide 27 22 - 32 mmol/L [facility] Anion Gap 9 7 - 16 [facility] Glucose 109(H) 70 - 100 mg/dL [facility] BUN 15 8 - 25 mg/dL [facility] Creatinine 1.1 0.5 - 1.3 mg/dL [facility] Comment: NOTE: Estimated GFR (Cockroft-Gault) will NOT be calculated unless patient Height and Weight were entered. Also, Kidney Disease Stage (GFR) and Estimated GFR (Cockroft-Gault) will NOT be calculated if Creatinine result is <0.2. Kidney Disease Stage 74 mL/MIN [facility] Comment: NOTE; ??The GFR is an estimated value using the creatinine, sex, age, and race of the patient. THE Estimated Kidney Disease GFR is validated for AGES 18-70 YEARS STAGE ?mL/Min ?DESCRIPTION ??1 ?90 mL/min or more ?Normal or elevated GFR ??2 ? 60-89 mL/min ?Mildly decreased GFR ??3 ? 30-59 mL/min ?Moderately decreased GFR ??4 ? 15-29 mL/min ?Severely decreased GFR ??5 ? <15 mL/min ? Kidney failure or on dialysis Est GFR (Cockcroft-G) 106 ml/MIN [facility] Comment: Estimated GFR(Cockroft-Gault)is used to calculate patient medication dosage Calcium 10.1 8.6 - 10.3 mg/dL [facility] Total Protein 7.7 6.4 - 8.3 g/dL [facility] Albumin 4.7 3.5 - 5.0 g/dL [facility] Globulin 3.0 2.3 - 3.5 gm/dL [facility] Albumin/Globulin Ratio 1.6 1.1 - 1.8 [facility] Total Bilirubin 0.8 0.0 - 1.2 mg/dL [facility] AST 23 0 - 40 U/L [facility] ALT 20 0 - 41 U/L [facility] Alkaline Phosphatase 65 40 - 129 U/L [facility] 04/20/2020 1:44 PM EVICTION SPECIALIST 04/20/2020 1:52 PM EVICTION SPECIALIST Narrative Resulting Agency Comment ER us Harriett BARBER LAB BLOOD ORDERABLES Fin al Result Performing Organization Address City/State/[facility] Co de Phone Number [facility] [address] [phone] * CBC with auto differential (04/20/2020 1:44 PM EVICTION SPECIALIST) WBC 4.5 3.8 - 9.9 X10 3/ul [facility] RBC 4.85 4.30 - 5.80 x10 6/ul [facility] Hemoglobin 15.0 13.0 - 17.5 g/dL [facility] Hct 44.1 38.9 - 50.3 % [facility] MCV 90.9 81.3 - 96.4 fl [facility] MCH 30.9 27.1 - 33.3 pg [facility] MCHC 34.0 32.3 - 35.7 g/dl [facility] RDW 11.9 11.1 - 14.9 % [facility] Plt Count 185 150 - 400 x10 3/ul [facility] MPV 9.4 9.1 - 12.3 fl [facility] Neut % 44.3 % [facility] Immature Gran % 0.0 % [facility]ENN[facility] Lymph % 43.0 % [facility] [place] % 10.5 % [facility] Eos % 1.1 % [facility] AUTO BASO % 1.1 % [facility] NEUTROPHIL ABS # 2.0 1.7 - 6.5 x10 3/ul [facility] Immature Gran # 0.0 0.0 - 0.1 x10 3/ul [facility] Absolute Lymphs (auto) 1.9 0.8 - 3.3 x10 3/ul [facility] Absolute Monos (auto) 0.5 0.2 - 0.8 x10 3/ul [facility] Absolute Eos (auto) 0.1 0.0 - 0.5 x10 3/ul [facility] BASOPHIL ABS # 0.1 0.0 - 0.1 x10 3/ul [facility] Nucleat RBC Rel Count 0.0 #/100WBC [facility] NRBC abs 0.00 0.00 - 0.01 x10 3/ul [facility] Absolute Neutrophils 2,000 200 - 8,000 /ul [facility] 04/20/2020 1:44 PM EVICTION SPECIALIST 04/20/2020 1:52 PM EVICTION SPECIALIST Narrative Resulting Agency Comment ER us Harriett BARBER LAB BLOOD ORDERABLES Fin al Result [facility] [address] [phone] * ECG 12 lead (04/20/2020 1:31 PM EVICTION SPECIALIST) Ventricular Rate EKG/Min 78 BPM [facility] Atrial Rate 78 BPM [facility] NV-Interval (MSEC) 162 ms [facility] QRS-Interval (MSEC) 90 ms [facility] QT-Interval (MSEC) 364 ms [facility] QTc 414 ms [facility] P [place] 70 degrees [facility] R [place] 57 degrees [facility] T [place] 49 degrees [facility] Diagnosis Normal sinus rhythm Normal ECG When compared with ECG of 03-AUG-2013 21:53, No significant change was found [facility] 04/20/2020 1:31 PM EVICTION SPECIALIST 04/20/2020 6:01 PM EVICTION SPECIALIST Narrative Resulting Agency Comment MAR us Harriett BARBER ECG ORDERABLES Final Re sult [facility] * Drugs of Abuse Screen, Urine without Confirmation (04/20/2020 1:30 PM EVICTION SPECIALIST) Amphetamines NOT DETECTED [facility] Comment: This assay uses 500 ng/mL as a cutoff for a positive result. Barbiturates NOT DETECTED JENNIFER RIA [employer] [facility] Comment: This assay uses 200 ng/mL as a cutoff for a positive result. Urine Fentanyl NOT DETECTED [facility] Comment: This assay uses 1 ng/mL as a cutoff for a positive result. Benzodiazepines NOT DETECTED [facility] Comment: This assay uses 100 ng/mL as a cutoff for a positive result. Cannabinoids NOT DETECTED [facility] Comment: This assay uses 50 ng/mL as a cutoff for a positive result. Cocaine NOT DETECTED [facility] Comment: This assay uses 150 ng/mL as a cutoff for a positive result. Opiates NOT DETECTED [facility] Comment: This assay uses 300 ng/mL as a cutoff for a positive result. Urine methadone NOT DETECTED [facility] Comment: This assay uses 300 ng/mL as a cutoff for a positive result. Urine phencyclidine plus NOT DETECTED [facility] Comment: This assay uses 25 ng/mL as a cutoff for a positive result. Oxycodone NOT DETECTED [facility] Comment: This assay uses 100 ng/mL as a cutoff for a positive result. Urine Creatinine/REYNALDO 116.6 mg/dL [facility] Comment: If Creatinine is < 40 mg/dL, recollection is suggested. Drug of abuse screening is performed by immunoassay for medical purposes only. This is not to be used for Pain Management purposes. 04/20/2020 1:30 PM EVICTION SPECIALIST 04/20/2020 1:53 PM EVICTION SPECIALIST Narrative [facility] - 04/20/2020 2:20 PM EVICTION SPECIALIST Collected By cc Resulting Agency Comment ER us Harriett BARBER LAB URINE ORDERABLES Fin al Result [address] [phone] * URINALYSIS, COMPLETE W/REFLEX TO CULTURE (04/20/2020 1:30 PM EVICTION SPECIALIST) Ur Collection Type CLEAN CATCH [facility] Ur Culture Indicated? C S NOT INDICATED [facility] Urine Color YELLOW YELLOW [facility] Urine Clarity CLEAR [facility]AR [facility] Urine Glucose (UA) NORMAL NORMAL mg/dL [facility] Urine Bilirubin NEGATIVE NEGATIVE mg/dl [facility] Urine Ketones NEGATIVE NEGATIVE mg/dL [facility] Ur Specific [place] 1.012 1.005 - 1.025 [facility] Urine Blood NEGATIVE NEGATIVE mg/dl [facility] Urine pH 5.0 5.0 - 8.0 [facility] Urine Protein NEGATIVE NEGATIVE mg/dL [facility] Urine Urobilinogen NORMAL NORMAL mg/dL [facility] Urine Nitrite NEGATIVE NEGATIVE [facility] Ur Leukocyte Esterase NEGATIVE NEGATIVE Pablo/ul [facility] Ur Microscopic Review Indicated or Ordered [facility] Urine RBC 0-2 0 - 2 /HPF [facility] Urine WBC 0-5 0 - 2 /HPF [facility] Urine Mucus Present /LPF [facility] 04/20/2020 1:30 PM EVICTION SPECIALIST 04/20/2020 1:53 PM EVICTION SPECIALIST Narrative [facility] - 04/20/2020 2:16 PM EVICTION SPECIALIST Indication(s) for ordering ?? Increased freq/urgency cc Clean catch Resulting Agency Comment ER us Harriett BARBER LAB URINE ORDERABLES Fin al Result [facility] [address] [place] [address], [facility] [phone] * MRI Brain WO Contrast (04/20/2020 12:00 AM EVICTION SPECIALIST) Anatomical Region Laterality Modality Head and Neck N/A Magnetic Resonan ce 04/20/2020 8:37 PM EVICTION SPECIALIST Narrative 04/20/2020 8:42 PM EVICTION SPECIALIST Patient Name: HÉCTOR PÉREZ ?Ordering Dr: Jazmin Justin MD ?? D.O.B: 1965 ? Exam Date: 04/20/20 ?? 0000 ?? Age: 54 ?Sex: Male ? MR#: [id number] ?? Loc: ??[id number] ? RADIOLOGY REPORT ?? Order #[id number] ?? Magnetic Resonance Imaging ? MRI Brain W/O Contrast ? Signed ? EXAM DESCRIPTION: ?? MRI Brain W/O Contrast ? REASON FOR STUDY: ?? Dizziness beginning today. ? TECHNIQUE: ??Multiplanar imaging includes non-contrasted T1, T2, FLAIR, and ?? diffusion with ADC map sequences. Additional sequence(s) sensitive to blood ?? products. Images stored on [employer]. ? COMPARISON: ?? Same-day head CT. ? FINDINGS: ? CEREBRUM: ??No hemorrhage, edema, or mass effect. ? WHITE MATTER: ??Normal. ? POSTERIOR FOSSA: ??Brainstem and cerebellum appear unremarkable. ? DIFFUSION IMAGING: ??No acute or recent infarct. ? EXTRA-AXIAL SPACES: ??No hemorrhage. ??No mass. ? BRAIN VOLUME: ??Within normal limits for age. ? PITUITARY: ??Unremarkable. ? VASCULATURE: ??No flow disturbance identified. ? ORBITS: ??No appreciable abnormality. ? PARANASAL SINUSES AND MASTOIDS: ??Well-aerated with no fluid levels. No mucosal ?? thickening. ? OTHER: ??No other significant finding. ? IMPRESSION: ?? Normal MRI brain. ??No acute infarct or intracranial hemorrhage. ? THIS IS AN ELECTRONICALLY VERIFIED FINAL REPORT ?? 04/20/2020 8:42 PM - Electronically signed by Vincenzo Green M.D. ?? Vincenzo Green M.D. ? RT: RT ?? D: ??04/20/2020 8:42 PM ?? T: ??04/20/2020 8:42 PM ? Report ID: [id number] ?? Reading Location: ??[id number] ? REPORT ELECTRONICALLY SIGNED IN OTHER VENDOR SYSTEM ?? Resulting Agency Comment I Procedure Note Vincenzo Green MD - 04/20/2020 Patient Name: HÉCTOR PÉREZ Dr: Jazmin Justin MD D.O.B: 1965 Exam Date: 04/20/20 0000 Age: 54 Sex: Male MR#: [id number] Loc: [id number] RADIOLOGY REPORT Order #[id number] Magnetic Resonance Imaging MRI Brain W/O Contrast Signed EXAM DESCRIPTION: MRI Brain W/O Contrast REASON FOR STUDY: Dizziness beginning today. TECHNIQUE: Multiplanar imaging includes non-contrasted T1, T2, FLAIR,and diffusion with ADC map sequences. Additional sequence(s) sensitive [employer] products. Images stored on PACS. COMPARISON: Same-day head CT. FINDINGS: CEREBRUM: No hemorrhage, edema, or mass effect. WHITE MATTER: Normal. POSTERIOR FOSSA: Brainstem and cerebellum appear unremarkable. DIFFUSION IMAGING: No acute or recent infarct. EXTRA-AXIAL SPACES: No hemorrhage. No mass. BRAIN VOLUME: Within normal limits for age. PITUITARY: Unremarkable. VASCULATURE: No flow disturbance identified. ORBITS: No appreciable abnormality. PARANASAL SINUSES AND MASTOIDS: Well-aerated with no fluid levels. Nomucosal thickening. OTHER: No other significant finding. IMPRESSION: Normal MRI brain. No acute infarct or intracranialhemorrhage. THIS IS AN ELECTRONICALLY VERIFIED FINAL REPORT 04/20/2020 8:42 PM - Electronically signed by Vincenzo Green M.D. RT: RT Report ID: [id number] Reading Location: [id number] REPORT ELECTRONICALLY SIGNED IN OTHER VENDOR SYSTEM Jazmin Justin MD IMG MRI PROCEDURES Final Resul t * CTA Stroke Head Neck W WO Contrast (04/20/2020 12:00 AM EVICTION SPECIALIST) Anatomical Region Laterality Modality Head and Neck N/A Computed Tomogra phy 04/20/2020 3:16 PM EVICTION SPECIALIST Narrative 04/20/2020 3:26 PM EVICTION SPECIALIST Patient Name: HÉCTOR PÉREZ ?Ordering Dr: Marina Resendez MD ?? D.O.B: 1965 ? Exam Date: 04/20/20 ?? 0000 ?? Age: 54 ?Sex: Male ? MR#: [id number] ?? Loc: ? RADIOLOGY REPORT ?? Order #[id number] ?? CT Scan ? CTA Cerebral Art Stroke w Cont ? Signed ? EXAM DESCRIPTION: ?? CTA Carotids Stroke w Contrast; CTA Cerebral Art Stroke w ?? Cont ? REASON FOR STUDY: ?? Foggy feeling, visual disturbances and unable to read ?? simple words starting last night. ? TECHNIQUE: ??Post IV contrast scanning, thin section axial imaging from the ?? great vessel origins through the brain. ?? 3D MIP images rendered on scanning ?? unit and reviewed at time of interpretation. ??Carotid stenosis measurements ?? are based on NASCET criteria. ??Automated exposure control was used as a dose ?? optimization technique for this examination. ? CONTRAST TYPE/DOSE: ?? 100 mL Optiray 350 injected via ??right antecubital fossa ? COMPARISON: ?? Same day noncontrast head CT. ? FINDINGS: ? BRAIN: ? CEREBRUM: ??No hemorrhage, edema or mass effect. No recent infarct. ? WHITE MATTER: ??Normal. ? POSTERIOR FOSSA: ??No masses. No hemorrhage. No evidence for acute infarction. ? EXTRA-AXIAL SPACES: ??No fluid collections. No masses. ? BRAIN VOLUME: ?? Brain parenchyma volume well-maintained. ? ORBITS: ??No intra- or extraconal masses. Normal appearing globes ? CALVARIUM: ??No fracture. ? PARANASAL SINUSES AND MASTOIDS: ??No fluid or mucosal thickening. ? CAROTID AND VERTEBRAL ARTERIES: ? RIGHT CAROTIDS: ??No internal, external or common carotid stenosis. ? LEFT CAROTIDS: ??No internal, external or common carotid stenosis. ? LEFT VERTEBRAL: ??Patent. No significant stenosis. No dissection. ? RIGHT VERTEBRAL: ??Patent. No significant stenosis. No dissection. ? AORTIC ARCH: ??Normal three-vessel origin. Bilateral subclavian arteries are ?? patent. No dissection. ? INCLUDED LUNGS: ??A 4 mm ground-glass nodule in the right upper lobe on series ?? 4, image 368 is likely inflammatory. ??A 3 mm ground-glass nodule in the left ?? upper lobe on image 50 also likely inflammatory. ??Mild biapical ?? pleuroparenchymal scarring noted. ? NECK SOFT TISSUE: ??No mass, adenopathy. ? OTHER: ??No other significant finding. ? INTRACRANIAL VESSELS: ? RINCON OF HO: ??The anterior, middle, posterior cerebral arteries are all ?? patent. ??No evidence of aneurysm or focal stenosis. ? POSTERIOR CIRCULATION: ??The distal vertebral arteries are patent as is the ?? basilar artery. No aneurysm. ? BRAIN: ??No gross enhancing lesions as visualized. ? IMPRESSION: ??BRAIN: ??No acute abnormalities or abnormal enhancing lesions. ? CAROTID CTA: ??No carotid or vertebral stenosis. ? INTRACRANIAL CTA: ??Normal. ? THIS IS AN ELECTRONICALLY VERIFIED FINAL REPORT ?? 04/20/2020 3:26 PM - Electronically signed by Sekou Franco ?? Sekou Franco ? ML: ML ?? D: ??04/20/2020 3:26 PM ?? T: ??04/20/2020 3:26 PM ? Report ID: [id number] ?? Reading Location: ??[id number] ? REPORT ELECTRONICALLY SIGNED IN OTHER VENDOR SYSTEM ?? Resulting Agency Comment E Procedure Note Sekou Franco MD - 04/20/2020 Patient Name: HÉCTOR PÉREZ Dr: Marina Resendez MD D.O.B: 1965 Exam Date: 04/20/20 0000 Age: 54 Sex: Male MR#: [id number] Loc: RADIOLOGY REPORT Order #[id number] CT Scan CTA Cerebral Art Stroke w Cont Signed EXAM DESCRIPTION: CTA Carotids Stroke w Contrast; CTA Cerebral ArtStroke w Cont REASON FOR STUDY: Foggy feeling, visual disturbances and unable to read simple words starting last night. TECHNIQUE: Post IV contrast scanning, thin section axial imaging fromthe great vessel origins through the brain. 3D MIP images rendered onscanning unit and reviewed at time of interpretation. Carotid stenosismeasurements are based on NASCET criteria. Automated exposure control was used as adose optimization technique for this examination. CONTRAST TYPE/DOSE: 100 mL Optiray 350 injected via right antecubitalfossa COMPARISON: Same day noncontrast head CT. FINDINGS: BRAIN: CEREBRUM: No hemorrhage, edema or mass effect. No recent infarct. WHITE MATTER: Normal. POSTERIOR FOSSA: No masses. No hemorrhage. No evidence for acuteinfarction. EXTRA-AXIAL SPACES: No fluid collections. No masses. BRAIN VOLUME: Brain parenchyma volume well-maintained. ORBITS: No intra- or extraconal masses. Normal appearing globes CALVARIUM: No fracture. PARANASAL SINUSES AND MASTOIDS: No fluid or mucosal thickening. CAROTID AND VERTEBRAL ARTERIES: RIGHT CAROTIDS: No internal, external or common carotid stenosis. LEFT CAROTIDS: No internal, external or common carotid stenosis. LEFT VERTEBRAL: Patent. No significant stenosis. No dissection. RIGHT VERTEBRAL: Patent. No significant stenosis. No dissection. AORTIC ARCH: Normal three-vessel origin. Bilateral subclavian arteriesare patent. No dissection. INCLUDED LUNGS: A 4 mm ground-glass nodule in the right upper lobe onseries 4, image 368 is likely inflammatory. A 3 mm ground-glass nodule in theleft upper lobe on image 50 also likely inflammatory. Mild biapical pleuroparenchymal scarring noted. NECK SOFT TISSUE: No mass, adenopathy. OTHER: No other significant finding. INTRACRANIAL VESSELS: RINCON OF HO: The anterior, middle, posterior cerebral arteries areall patent. No evidence of aneurysm or focal stenosis. POSTERIOR CIRCULATION: The distal vertebral arteries are patent as isthe basilar artery. No aneurysm. BRAIN: No gross enhancing lesions as visualized. IMPRESSION: BRAIN: No acute abnormalities or abnormal enhancinglesions. CAROTID CTA: No carotid or vertebral stenosis. INTRACRANIAL CTA: Normal. THIS IS AN ELECTRONICALLY VERIFIED FINAL REPORT 04/20/2020 3:26 PM - Electronically signed by Sekou Franco ML: ML Report ID: [id number] Reading Location: [place] [id number] REPORT ELECTRONICALLY SIGNED IN OTHER VENDOR SYSTEM Marina Resendez MD IMG CT PROCEDURES Xiomara l Result * CTA Carotids Stroke (04/20/2020 12:00 AM EVICTION SPECIALIST) Anatomical Region Laterality Modality Body N/A Computed Tomogra phy 04/20/2020 3:16 PM EVICTION SPECIALIST Narrative 04/20/2020 3:26 PM EVICTION SPECIALIST Patient Name: HÉCTOR PÉREZ ?Ordering Dr: Marina Resendez MD ?? D.O.B: 1965 ? Exam Date: 04/20/20 ?? 0000 ?? Age: 54 ?Sex: Male ? MR#: [id number] ?? Loc: ? RADIOLOGY REPORT ?? Order #[id number] ?? CT Scan ? CTA Carotids Stroke w Contrast ? Signed ? EXAM DESCRIPTION: ?? CTA Carotids Stroke w Contrast; CTA Cerebral Art Stroke w ?? Cont ? REASON FOR STUDY: ?? Foggy feeling, visual disturbances and unable to read ?? simple words starting last night. ? TECHNIQUE: ??Post IV contrast scanning, thin section axial imaging from the ?? great vessel origins through the brain. ?? 3D MIP images rendered on scanning ?? unit and reviewed at time of interpretation. ??Carotid stenosis measurements ?? are based on NASCET criteria. ??Automated exposure control was used as a dose ?? optimization technique for this examination. ? CONTRAST TYPE/DOSE: ?? 100 mL Optiray 350 injected via ??right antecubital fossa ? COMPARISON: ?? Same day noncontrast head CT. ? FINDINGS: ? BRAIN: ? CEREBRUM: ??No hemorrhage, edema or mass effect. No recent infarct. ? WHITE MATTER: ??Normal. ? POSTERIOR FOSSA: ??No masses. No hemorrhage. No evidence for acute infarction. ? EXTRA-AXIAL SPACES: ??No fluid collections. No masses. ? BRAIN VOLUME: ?? Brain parenchyma volume well-maintained. ? ORBITS: ??No intra- or extraconal masses. Normal appearing globes ? CALVARIUM: ??No fracture. ? PARANASAL SINUSES AND MASTOIDS: ??No fluid or mucosal thickening. ? CAROTID AND VERTEBRAL ARTERIES: ? RIGHT CAROTIDS: ??No internal, external or common carotid stenosis. ? LEFT CAROTIDS: ??No internal, external or common carotid stenosis. ? LEFT VERTEBRAL: ??Patent. No significant stenosis. No dissection. ? RIGHT VERTEBRAL: ??Patent. No significant stenosis. No dissection. ? AORTIC ARCH: ??Normal three-vessel origin. Bilateral subclavian arteries are ?? patent. No dissection. ? INCLUDED LUNGS: ??A 4 mm ground-glass nodule in the right upper lobe on series ?? 4, image 368 is likely inflammatory. ??A 3 mm ground-glass nodule in the left ?? upper lobe on image 50 also likely inflammatory. ??Mild biapical ?? pleuroparenchymal scarring noted. ? NECK SOFT TISSUE: ??No mass, adenopathy. ? OTHER: ??No other significant finding. ? INTRACRANIAL VESSELS: ? RINCON OF HO: ??The anterior, middle, posterior cerebral arteries are all ?? patent. ??No evidence of aneurysm or focal stenosis. ? POSTERIOR CIRCULATION: ??The distal vertebral arteries are patent as is the ?? basilar artery. No aneurysm. ? BRAIN: ??No gross enhancing lesions as visualized. ? IMPRESSION: ??BRAIN: ??No acute abnormalities or abnormal enhancing lesions. ? CAROTID CTA: ??No carotid or vertebral stenosis. ? INTRACRANIAL CTA: ??Normal. ? THIS IS AN ELECTRONICALLY VERIFIED FINAL REPORT ?? 04/20/2020 3:26 PM - Electronically signed by Sekou Franco ?? Sekou Franco ? ML: ML ?? D: ??04/20/2020 3:26 PM ?? T: ??04/20/2020 3:26 PM ? Report ID: [id number] ?? Reading Location: ??[id number] ? REPORT ELECTRONICALLY SIGNED IN OTHER VENDOR SYSTEM ?? Resulting Agency Comment E Procedure Note Sekou Franco MD - 04/20/2020 Patient Name: ESTEVANLUTHERHÉCTORMALU Rodriguez Dr: Marina Resendez MD D.O.B: 1965 Exam Date: 04/20/20 0000 Age: 54 Sex: Male MR#: [id number] Loc: RADIOLOGY REPORT Order #[id number] CT Scan CTA Carotids Stroke w Contrast Signed EXAM DESCRIPTION: CTA Carotids Stroke w Contrast; CTA Cerebral ArtStroke w Cont REASON FOR STUDY: Foggy feeling, visual disturbances and unable to read simple words starting last night. TECHNIQUE: Post IV contrast scanning, thin section axial imaging fromthe great vessel origins through the brain. 3D MIP images rendered onscanning unit and reviewed at time of interpretation. Carotid stenosismeasurements are based on NASCET criteria. Automated exposure control was used as adose optimization technique for this examination. CONTRAST TYPE/DOSE: 100 mL Optiray 350 injected via right antecubitalfossa COMPARISON: Same day noncontrast head CT. FINDINGS: BRAIN: CEREBRUM: No hemorrhage, edema or mass effect. No recent infarct. WHITE MATTER: Normal. POSTERIOR FOSSA: No masses. No hemorrhage. No evidence for acuteinfarction. EXTRA-AXIAL SPACES: No fluid collections. No masses. BRAIN VOLUME: Brain parenchyma volume well-maintained. ORBITS: No intra- or extraconal masses. Normal appearing globes CALVARIUM: No fracture. PARANASAL SINUSES AND MASTOIDS: No fluid or mucosal thickening. CAROTID AND VERTEBRAL ARTERIES: RIGHT CAROTIDS: No internal, external or common carotid stenosis. LEFT CAROTIDS: No internal, external or common carotid stenosis. LEFT VERTEBRAL: Patent. No significant stenosis. No dissection. RIGHT VERTEBRAL: Patent. No significant stenosis. No dissection. AORTIC ARCH: Normal three-vessel origin. Bilateral subclavian arteriesare patent. No dissection. INCLUDED LUNGS: A 4 mm ground-glass nodule in the right upper lobe onseries 4, image 368 is likely inflammatory. A 3 mm ground-glass nodule in theleft upper lobe on image 50 also likely inflammatory. Mild biapical pleuroparenchymal scarring noted. NECK SOFT TISSUE: No mass, adenopathy. OTHER: No other significant finding. INTRACRANIAL VESSELS: RINCON OF HO: The anterior, middle, posterior cerebral arteries areall patent. No evidence of aneurysm or focal stenosis. POSTERIOR CIRCULATION: The distal vertebral arteries are patent as isthe basilar artery. No aneurysm. BRAIN: No gross enhancing lesions as visualized. IMPRESSION: BRAIN: No acute abnormalities or abnormal enhancinglesions. CAROTID CTA: No carotid or vertebral stenosis. INTRACRANIAL CTA: Normal. THIS IS AN ELECTRONICALLY VERIFIED FINAL REPORT 04/20/2020 3:26 PM - Electronically signed by Sekou Franco ML: ML Report ID: [id number] Reading Location: [id number] REPORT ELECTRONICALLY SIGNED IN OTHER VENDOR SYSTEM us Marina Resendez MD IMG CT PROCEDURES Xiomara l Result * XR Chest 1 View (04/20/2020 12:00 AM EVICTION SPECIALIST) Anatomical Region Laterality Modality Body, Chest N/A Radiographic [place] ging 04/20/2020 1:16 PM EVICTION SPECIALIST Narrative 04/20/2020 1:17 PM EVICTION SPECIALIST Patient Name: HÉCTOR PÉREZ ?Ordering Dr: Harriett Wetzel PA-C ?? D.O.B: 1965 ? Exam Date: 04/20/20 ?? 0000 ?? Age: 54 ?Sex: Male ? MR#: [id number] ?? Loc: ? RADIOLOGY REPORT ?? Order #[id number] ?? Radiology ? Chest 1 View ? Signed ? EXAM DESCRIPTION: ?? Chest 1 View ? REASON FOR STUDY: ??Intermittent, Foggy feeling with visual disturbances. ?? Onset last night ? TECHNIQUE: ?? Frontal radiographic view of the chest acquired. ? COMPARISON: ?? 08/03/2013 ? FINDINGS: ? LUNGS/PLEURA: ??No focal consolidation or pneumothorax. No pleural effusion. ? HEART/MEDIASTINUM: ??Heart size is normal. Normal mediastinal and hilar ?? contours. ? HARDWARE/LINES/TUBES: ??None. ? BONES: ??No acute findings. ? OTHER: ??No other significant finding. ? IMPRESSION: ?? No acute cardiopulmonary disease. ? THIS IS AN ELECTRONICALLY VERIFIED FINAL REPORT ?? 04/20/2020 1:17 PM - Electronically signed by Darnell Lawson M.D. ?? Darnell Lawson M.D. ? AMELIA: AMELIA ?? D: ??04/20/2020 1:17 PM ?? T: ??04/20/2020 1:17 PM ? Report ID: [id number] ?? Reading Location: ??[id number] ? REPORT ELECTRONICALLY SIGNED IN OTHER VENDOR SYSTEM ?? Resulting Agency Comment E Procedure Note Dereje Lawson MD - 04/20/2020 Patient Name: HÉCTOR PÉREZ Dr: Harriett Wetzel PA-C, D.O.B: 1965 Exam Date: 04/20/20 0000 Age: 54 Sex: Male MR#: [id number] Loc: RADIOLOGY REPORT Order #[id number] Radiology Chest 1 View Signed EXAM DESCRIPTION: Chest 1 View REASON FOR STUDY: Intermittent, Foggy feeling with visualdisturbances. Onset last night TECHNIQUE: Frontal radiographic view of the chest acquired. COMPARISON: 08/03/2013 FINDINGS: LUNGS/PLEURA: No focal consolidation or pneumothorax. No pleuraleffusion. HEART/MEDIASTINUM: Heart size is normal. Normal mediastinal and hilar contours. HARDWARE/LINES/TUBES: None. BONES: No acute findings. OTHER: No other significant finding. IMPRESSION: No acute cardiopulmonary disease. THIS IS AN ELECTRONICALLY VERIFIED FINAL REPORT 04/20/2020 1:17 PM - Electronically signed by Darnell Lawson M.D. AMELIA: AMELIA Report ID: [id number] Reading Location: [id number] REPORT ELECTRONICALLY SIGNED IN OTHER VENDOR SYSTEM us Harriett BARBER IMG XR PROCEDURES Final Result * CT Head WO Contrast (04/20/2020 12:00 AM EVICTION SPECIALIST) Anatomical Region Laterality Modality Head and Neck N/A Computed Tomogra phy 04/20/2020 1:09 PM EVICTION SPECIALIST Narrative 04/20/2020 1:10 PM EVICTION SPECIALIST Patient Name: HÉCTOR PÉREZ ?Ordering Dr: Harriett Wetzel PA-C ?? D.O.B: 1965 ? Exam Date: 04/20/20 ?? 0000 ?? Age: 54 ?Sex: Male ? MR#: [id number] ?? Loc: ? RADIOLOGY REPORT ?? Order #[id number] ?? CT Scan ? CT Head WO IV Contrast ? Signed ? EXAM DESCRIPTION: ?? CT Head WO IV Contrast ? REASON FOR STUDY: ?? Foggy feeling. ??Patient is all white lights and visual ?? disturbances. ??Patient is unable to read simple words. ??Symptoms this last ?? night. ? TECHNIQUE: ??Axial images acquired through the brain without intravenous ?? contrast. ??Images stored on PACS. ?? Automated exposure control was used as a ?? dose optimization technique for this examination. ? COMPARISON: ?? 08/03/2013 ? FINDINGS: ? BRAIN: ??There is no definite evidence of acute intracranial hemorrhage. ??There ?? is no definite evidence of an extra-axial fluid collection. ??There is no ?? significant midline shift or focal mass effect. ??The ventricles are stable in ?? size and position. ??There is mild cortical atrophy with mild periventricular ?? white matter hypoattenuation, which is likely secondary to chronic ?? microvascular ischemic disease. ? CALVARIUM: ??No fracture. ? SINUSES/MASTOIDS: ??The visualized paranasal sinuses and bilateral mastoid air ?? cells are grossly clear. ? ORBITS: ??No significant abnormality. ? OTHER: ??No other significant abnormality. ? IMPRESSION: ? 1. ??No definite evidence of acute intracranial hemorrhage. ? 2. ??Mild cortical atrophy with mild periventricular white matter ?? hypoattenuation, which is likely secondary to chronic microvascular ischemic ?? disease. ??If there is clinical concern for superimposed acute ischemia, then ?? further evaluation with MRI is recommended. ? THIS IS AN ELECTRONICALLY VERIFIED FINAL REPORT ?? 04/20/2020 1:10 PM - Electronically signed by Carrillo Moreno D.O. ?? Carrillo Moreno D.O. ? PS: PS ?? D: ??04/20/2020 1:10 PM ?? T: ??04/20/2020 1:10 PM ? Report ID: [id number] ?? Reading Location: ??[id number] ? REPORT ELECTRONICALLY SIGNED IN OTHER VENDOR SYSTEM ?? Resulting Agency Comment E Procedure Note Carrillo Moreno, DO - 04/20/2020 Patient Name: HÉCTOR PÉREZ Dr: Harriett Wetzel PA-C, D.O.B: 1965 Exam Date: 04/20/20 0000 Age: 54 Sex: Male MR#: [id number] Loc: RADIOLOGY REPORT Order #[id number] CT Scan CT Head WO IV Contrast Signed EXAM DESCRIPTION: CT Head WO IV Contrast REASON FOR STUDY: Foggy feeling. Patient is all white lights andvisual disturbances. Patient is unable to read simple words. Symptoms thislast night. TECHNIQUE: Axial images acquired through the brain without intravenous contrast. Images stored on PACS. Automated exposure control was usedas a dose optimization technique for this examination. COMPARISON: 08/03/2013 FINDINGS: BRAIN: There is no definite evidence of acute intracranial hemorrhage.There is no definite evidence of an extra-axial fluid collection. There is no significant midline shift or focal mass effect. The ventricles arestable in size and position. There is mild cortical atrophy with mildperiventricular white matter hypoattenuation, which is likely secondary to chronic microvascular ischemic disease. CALVARIUM: No fracture. SINUSES/MASTOIDS: The visualized paranasal sinuses and bilateral mastoidair cells are grossly clear. ORBITS: No significant abnormality. OTHER: No other significant abnormality. IMPRESSION: 1. No definite evidence of acute intracranial hemorrhage. 2. Mild cortical atrophy with mild periventricular white matter hypoattenuation, which is likely secondary to chronic microvascularischemic disease. If there is clinical concern for superimposed acute ischemia,then further evaluation with MRI is recommended. THIS IS AN ELECTRONICALLY VERIFIED FINAL REPORT 04/20/2020 1:10 PM - Electronically signed by Carrillo oMreno D.O. PS: CHENTE Report ID: [id number] Reading Location: [id number] REPORT ELECTRONICALLY SIGNED IN OTHER VENDOR SYSTEM Harriett BARBER IMG CT PROCEDURES Final Result documented in this encounter Visit Diagnoses Not on filedocumented in this encounter Care Teams Rn Baby Relationship Specialty Start Date End Date Edgar Mckeon MD PCP - General 05/04/17 documented as of this encounter
--- OUTSIDE RECORDS SUMMARY | 2024-02-23 15:06 | XMS_ITS | Encounter Summary ---
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 Historical Provider Final Res ult documented in this encounter Visit Diagnoses Not on filedocumented in this encounter Care Teams Second Time Worker Relationship Specialty Start Date End Date Edgar Mckeon MD PCP - General 05/04/17 documented as of this encounter
--- OUTSIDE RECORDS SUMMARY | 2024-02-23 15:06 | XMS_ITS | Encounter Summary ---
Author Organization [facility] Healthcare Address [address] [place] [address] Care Team Providers Care Hourly Shift Name Role Phone Edgar Mckeon MD Primary Care Provider [phone] Encounter Details Date Type Department Care Team (Late st Contact Info) Description 08/29/2019 9:45 PM CDT Lab [address] [address] Social History Tobacco Use Types Packs/Day Years Used Date Smoking Tobacco: Never Smokeless Tobacco: Never Alcohol Use Standard Drinks/Week Comments Never 0 (1 standard drink = 0.6 oz pur e alcohol) AUDIT-C Answer Date Recorded Frequency of Alcohol Consumption Never 12/06/2018 Average Number of Drinks Not on file 019 Frequency of Binge Drinking Not on file 11/09 Sex and Gender Information Value Date Recorded Sex Assigned at Not on file 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
--- OUTSIDE RECORDS SUMMARY | 2024-02-23 15:06 | XMS_ITS | Encounter Summary ---
Author Organization [facility] Address [address] [place] [address] Care Team Providers Care Manager Of Revenue Name Role Phone Edgar Mckeon MD Primary Care Provider [phone] Reason for Visit * Reason Comments Annual Exam Encounter Details Date Type Department Care Team (Late st Contact Info) Description 12/06/2018 1:00 PM CDT Office Visit [facility] Family Medicine [address] [place] [address] Edgar Mckeon MD [address] [place] [id number] Annual physical exam (Primary Dx) Social [...] on file 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 Gender Identity Not on file Sexual Orientation Not on file documented as of this encounter Last Filed Vital Signs Vital Sign Reading Time Taken Comments Blood Pressure 120/86 12/06/2018 1:19 PM CDT Pulse 82 12/06/2018 1:19 PM CDT Temperature 37.1 ??C (98.8 ??F) 12/06/2018 1:19 PM CD T Respiratory Rate - - Oxygen Saturation 98% 12/06/2018 1:19 PM CDT Inhaled Oxygen Concentration - - Weight 106.9 kg (235 lb 9.6 oz) 12/06/2018 1:19 PM CDT Height 203.2 cm (6' 8 ) 12/06/2018 1:19 PM CDT Body Mass Index 25.88 12/06/2018 1:19 PM CDT documented in this encounter Ordered Prescriptions Prescription Sig Dispense Quantity Refills Last Filled Start Date End Date PARoxetine (PAXIL) 20 mg tablet Take 1 tablet (20 mg total) by mouth every morning 90 tablet 3 12/06/2018 0 documented in this encounter Progress Notes * Edgar Mckeon MD - 12/06/2018 1:00 PM CDT Images from the original note were not included. Subjective/Objective Patient ID: Héctor Pérez is a 53 y.o. male. Chief Complaint Annual Exam 53-year-old white male. Currently doing well. Active. Does smoke. Weight stable. Working full-time.No other complaints. Allergies as of 12/06/2018 ??? (No Known Allergies) Outpatient Encounter Medications as of 12/06/2018 Medication Sig Dispense Refill ??? arginine HCl, L-arginine, 1,000 mg tablet Take 1,000 mg by mouth daily ??? atorvastatin (LIPITOR) 20 mg tablet Take 20 mg by mouth daily ??? baclofen (LIORESAL) 10 mg tablet Take 10 mg by mouth daily ??? Cymro red pine bark extract (Serious [place]ody PINE BK EXT, BULK,) 95 % powder Take 80 mg by mouth daily ??? compounding vehicle susp no.19 (ORA-BLEND ORAL) Take 50 mg by mouth daily ??? folic acid (FOLVITE) 400 mcg tablet Take 400 mcg by mouth daily ??? gabapentin (NEURONTIN) 100 mg capsule Take 100 mg by mouth 3 (three) times a day ??? iron,carbonyl-vitamin C-FOS (CHEWABLE IRON) 30-10-25 mg tablet,chewable Take 30 mg by mouth daily ??? omega-3 fatty acids-fish oil (FISH OIL) 300-1,000 mg capsule Take 1,000 mg by mouth daily ??? PARoxetine (PAXIL) 20 mg tablet Take 1 tablet (20 mg total) by mouth every morning 90 tablet 3 ??? rOPINIRole (REQUIP) 2 mg tablet Take 2 mg by mouth daily 2 ??? traMADol (ULTRAM) 50 mg tablet Take 50 mg by mouth every 8 (eight) hours ??? [DISCONTINUED] PARoxetine (PAXIL) 20 mg tablet Take 1 tablet (20 mg total) by mouth every morning 90 tablet 0 No facility-administered encounter medications on file as of 12/06/2018. History reviewed. No pertinent past medical history. Past Surgical History: Procedure Laterality Date ??? EPIDURAL INJECTION LUMBOSACRAL N/A 12/25/2015 History reviewed. No pertinent family history. Social History Socioeconomic History ??? Marital status: Spouse name: None ??? Number of children: None ??? Years of education: None ??? Highest education level: None Occupational History ??? None Social Needs ??? Financial resource strain: None ??? Food insecurity: Worry: None Inability: None ??? Transportation needs: Medical: None Non-medical: None Tobacco Use ??? Smoking status: Never Smoker ??? Smokeless tobacco: Never Used Substance and Sexual Activity ??? Alcohol use: Never Frequency: Never ??? Drug use: None ??? Sexual activity: None Lifestyle ??? Physical activity: Days per week: None Minutes per session: None ??? Stress: None Relationships ??? Social connections: Talks on phone: None Gets together: None Attends baptist service: None Active member of club or organization: None Attends meetings of clubs or organizations: None Relationship status: None ??? Intimate partner violence: Fear of current or ex partner: None Emotionally abused: None Physically abused: None Forced sexual activity: None Other Topics Concern ??? None Social History Narrative ??? None Review of Systems Vitals: 12/06/18 1319 BP: 120/86 BP Location: Left arm Patient Position: Sitting Pulse: 82 Temp: 37.1 ??C (98.8 ??F) SpO2: 98% Weight: 106.9 kg (235 lb 9.6 oz) Height: 203.2 cm (6' 8 ) Physical Exam Exam performed clothed PHQ Screening No exam data present Assessment/Plan Diagnoses and all orders for this visit: Annual physical exam (Primary) - CBC with auto differential; Future - Comprehensive metabolic panel; Future - Lipid panel; Future - PSA screen; Future Other orders - PARoxetine (PAXIL) 20 mg tablet; Take 1 tablet (20 mg total) by mouth every morning Orders Placed This Encounter ??? CBC with auto differential Standing Status: Future Number of Occurrences: 1 Standing Expiration Date: 12/07/2019 ??? Comprehensive metabolic panel Standing Status: Future Number of Occurrences: 1 Standing Expiration Date: 12/07/2019 Order Specific Question: Has the patient fasted? Answer: No ??? Lipid panel Standing Status: Future Number of Occurrences: 1 Standing Expiration Date: 12/07/2019 Order Specific Question: Has the patient been fasting for 8 hours or more? Answer: No ??? PSA screen Standing Status: Future Number of Occurrences: 1 Standing Expiration Date: 12/07/2019 ??? PARoxetine (PAXIL) 20 mg tablet Sig: Take 1 tablet (20 mg total) by mouth every morning Dispense: 90 tablet Refill: 3 -non-smoker -Exercise: yes -colonoscopy: UTD -shingles: rec -Pneumococcal 13 and 23:65 -specialist: -mammogram: -bone density: -pap: -PSA: 2019 -recommended annual dental and eye visits -Limit calorie intake, sodas, fast/junk/processed food, fatty and fried foods Specific topics reviewed: importance of regular dental care, importance of regular exercise, importance of varied diet, minimize junk food and testicular self-exam. Edgar Mckeon MD documented in this encounter Plan of Treatment Scheduled Orders Name Type Priority Associated Diagnoses Orde r Schedule CBC with auto differential Lab Routine Annual physical exam Expected: 12/06/2018, Expires: 12/07/2019 Comprehensive metabolic panel Lab Routine Annual physical exam Expected: 12/06/2018, Expires: 12/07/2019 Lipid panel Lab Routine Annual physical exam Expected: 12/06/2018, Expires: 12/07/2019 PSA screen Lab Routine Annual physical exam Expected: 12/06/2018, Expires: 12/07/2019 documented as of this encounter Visit Diagnoses Diagnosis Annual physical exam- Primary Routine general medical examination at a health care facility documented in this encounter Discontinued Medications Medication Sig Discontinue Reason Start Date End Da te PARoxetine (PAXIL) 20 mg tablet Take 1 tablet (20 mg total) by mouth every morning Reorder 12/03/2018 12/06/2018 documented as of this encounter Historical Medications * This list may reflect changes made after this encounter. gabapentin (NEURONTIN) 100 mg capsule Take 100 mg by mouth 3 (three) times a day 12/06/2019 Cymro red pine bark extract (MAURITIAN RED PINE BK EXT, BULK,) 95 % powder Take 80 mg by mouth daily 08/31/2020 iron,carbonyl-vit guajardo C-FOS (CHEWABLE IRON) 30-10-25 mg tablet,chewable Take 30 mg by mouth daily 12/06/2019 compounding vehicle susp no.19 (ORA-BLEND ORAL) Take 50 mg by mouth daily 12/06/2019 arginine HCl, L-arginine, 1,000 mg tablet Take 1,000 mg by mouth daily 08/31/2020 folic acid (FOLVITE) 400 mcg tablet Take 400 mcg by mouth daily 12/06/2019 traMADol (ULTRAM) 50 mg tablet Take 50 mg by mouth every 8 (eight) hours 11/05/2015 12/06/2019 rOPINIRole (REQUIP) 2 mg tablet Take 3 mg by mouth daily 2 12/01/2018 08/31/2020 omega-3 fatty acids-fish oil (FISH OIL) 300-1,000 mg capsule Take 1,000 mg by mouth daily 12/06/2019 baclofen (LIORESAL) 10 mg tablet Take 10 mg by mouth daily as needed 12/13/2015 12/06/2019 atorvastatin (LIPITOR) 20 mg tablet Take 20 mg by mouth daily 12/09/2018 added in this encounter Care Teams Manager Of Revenue Relationship Specialty Start Date End Date Edgar Mckeon MD PCP - General 05/04/17 documented as of this encounter
--- OUTSIDE RECORDS SUMMARY | 2024-02-23 15:06 | XMS_ITS | Encounter Summary ---
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 Hospital Encounter [facility] Trevor Jarvis MD [address] [facility] [address] [address] Social History Tobacco Use Types Packs/Day Years Used Date Smoking Tobacco: Never Assessed Sex and Gender Information Value Date Recorded Sex Assigned at Not on file 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 Gender Identity Not on file Sexual Orientation Not on file documented as of this encounter Last Filed Vital Signs Vital Sign Reading Time Taken Comments Blood Pressure - - Pulse - - Temperature - - Respiratory Rate - - Oxygen Saturation - - Inhaled Oxygen Concentration - - Weight 103.4 kg (228 lb) 06/19/2015 9:03 AM CDT Height - - Body Mass Index 25.05 12/06/2013 9:13 AM CDT documented in this encounter Medications at Time of Discharge baclofen (LIORESAL) 10 mg tablet Take 10 mg by mouth daily as needed 12/13/2015 12/06/2019 traMADol (ULTRAM) 50 mg tablet Take 50 mg by mouth every 8 (eight) hours 11/05/2015 12/06/2019 documented as of this encounter Plan of Treatment Not on file documented as of this encounter Visit Diagnoses Not on filedocumented in this encounter
--- OUTSIDE RECORDS SUMMARY | 2024-02-23 15:06 | XMS_ITS | Encounter Summary ---
Author Organization [facility] Care Team Providers Care Clerk Entry Level Name Role Phone Unavailable Primary Care Provider Unavailabl e Encounter Details Date Type Department Care Team (Latest Contact Info) Description 12/25/2015 1:08 PM CDT - 12/25/2015 11:59 PM CDT Hospital [facility] Brad Moreno MD [address] [place] [address] Other chronic pain; Intervertebral disc disorder with radiculopathy of lumbar region; Other care home (current) drug therapy Social History Tobacco Use Types Packs/Day Years Used Date Smoking Tobacco: Never Assessed Sex and Gender Information Value Date Recorded Sex Assigned at Not on file 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
--- OUTSIDE RECORDS SUMMARY | 2024-02-23 15:06 | XMS_ITS | Encounter Summary ---
Author Organization [facility] Care Team Providers Care Manager Channel Name Role Phone Unavailable Primary Care Provider Onesimo e Encounter Details Date Type Department Care Team (Latest Contact Info) Description 01/29/2016 8:44 AM CORPORATE SALES TRAINER - 01/29/2016 11:59 PM CORPORATE SALES TRAINER Hospital Encounter [facility] Héctor Hicks MD Encounter for preprocedural laboratory examination; Radiculopathy of lumbar region; Obstructive sleep apnea; Osteoarthritis; Hyperlipidemia; Major depressive disorder, single episode; Other director long term care (current) drug therapy Social History Tobacco Use Types Packs/Day Years Used Date Smoking Tobacco: Never Assessed Sex and Gender Information Value Date Recorded Sex Assigned at Not on file 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 Gender Identity Not on file Sexual Orientation [...] Procedure Name Priority Date/Time Associated Diagnosis Comments PLASMA PROTHROMBIN TIME (PT) Routine 01/29/2016 9:50 AM CORPORATE SALES TRAINER PLASMA COMPREHENSIVE METABOLIC PANEL Routine 01/29/2016 9:50 AM CORPORATE SALES TRAINER BLOOD CELL COUNT Routine 01/29/2016 9:50 AM CORPORATE SALES TRAINER URINALYSIS Routine 01/29/2016 9:50 AM CORPORATE SALES TRAINER BLOOD ABO, RH, INDIRECT AB SCREEN Routine 01/29/2016 9:50 AM CORPORATE SALES TRAINER DISCHARGE LABORATORY CUMULATIVE REPORT 01/29/2016 documented in this encounter Results * Blood ABO, Rh, indirect ab screen (01/29/2016 9:50 AM CORPORATE SALES TRAINER) ABO, Rho(D) A Positive CDR HIS TORICAL RESULTS Onel, indirect Negative CDR HISTORICAL RESULTS Blood specimen (specimen) 01/29/2016 9:50 AM CORPORATE SALES TRAINER Héctor Epstein MD LAB BLOOD ORDERABLES Final Result Performing Organization Address [facility] Phone Number CDR HISTORICAL RESULTS * (ABNORMAL) Urinalysis (01/29/2016 9:50 AM CORPORATE SALES TRAINER) Color, ur Yellow Yellow CDR HISTOR ICAL RESULTS Clarity, ur Clear Clear CDR HIST ORICAL RESULTS Specific gravity, ur 1.019 1.003 - 1.030 CDR HISTORICAL RESULTS pH, ur 6.0 5.0 - 8.0 CDR HISTOR ICAL RESULTS Protein, ur Negative Trace CDR HIST ORICAL RESULTS Glucose, ur Negative Negative CDR HIST ORICAL RESULTS Ketones, ur Negative Negative CDR HIST ORICAL RESULTS Bilirubin, ur Negative Negative CDR HI STORICAL RESULTS U Blood Negative Negative CDR HISTOR ICAL RESULTS Urobilinogen, quant, ur 2.0(A) <2.0 mg/dl CDR HISTORICAL RESULTS Nitrites, ur Negative Negative CDR HIS TORICAL RESULTS Leukocyte esterase, ur Negative Negative CDR HISTORICAL RESULTS Urine 01/29/2016 9:50 AM CORPORATE SALES TRAINER Héctor Epstein MD LAB BLOOD ORDERABLES Final Result Performing Organization Address [facility] Phone Number CDR HISTORICAL RESULTS * (ABNORMAL) Plasma comprehensive metabolic panel (01/29/2016 9:50 AM CORPORATE SALES TRAINER) Sodium 139 135 - 145 mmol/L CDR HISTORICAL RESULTS K, pl 4.5 3.3 - 4.9 mmol/L CDR HISTORICAL RESULTS Chloride 102 97 - 110 mmol/L CDR HISTORICAL RESULTS CO2 30 22 - 32 mmol/L CDR HISTORICAL RESULTS A. gap 7 2 - 15 mmol/L CDR HISTORICAL RESULTS Glucose 103 70 - 199 mg/dl CDR HISTORICAL RESULTS BUN 14 8 - 25 mg/dl CDR HISTORICAL RESULTS Creatinine 1.32(H) 0.80 - 1.30 mg/dl CDR HISTORICAL RESULTS Calcium 10.0 8.5 - 10.3 mg/dl CDR HISTORICAL RESULTS Protein, pl 7.4 6.5 - 8.5 g/dl CDR HISTORICAL RESULTS Alb 4.6 3.5 - 5.0 g/dl CDR HISTORICAL RESULTS Bilirubin 1.1 0.1 - 1.2 mg/dl CDR HISTORICAL RESULTS Alk phos 50 40 - 130 Units/L CDR HISTORICAL RESULTS AST 28 10 - 50 Units/L CDR HISTORICAL RESULTS ALT 25 7 - 55 Units/L CDR HISTORICAL RESULTS Plasma 01/29/2016 9:50 AM CORPORATE SALES TRAINER Héctor Epstein MD LAB BLOOD ORDERABLES Final Result CDR HISTORICAL RESULTS * Plasma prothrombin time (PT) (01/29/2016 9:50 AM CORPORATE SALES TRAINER) Prothrombin time (PT) 11.7 9.2 - 14.0 seconds CDR HISTORICAL RESULTS INR 1.03 0.81 - 1.22 CDR HIST ORICAL RESULTS Comment: Interpretive Data Inpatient therapeutic ranges* Atrial fibrillation ?2.0-3.0 INR Venous thrombo-embolism ?2.0-3.0 INR Bioprosthetic heart valve ?* Mechanical heart valve, bileaflet or tilting disk,aortic position ? 2.0-3.0 INR All other,or bileaflet or tilting disk, in mitral position ? 2.5-3.5 INR *See the pharmacy resource directory (PHRED) for an updated copy of the Tool Book at [email or web address].nsf Current Interpretive Data was last revised 2011. Plasma 01/29/2016 9:50 AM CORPORATE SALES TRAINER Héctor Epstein MD LAB BLOOD ORDERABLES Final Result CDR HISTORICAL RESULTS * Blood cell count [CBC] express (01/29/2016 9:50 AM CORPORATE SALES TRAINER) WBC 4.4 3.8 - 9.9 K/cumm CDR HISTORICAL RESULTS RBC 4.65 4.30 - 5.80 M/cumm CDR HISTORICAL RESULTS Hgb 14.5 13.0 - 17.5 g/dl CDR HISTORICAL RESULTS Hct 42.2 38.9 - 50.3 % CDR HISTORICAL RESULTS MCV 90.8 81.3 - 96.4 fl CDR HISTORICAL RESULTS MCH 31.2 27.1 - 33.3 pg CDR HISTORICAL RESULTS MCHC 34.4 32.3 - 35.7 g/dl CDR HISTORICAL RESULTS Rdw 11.9 11.1 - 14.9 % CDR HISTORICAL RESULTS RDW 39.3 35.7 - 48.1 fl CDR HISTORICAL RESULTS NRBC 0.0 0.0 - 0.2 % CDR HIST ORICAL RESULTS NRBC, abs 0.00 0.00 - 0.01 K/cumm CDR HISTORICAL RESULTS Platelets 195 150 - 400 K/cumm CDR HISTORICAL RESULTS MPV 9.7 9.1 - 12.3 fl CDR HISTORICAL RESULTS Blood specimen (specimen) 01/29/2016 9:50 AM CORPORATE SALES TRAINER Héctor Epstein MD LAB BLOOD ORDERABLES Final Result CDR HISTORICAL RESULTS * DISCHARGE LABORATORY CUMULATIVE REPORT (01/29/2016) Narrative 01/29/2016 Ordered by an unspecified provider. Historical Provider LAB BLOOD ORDERABLES Xiomara l Result documented in this encounter Visit Diagnoses Diagnosis Encounter for preprocedural laboratory examination Radiculopathy of lumbar region Obstructive sleep apnea Obstructive sleep apnea (adult) (pediatric) Osteoarthritis Osteoarthrosis, unspecified whether generalized or localized, unspecified site Hyperlipidemia Other and unspecified hyperlipidemia Major depressive disorder, single episode Major depressive disorder, single episode, unspecified Other director long term care (current) drug therapy documented in this encounter
--- OUTSIDE RECORDS SUMMARY | 2024-02-23 15:06 | XMS_ITS | Encounter Summary ---
Author Organization [facility] Healthcare Address [address] [place] [address] Care Team Providers Care Electrical Project Manager Name Role Phone Edgar Mckeon MD Primary Care Provider [phone] Encounter Details Date Type Department Care Team (Late st Contact Info) Description 06/09/2017 10:30 AM CDT - 07/06/2018 11:59 PM CDT Hospital Encounter [facility] Trevor Maldonado MD [address] [facility] [address] [address] Social History Tobacco Use Types Packs/Day Years Used Date Smoking Tobacco: Never Assessed Sex and Gender Information Value Date Recorded Sex Assigned at Not on file 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 Gender Identity Not on file Sexual Orientation Not on file documented as of this encounter Last Filed Vital Signs Vital Sign Reading Time Taken Comments Blood Pressure - - Pulse - - Temperature - - Respiratory Rate - - Oxygen Saturation - - Inhaled Oxygen Concentration - - Weight 103.9 kg (229 lb) 06/09/2017 10:55 AM CDT Height - - Body Mass Index 25.16 06/30/2016 1:45 PM CDT documented in this encounter Medications at [...] on filedocumented in this encounter Care Teams Electrical Project Manager Relationship Specialty Start Date End Date Edgar Mckeon MD PCP - General 05/04/17 documented as of this encounter
--- OUTSIDE RECORDS SUMMARY | 2024-02-23 15:06 | XMS_ITS | Encounter Summary ---
Author Organization [facility] Address [address] [place] [address] Care Team Providers Care Reservations And Ticketing Agent Name Role Phone Edgar Mckeon MD Primary Care Provider [phone] Reason for Visit * Reason Onset Date Comments Med Refill 12/08/2018 Encounter Details Date Type Department Care Team (Late st Contact Info) Description 12/08/2018 Telephone [facility] Family Medicine [address] [place] [address] Edgar Mckeon MD [address] [place] [address] [address] [place] [address] Med Refill Social History Tobacco Use Types Packs/Day Years [...] on file 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 ECW did show 40mg * Telephone Encounter - Fernanda Chua, RN - 12/08/2018 9:14 PM CDT 90 days atorvastatin 40mg Med list says 20mg? documented in this encounter Plan of Treatment Not on file documented as of this encounter Visit Diagnoses Not on filedocumented in this encounter Discontinued Medications Medication Sig Discontinue Reason Start Date End Da te atorvastatin (LIPITOR) 20 mg tablet Take 20 mg by mouth daily Reorder 12/09/2018 documented as of this encounter Care Teams Reservations And Ticketing Agent Relationship Specialty Start Date End Date Edgar Mckeon MD PCP - General 05/04/17 documented as of this encounter
--- OUTSIDE RECORDS SUMMARY | 2024-02-23 15:06 | XMS_ITS | Encounter Summary ---
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 Gender Identity Not on file Sexual Orientation Not on file documented as of this encounter Medications at Time of Discharge arginine HCl, L-arginine, 1,000 mg tablet Take 1,000 mg by mouth daily 08/31/2020 atorvastatin (LIPITOR) 40 mg tablet Take 1 tablet (40 mg total) by mouth daily 90 tablet 1 12/09/2018 11/25/2019 baclofen (LIORESAL) 10 mg tablet Take 10 mg by mouth daily as needed 12/13/2015 12/06/2019 [place] red pine bark extract (ESTEE [place] PINE BK EXT, BULK,) 95 % powder Take 80 mg by mouth daily 08/31/2020 compounding vehicle susp no.19 (ORA-BLEND ORAL) Take 50 mg by mouth daily 12/06/2019 folic acid (FOLVITE) 400 mcg tablet Take 400 mcg by mouth daily 12/06/2019 gabapentin (NEURONTIN) 100 mg capsule Take 100 mg by mouth 3 (three) times a day 12/06/2019 iron,carbonyl-vit guajardo C-FOS (CHEWABLE IRON) 30-10-25 mg tablet,chewable Take 30 mg by mouth daily 12/06/2019 omega-3 fatty acids-fish oil (FISH OIL) 300-1,000 mg capsule Take 1,000 mg by mouth daily 12/06/2019 PARoxetine (PAXIL) 20 mg tablet Take 1 tablet (20 mg total) by mouth every morning 90 tablet 3 12/06/2018 12/06/2019 rOPINIRole (REQUIP) 2 mg tablet Take 3 mg by mouth daily 2 12/01/2018 08/31/2020 traMADol (ULTRAM) 50 mg tablet Take 50 mg by mouth every 8 (eight) hours 11/05/2015 12/06/2019 documented as of this encounter Plan of Treatment Not on file documented as of this encounter Visit Diagnoses Not on filedocumented in this encounter Care Teams Environmental Services Project Manager Relationship Specialty Start Date End Date Edgar Mckeon MD PCP - General 05/04/17 documented as of this encounter
--- OUTSIDE RECORDS SUMMARY | 2024-02-23 15:06 | XMS_ITS | Encounter Summary ---
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
--- OUTSIDE RECORDS SUMMARY | 2024-02-23 15:06 | XMS_ITS | Encounter Summary ---
Author Organization [facility] Facility Care Team Providers Care Director Of [employer] Name Role Phone Unavailable Primary Care Provider Onesimo e Encounter Details Date Type Department Care Team (Latest Contact Info) Description 11/13/2015 8:36 AM CDT - 11/13/2015 11:59 PM CDT Hospital [facility] Héctor Hicks MD Other intervertebral disc degeneration, lumbosacral region; Spondylolisthesis of lumbar region Social History Tobacco Use Types Packs/Day Years Used Date Smoking Tobacco: Never Assessed Sex and Gender Information Value Date Recorded Sex Assigned at Not on file 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 Gender Identity Not on file Sexual Orientation Not on file documented as of this encounter Medications at Time of Discharge traMADol (ULTRAM) 50 mg tablet Take 50 mg by mouth every 8 (eight) hours 11/05/2015 12/06/2019 documented as of this encounter Plan of Treatment Not on file documented as of this encounter Procedures Procedure Name Priority Date/Time Associated Diagnosis Comments XR SPINE LUMBAR ROUTINE Routine 11/13/2015 9:04 AM CDT documented in this encounter Results * XR Lumbar Spine Routine (11/13/2015 9:04 AM CDT) Anatomical Region Laterality Modality L-spine N/A Radiographic Cheyenne ging 11/13/2015 9:04 AM CDT Narrative 11/13/2015 9:13 AM CDT ELENA GRIGGS MD FINAL REPORT ACC# ??Date Time ??Exam [id number] Nov 13, 2015 09:04:00 [id number] Spine Lumbar min 4 views EXAMINATION: ?Lumbar spine minimum 4 views HISTORY: ??Back pain FINDINGS: ?? Four views of the lumbar spine were obtained without comparison. There is mild dextroconvex scoliosis of the lumbar spine centered at L3. Vertebral body heights are normal. There is minimal retrolisthesis of L2 on L3. There is no change in alignment on the flexion or extension views. There is mild multilevel degenerative disc disease at L1-L2 and L5-S1. IMPRESSION: ?? 1. Mild multilevel degenerative this disease at L1-L2 and L5-S1. 2. Minimal retrolisthesis of L2 on L3 with no change on the flexion or extension views. Requested By: Dictated By: ?? ELENA GRIGGS MD ??on Nov ??2015 ??9:13A This document has been electronically signed by: ELENA GRIGGS MD on Nov ?? 2015 ??9:13A [id number] Procedure Note Provider, MD Mook - 07/05/2016 ELENA GRIGGS MD FINAL REPORT ACC# Date Time Exam [id number] Nov 13, 2015 09:04:00 [id number] Spine Lumbar min 4 views EXAMINATION: Lumbar spine minimum 4 views HISTORY: Back pain FINDINGS: Four views of the lumbar spine were obtained without comparison. There is mild dextroconvex scoliosis of the lumbar spine centered at L3. Vertebral body heights are normal. There is minimal retrolisthesis of L2 on L3. There is no change in alignment on the flexion or extension views. There is mild multilevel degenerative disc disease at L1-L2 and L5-S1. IMPRESSION: 1. Mild multilevel degenerative this disease at L1-L2 and L5-S1. 2. Minimal retrolisthesis of L2 on L3 with no change on the flexion or extension views. Requested By: Dictated By: ELENA GRIGGS MD on Nov 13 2015 9:13A This document has been electronically signed by: ELENA GRIGGS MD on Nov 13 2015 9:13A [id number] us Historical Provider IMCinda XR PROCEDURES Final R esult documented in this encounter Visit Diagnoses Diagnosis Other intervertebral disc degeneration, lumbosacral region Spondylolisthesis of lumbar region documented in this encounter
--- OUTSIDE RECORDS SUMMARY | 2024-02-23 15:06 | XMS_ITS | Encounter Summary ---
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 Historical Provider Final Res ult documented in this encounter Visit Diagnoses Not on filedocumented in this encounter Care Teams Reimbursement Analyst Relationship Specialty Start Date End Date Edgar Mckeon MD PCP - General 05/04/17 documented as of this encounter
--- OUTSIDE RECORDS SUMMARY | 2024-02-23 15:06 | XMS_ITS | Encounter Summary ---
Author Organization 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 Gender Identity Not on file Sexual Orientation Not on file documented as of this encounter Last Filed Vital Signs Vital Sign Reading Time Taken Comments Blood Pressure - - Pulse - - Temperature - - Respiratory Rate - - Oxygen Saturation 94% 08/31/2019 11:00 PM CDT Inhaled Oxygen Concentration - - Weight - - Height - - Body Mass Index - - documented in this encounter Medications at Time of Discharge arginine HCl, L-arginine, 1,000 mg tablet Take 1,000 mg by mouth daily 08/31/2020 atorvastatin (LIPITOR) 40 mg tablet Take 1 tablet (40 mg total) by mouth daily 90 tablet 1 12/09/2018 11/25/2019 baclofen (LIORESAL) 10 mg tablet Take 10 mg by mouth daily as needed 12/13/2015 12/06/2019 Beninese red pine bark extract (BELARUSIAN RED PINE BK EXT, BULK,) 95 % [...] 11/05/2015 12/06/2019 documented as of this encounter Discharge Disposition Disposition Code Departure Means Destination Discharge to home or self care documented in this encounter Plan of Treatment Not on file documented as of this encounter Procedures Procedure Name Priority Date/Time Associated Diagnosis Comments SLEEP LAB/STUDY - RESULT 09/03/2019 12:00 AM CDT documented in this encounter Results * SLEEP LAB/STUDY - RESULT (09/03/2019 12:00 AM CDT) Narrative 09/03/2019 12:00 AM CDT Ordered by an unspecified provider. us Historical Provider Final Res ult documented in this encounter Visit Diagnoses Not on filedocumented in this encounter Care Teams Dressing Room Attendant Relationship Specialty Start Date End Date Edgar Mckeon MD PCP - General 05/04/17 documented as of this encounter
--- OUTSIDE RECORDS SUMMARY | 2024-02-23 15:06 | XMS_ITS | Encounter Summary ---
Author Organization [facility] Facility Care Team Providers Care Furniture Detailer Name Role Phone Unavailable Primary Care Provider Onesimo e Encounter Details Date Type Department Care Team (Latest Contact Info) Description 02/18/2016 5:08 AM PIN DRAFTING MACHINE TENDER - 02/19/2016 10:20 AM PIN DRAFTING MACHINE TENDER [facility] Spinal stenosis of lumbar region; Other spondylosis with radiculopathy, lumbar region Social History Tobacco Use Types Packs/Day Years Used Date Smoking Tobacco: Never Assessed Sex and Gender Information Value Date Recorded Sex Assigned at Not on file Legal Sex Male 8:16 AM PIN DRAFTING MACHINE TENDER Gender Identity Not on file Sexual Orientation Not on file documented as of this encounter Last Filed Vital Signs Vital Sign Reading Time Taken Comments Blood Pressure 130/76 02/19/2016 8:00 AM PIN DRAFTING MACHINE TENDER Pulse 81 02/19/2016 8:00 AM PIN DRAFTING MACHINE TENDER Temperature - - Respiratory Rate - - Oxygen Saturation 94% 02/19/2016 4:47 AM PIN DRAFTING MACHINE TENDER Inhaled Oxygen Concentration - - Weight 102 kg (224 lb 15.7 oz) 02/18/2016 10:47 AM PIN DRAFTING MACHINE TENDER Height 200.7 cm (6' 7 ) 02/18/2016 10:47 AM PIN DRAFTING MACHINE TENDER Body Mass Index 25.34 02/18/2016 10:47 AM PIN DRAFTING MACHINE TENDER documented in this encounter Medications at Time of Discharge baclofen (LIORESAL) 10 mg tablet Take 10 mg by mouth daily as needed 12/13/2015 12/06/2019 traMADol (ULTRAM) 50 mg tablet Take 50 mg by mouth every 8 (eight) hours 11/05/2015 12/06/2019 documented as of this encounter Miscellaneous Notes * Op Note - Provider, Historical, MD - 02/18/2016 12:00 AM CST [facility] Patient: HÉCTOR PÉREZ Account: [id number] Room No: 218-A : 1965 Proc. Date: 02/18/2016 Surgeon: HÉCTOR GUEVARA M.D. Admit Date: 02/18/2016 Disch. Date: 02/19/2016 Patient Type: SDS OPERATIVE REPORT SURGEON Héctor Guevara M.D. COUNSELING DIRECTOR Trevor Hatfield MD ANESTHESIA General endotracheal tube intubation. PREOPERATIVE DIAGNOSES 1. L4-5 and L5-S1 spinal stenosis. 2. Left L5 and S1 radiculopathy. POSTOPERATIVE DIAGNOSES 1. L4-5 and L5-S1 spinal stenosis. 2. Left L5 and S1 radiculopathy. OPERATIVE PROCEDURE 1. L4-5 and L5-S1 laminectomy. 2. Left-sided L5 and S1 foraminotomies. INDICATIONS FOR PROCEDURE Mr. Pérez is a 50-year-old male who presented to me with new onset left leg radiculopathy in an L5 and S1 distribution. The patient has had several episodes over the years of a similar type that responded to conservative management. The patient had tried oral steroid pack, anti-inflammatories, as well as epidural steroid injections. However, his symptoms continued to persist and in fact were worsening. On imaging, the patient was found to have mild central stenosis at L4-5 and L5-S1 with left greater than right lateral recess foraminal stenosis at both levels. Additionally, there was a small extruded disk fragment that was compressing the S1 traversing nerve root at L5-S1. Given the findings, the patient was indicated for a laminectomy at L4 to S1 with foraminotomies on the left side and possible microdiskectomy. All reasonable risks and benefits were discussed with the patient including bleeding, infection, nerve root injury, spinal fluid leak, incomplete symptom relief, dysesthesias, paresthesias, need for eventual fusion, pars fracture, paralysis, DVT/PE, and . Understanding the risks, the patient was in agreement to proceed with surgery. OPERATIVE FINDINGS 1. Mild central stenosis with ligamentum flavum hypertrophy. 2. Left-sided L5 and S1 foraminal stenosis with no obvious extruded disk fragment compressing the left S1 nerve root. DESCRIPTION OF PROCEDURE On the day of surgery, the patient was met in the holding area by the operative and anesthesia teams. Informed consent was again reviewed with the patient and he was in agreement to proceed with surgery. The patient was then brought to the operating suite where general endotracheal tube intubation was performed on the patient's stretcher. The patient was then flipped prone onto the OSI with the Harmeet frame bed. His arms were placed above his head in a superman type position. All bony prominences were well- padded. The Harmeet frame was then elevated to allow for opening of interlaminar spaces. The back was then clipped of any overlying hair over the planned incision. The back was then prepped, marked, and draped in the usual sterile fashion and a time-out was performed according to hospital regulations, and 2 g of cefazolin were administered within 1 hour of incision time. At this point, 2 spinal needles were placed at the proposed site of our skin incision lateral to the midline and the C-arm was brought into the field. X-ray was taken and this confirmed appropriate placement of our skin incision. C-arm was then pushed to the head of the bed and maintained sterilely in the field. The needles were removed and a sterile Ioban drape was applied to the skin. The skin was then incised with a scalpel. Dissection was carried down with Bovie electrocautery until the fascia was identified. The fascia was then incised in the midline and the subperiosteal dissection was carried down along the spinous process and the lamina bilaterally of L4, L5, and the top of S1. Once the dissection was completed, a spinal needle was placed in the left L4-5 facet joint which confirmed that we were at the appropriate level. Once this was done, we set the deep retractors making sure that we could visualize all of the L4 and L5 lamina as well as the pars of L5 and L4. Using a Leksell rongeur, the interspinous ligament between L4 and L5 and L5 and S1 were removed. Following this, the entire spinous process of L5 was removed and the inferior half of L4 was removed. The Leksell rongeur was then used to thin down the lamina of all of L5 and the inferior half of L4. This was done and so we came to the top of the ligamentum flavum and were able to identify the epidural fat. Using an angled curette, the ligamentum was detached from the undersurface of the L5 lamina. Using a ferny for protection, the remaining L5 lamina was removed with 3 mm and 4 mm Kerrison punches. We proceeded from caudal to cranial. Once all of the central L5 lamina was removed, we turned attention to performing a similar decompression at the inferior half of the L4. Using an angled curette, the ligamentum was detached from the undersurface of the L4 lamina and was resected with the use of Kerrison punches. Once the central decompression was complete, attention was turned toward decompressing out toward the pedicle in the lateral recess and in the foramen. Using Kerrison rongeurs and protecting the dura, we removed all compressive ligamentum flavum in the lateral recess and performed a foraminotomy of the L5 and S1 nerve roots. Once we were satisfied on the right side, FloSeal powdered Gelfoam was placed in the gutter to achieve hemostasis. Additionally, any bleeding bone edges were stopped with the use of bone wax. Attention was then turned toward decompression of the left side. In a similar fashion, the ligamentum flavum and bony arthritis was removed from the midline out toward the pedicle of L5 and S1. This was performed with the use of Kerrison rongeurs. Additionally, we performed foraminotomies of the L5 and S1 nerve roots. At this point, there was no extrinsic compression of the traversing S1 nerve root. An angled nerve root retractor was introduced and the S1 nerve was gently retracted into the midline. A thorough examination was performed. However, there was no free extruded disk fragment that was found. Using a Burleson elevator, we confirmed that there was no compression around the left S1 nerve root. At this point, we felt that our decompression was adequate as there was no residual compression of any neural structures. Powdered Gelfoam was placed in the gutter, and then the wound was copiously irrigated with 1 L of bacitracin impregnated saline. The patties were removed and once more and inspection was made which confirmed that we were thoroughly decompressed. At this point, 1 g of vancomycin powder was placed within the wound and a deep Hemovac drain was brought out through the superior aspect of the incision. We then performed a layered closure of the wound with the deep fascia closed with #1 Vicryl sutures, subcutaneous tissues closed with 2-0 Vicryl, and a running 3-0 subcuticular Monocryl was done to close the final skin layer. The wound was then cleaned and dried and sterile application of Dermabond was performed. Once this was completely dry, sterile dressing consisting of 4x4s and Tegaderm was applied. Drapes were then removed, and the patient was flipped supine onto the stretcher where he was extubated. The patient was found to be moving all 4 extremities at the conclusion of the case. Patient was then taken stablely to the Postanesthesia Care Unit. SPECIMENS REMOVED Bone and ligamentum flavum. ESTIMATED BLOOD LOSS 100 mL. INTRAOPERATIVE FLUIDS Per the anesthesia record. COUNTS Sponge, instrument, and needle counts were correct at the end of the case. CONDITION ON DISCHARGE Stable. ATTESTATION OF PRESENCE The attending surgeon, Dr. Héctor Guevara, was present for the entirety of the case including opening and closing of the incision. Electronically Authenticated by: Héctor Guevara MD On 02/20/2016 06:19 AM PIN DRAFTING MACHINE TENDER Teressa ADAMSON/mukund TD: 02/18/2016 10:13 documented in this encounter Plan of Treatment Not on file documented as of this encounter Visit Diagnoses Diagnosis Spinal stenosis of lumbar region Other spondylosis with radiculopathy, lumbar region documented in this encounter
--- OUTSIDE RECORDS SUMMARY | 2024-02-23 15:06 | XMS_ITS | Encounter Summary ---
Author Organization [facility] Facility Care Team Providers Care Efficiency Expert Name Role Phone Unavailable Primary Care Provider Evelioabl e Encounter Details Date Type Department Care Team (Latest Contact Info) Description 11/13/2015 12:30 PM CDT - 12/13/2015 11:59 PM CDT Hospital Encounter [facility] Brad Smith MD [address] [place] [address] Radiculopathy of lumbar region; Other intervertebral disc displacement, lumbar region; Pain of left thigh Social History Tobacco Use Types Packs/Day Years Used Date Smoking Tobacco: Never Assessed Sex and Gender Information Value Date Recorded Sex Assigned at Not on file Legal Sex Male 8:16 AM FLEXO PRESS OPERATOR Gender Identity Not on file Sexual [...] Procedure Name Priority Date/Time Associated Diagnosis Comments SPINAL FLUOROSCOPIC PROCEDURE Routine 12/13/2015 11:19 AM CDT OUTSIDE NEURO CT MR REFERENCE Routine 11/13/2015 4:25 PM CDT SPINAL FLUOROSCOPIC PROCEDURE Routine 11/13/2015 2:05 PM CDT documented in this encounter Results * SPINAL FLUOROSCOPIC PROCEDURE (12/13/2015 11:19 AM CDT) Anatomical Region Laterality Modality N/A Radiographic Cheyenne ging 12/13/2015 11:1 9 AM CDT Narrative 12/14/2015 11:36 AM CDT This examination was converted from a legacy system and did not match a report, either due to it being a non-reportable examination, or a duplicate entry Procedure Note ProviderMook MD - 10/13/2016 This examination was converted from a legacy system and did not match areport, either due to it being a non-reportable examination, or aduplicate entry Historical Provider MD PEÑAG XR PROCEDURES Final R esult * OUTSIDE NEURO CT MR REFERENCE (11/13/2015 4:25 PM CDT) Anatomical Region Laterality Modality N/A Computed Tomogra phy 11/13/2015 4:2 5 PM CDT Narrative 11/13/2015 4:35 PM CDT OUTSIDE IMAGES SUCTION OPERATOR, FINAL REPORT ACC# ??Date Time ??Exam [id number] Nov 13, 2015 16:25:00 [id number] [facility] Neuro Reference EXAMINATION: ?? Images For Reference Purposes Only IMPRESSION: ?? These images are for Reference purposes only and have not been reviewed by [facility]. There will be no report generated by a [facility] Radiologist. Requested By: Dictated By: ?? OUTSIDE IMAGES SUCTION OPERATOR, ?? on Nov ??2015 ??4:35P This document has been electronically signed by: OUTSIDE IMAGES SUCTION OPERATOR, ??on Nov ??2015 ??4:35P [id number] Procedure Note ProviderMook MD - 07/05/2016 OUTSIDE IMAGES SUCTION OPERATOR, FINAL REPORT ACC# Date Time Exam [id number] Nov 13, 2015 16:25:00 [id number] [facility] Neuro Reference EXAMINATION: Images For Reference Purposes Only IMPRESSION: These images are for Reference purposes only and have not been reviewed by [facility]. There will be no report generated by a [facility] Radiologist. Requested By: Dictated By: OUTSIDE IMAGES SUCTION OPERATOR, on Nov 13 2015 4:35P This document has been electronically signed by: OUTSIDE IMAGES SUCTION OPERATOR, on Nov 13 2015 4:35P [id number] us Historical Provider MD FARR CT PROCEDURES Final R esult * SPINAL FLUOROSCOPIC PROCEDURE (11/13/2015 2:05 PM CDT) Anatomical Region Laterality Modality N/A Radiographic Cheyenne ging 11/13/2015 2:05 PM CDT Narrative 11/13/2015 2:07 PM CDT This examination was converted from a legacy system and did not match a report, either due to it being a non-reportable examination, or a duplicate entry Procedure Note Provider, MD Mook - 10/13/2016 This examination was converted from a legacy system and did not match areport, either due to it being a non-reportable examination, or aduplicate entry us Historical Provider MD FARR XR PROCEDURES Final R esult documented in this encounter Visit Diagnoses Diagnosis Radiculopathy of lumbar region Other intervertebral disc displacement, lumbar region Pain of left thigh documented in this encounter
--- OUTSIDE RECORDS SUMMARY | 2024-02-23 15:06 | XMS_ITS | Encounter Summary ---
Author Organization [facility] Healthcare Address [address] [place] [address] Care Team Providers Care Telephone Directory Deliverer Name Role Phone Unavailable Primary Care Provider Unavailabl e Encounter Details Date Type Department Care Team (Late st Contact Info) Description 02/05/2016 9:56 AM ENGINE BUILDER Hospital Encounter [facility] Héctor Barreto MD [address] [place] [address] Other specified abnormal findings of blood chemistry Social History Tobacco Use Types Packs/Day Years Used Date Smoking Tobacco: Never Assessed Sex and Gender Information Value Date Recorded Sex Assigned at Not on file Legal Sex Male 8:16 AM ENGINE BUILDER Gender Identity Not on file Sexual Orientation [...] Diagnosis Comments CBC WITH AUTO DIFFERENTIAL Routine 02/05/2016 10:19 AM ENGINE BUILDER BASIC METABOLIC PANEL Routine 02/05/2016 10:19 AM ENGINE BUILDER documented in this encounter Results * (ABNORMAL) CBC with auto differential (02/05/2016 10:19 AM ENGINE BUILDER) WBC 5.3 4.6 - 10.2 x10 3/ul 02/05/2016 11:04 AM [facility] HISTORICAL RESULTS RBC 4.67 4.11 - 5.71 x10 6/ul 02/05/2016 11:04 AM [facility] HISTORICAL RESULTS Hemoglobin 14.9 13.0 - 17.0 g/dl 02/05/2016 11:04 AM [facility] HISTORICAL RESULTS Hct 42.1 38.2 - 48.5 % 02/05/2016 11:04 AM [facility] HISTORICAL RESULTS MCV 90.1 80.0 - 97.0 fl 02/05/2016 11:04 AM [facility] HISTORICAL RESULTS MCH 31.9(H) 27.0 - 31.2 pg 02/05/2016 11:04 AM [facility] HISTORICAL RESULTS MCHC 35.4 31.8 - 35.4 g/dl 02/05/2016 11:04 AM [facility] HISTORICAL RESULTS RDW 12.0 11.6 - 14.8 % 02/05/2016 11:04 AM [facility] HISTORICAL RESULTS Plt Count 207 124 - 400 x10 3/ul 02/05/2016 11:04 AM [facility] HISTORICAL RESULTS MPV 9.9 7.4 - 10.4 fl 02/05/2016 11:04 AM [facility] HISTORICAL RESULTS Neut % 56.2 37.0 - 85.0 % 02/05/2016 11:04 AM [facility] HISTORICAL RESULTS Immature Gran % 0.2 0.0 - 3.0 % 02/05/2016 11:04 AM [facility] HISTORICAL RESULTS Lymph % 32.1 5.0 - 45.0 % 02/05/2016 11:04 AM [facility] HISTORICAL RESULTS [place] % 8.5 3.0 - 15.0 % 02/05/2016 11:04 AM [facility] HISTORICAL RESULTS Eos % 1.9 0.0 - 7.0 % 02/05/2016 11:04 AM [facility] HISTORICAL RESULTS Baso % 1.1 0.0 - 2.0 % 02/05/2016 11:04 AM [facility] HISTORICAL RESULTS Absolute Neuts (auto) 3.0 1.7 - 8.7 x10 3/ul Immature Gran # 0.0 0.0 - 0.3 x10 3/ul Absolute Lymphs (auto) 1.7 0.2 - 4.6 x10 3/ul Absolute Monos (auto) 0.5 0.1 - 1.5 x10 3/ul Absolute Eos (auto) 0.1 0.0 - 0.7 x10 3/ul Absolute Basos (auto) 0.1 0.0 - 0.2 x10 3/ul 02/05/2016 10:1 9 AM ENGINE BUILDER 02/05/2016 10:57 AM [facility] Héctor Barreto MD LAB BLOOD ORDERABLES F inal Result [facility] HISTORICAL RESULTS * (ABNORMAL) Basic metabolic panel (02/05/2016 10:19 AM [facility]) Sodium 140 135 - 145 mmol/L Potassium 4.6 3.3 - 5.1 mmol/L Chloride 102 96 - 108 mmol/L Carbon Dioxide 26 22 - 32 mmol/L Anion Gap 12 7 - 16 Glucose 107(H) 70 - 100 mg/dL BUN 20 6 - 20 mg/dL Creatinine 1.0 0.5 - 1.3 mg/dL Comment: NOTE: Estimated GFR (Cockroft-Gault) will NOT be calculated unless patient Height and Weight were entered. Also, Kidney Disease Stage (GFR) and Estimated GFR (Cockroft-Gault) will NOT be calculated if Creatinine result is <0.2. Kidney Disease Stage 84 mL/MIN Comment: NOTE; ??The GFR is an estimated [...] mL/min ? Kidney failure or on dialysis @ Calcium 9.5 8.6 - 10.0 mg/dL 02/05/2016 11:[facility] 02/05/2016 10:1 9 AM ENGINE BUILDER 02/05/2016 10:57 AM ENGINE BUILDER [facility] Héctor Barreto MD LAB BLOOD ORDERABLES F inal Result [facility] documented in this encounter Visit Diagnoses Diagnosis Other specified abnormal findings of blood chemistry documented in this encounter
--- OUTSIDE RECORDS SUMMARY | 2024-02-23 15:06 | XMS_ITS | Encounter Summary ---
Author Organization [facility] Address [address] [place] [address] Care Team Providers Care Curtain Hemmer Automatic Name Role Phone Edgar Mckeon MD Primary Care Provider [phone] Encounter Details Date Type Department Care Team (Late st Contact Info) Description 05/13/2019 Orders Only [facility] [address] [place] [address] Edgar Mckeon MD [address] [facility] [address] [address] Social History Tobacco Use Types Packs/Day Years [...] on file Legal Sex Male 8:16 AM RN QUALITY Gender Identity Not on file Sexual Orientation Not on file documented as of this encounter Progress Notes * Tuyet Wright LPN - 05/13/2019 11:59 PM CST No one else has addressed this, pt is changing his diet to get his BS down. His cholesterol has always been this way. Should pt take an OTC of vitamin d, he use to drink milk but does not drink it any more. documented in this encounter Plan of Treatment Not on file documented as of this encounter Procedures Procedure Name Priority Date/Time Associated Diagnosis Comments SCAN - LABS 05/13/2019 documented in this encounter Results * SCAN - LABS (05/13/2019) us Edgar Mckeon MD Final Result documented in this encounter Visit Diagnoses Not on filedocumented in this encounter Care Teams Curtain Hemmer Automatic Relationship Specialty Start Date End Date Edgar Mckeon MD PCP - General 05/04/17 documented as of this encounter
--- OUTSIDE RECORDS SUMMARY | 2024-02-23 15:06 | XMS_ITS | Encounter Summary ---
Author Organization [facility] Address [address] [place] [address] Care Team Providers Care Patient Transport Officer Name Role Phone Edgar Mckeon MD Primary Care Provider [phone] Reason for Visit * Reason Comments Annual Exam Encounter Details Date Type Department Care Team (Late st Contact Info) Description 12/06/2019 8:00 AM CDT Office Visit [facility] Family Medicine [address] [place] [address] Edgar Mckeon MD [address] [place] [address] [address] [place] [address] Annual physical exam (Primary Dx); Screening for prostate cancer Social History Tobacco [...] on file 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 Gender Identity Not on file Sexual Orientation Not on file documented as of this encounter Last Filed Vital Signs Vital Sign Reading Time Taken Comments Blood Pressure 118/72 12/06/2019 8:17 AM CDT Pulse 77 12/06/2019 8:17 AM CDT Temperature 36.8 ??C (98.2 ??F) 12/06/2019 8:17 AM CD T Respiratory Rate 18 12/06/2019 8:17 AM CDT Oxygen Saturation 97% 12/06/2019 8:17 AM CDT Inhaled Oxygen Concentration - - Weight 105.1 kg (231 lb 9.6 oz) 12/06/2019 8:17 AM CDT Height 203.2 cm (6' 8 ) 12/06/2019 8:17 AM CDT Body Mass Index 25.44 12/06/2019 8:17 AM CDT documented in this encounter Ordered Prescriptions Prescription Sig Dispense Quantity Refills Last Filled Start Date End Date atorvastatin (LIPITOR) 40 mg tablet Take 1 tablet (40 mg total) by mouth daily 90 tablet 3 12/06/2019 1 baclofen (LIORESAL) 10 mg tablet Take 1 tablet (10 mg total) by mouth daily as needed for muscle spasms 90 tablet 1 12/06/2019 4 PARoxetine (PAXIL) 20 mg tablet Take 1 tablet (20 mg total) by mouth every morning 90 tablet 3 12/06/2019 1 documented in this encounter Progress Notes * Edgar Mckeon MD - 12/06/2019 8:00 AM CDT Images from the original note were not included. Subjective/Objective Patient ID: Héctor Pérez is a 54 y.o. male. Chief Complaint Annual Exam Doing well Active Feels good Not sob no cp Allergies as of 12/06/2019 ??? (No Known Allergies) Outpatient Encounter Medications as of 12/06/2019 Medication Sig Dispense Refill ??? arginine HCl, L-arginine, 1,000 mg tablet Take 1,000 mg by mouth daily ??? atorvastatin (LIPITOR) 40 mg tablet Take 1 tablet (40 mg total) by mouth daily 90 tablet 3 ??? baclofen (LIORESAL) 10 mg tablet Take 1 tablet (10 mg total) by mouth daily as needed for muscle spasms 90 tablet 1 ??? Ivorian red pine bark extract (AMHARIC RED PINE BK EXT, BULK,) 95 % powder Take 80 mg by mouth daily ??? PARoxetine (PAXIL) 20 mg tablet Take 1 tablet (20 mg total) by mouth every morning 90 tablet 3 ??? rOPINIRole (REQUIP) 1 mg tablet TK 1 T PO QHS ??? rOPINIRole (REQUIP) 2 mg tablet Take 2 mg by mouth daily 2 ??? [DISCONTINUED] atorvastatin (LIPITOR) 40 mg tablet Take 1 tablet (40 mg total) by mouth daily 90 tablet 1 ??? [DISCONTINUED] baclofen (LIORESAL) 10 mg tablet Take 10 mg by mouth daily as needed ??? [DISCONTINUED] PARoxetine (PAXIL) 20 mg tablet Take 1 tablet (20 mg total) by mouth every morning 90 tablet 3 ??? [DISCONTINUED] compounding vehicle susp no.19 (ORA-BLEND ORAL) Take 50 mg by mouth daily ??? [DISCONTINUED] folic acid (FOLVITE) 400 mcg tablet Take 400 mcg by mouth daily ??? [DISCONTINUED] gabapentin (NEURONTIN) 100 mg capsule Take 100 mg by mouth 3 (three) times a day ??? [DISCONTINUED] iron,carbonyl-vitamin C-FOS (CHEWABLE IRON) 30-10-25 mg tablet,chewable Take 30 mg by mouth daily ??? [DISCONTINUED] omega-3 fatty acids-fish oil (FISH OIL) 300-1,000 mg capsule Take 1,000 mg by mouth daily ??? [DISCONTINUED] traMADol (ULTRAM) 50 mg tablet Take 50 mg by mouth every 8 (eight) hours No facility-administered encounter medications on file as of 12/06/2019. History reviewed. No pertinent past medical history. [...] ??? Financial resource strain: None ??? Food insecurity Worry: None Inability: None ??? Transportation needs Medical: None Non-medical: None Tobacco Use ??? Smoking status: Never Smoker ??? Smokeless tobacco: Never Used Substance and Sexual Activity ??? Alcohol use: Never Frequency: Never ??? Drug use: None ??? Sexual activity: None Lifestyle ??? Physical activity Days per week: None Minutes per session: None ??? Stress: None Relationships ??? Social connections Talks on phone: None Gets together: None Attends holiness service: None Active member of club or organization: None Attends meetings of clubs or organizations: None Relationship status: None ??? Intimate partner violence Fear of current or ex partner: None Emotionally abused: None Physically abused: None Forced sexual activity: None Other Topics Concern ??? None Social History Narrative ??? None Review of Systems Constitutional: Negative for fatigue and fever. Respiratory: Negative for cough and shortness of breath. Cardiovascular: Negative for chest pain and leg swelling. Gastrointestinal: Negative for abdominal pain and nausea. Musculoskeletal: Negative for back pain and neck pain. Neurological: Negative for seizures and headaches. Psychiatric/Behavioral: Negative for confusion. The patient is not nervous/anxious. Vitals: 12/06/19 0817 BP: 118/72 BP Location: Right arm Patient Position: Sitting Pulse: 77 Resp: 18 Temp: 36.8 ??C (98.2 ??F) TempSrc: Transdermal SpO2: 97% Weight: 105.1 kg (231 lb 9.6 oz) Height: 203.2 cm (6' 8 ) Physical Exam Constitutional: Appearance: He is well-developed. HENT: Head: Normocephalic and atraumatic. Eyes: Pupils: Pupils are equal, round, and reactive to light. Neck: Musculoskeletal: Full passive range of motion without pain, normal range of motion and neck supple. Cardiovascular: Rate and Rhythm: Normal rate and regular rhythm. Pulmonary: Effort: Pulmonary effort is normal. Breath sounds: Normal breath sounds. Abdominal: General: Bowel sounds are normal. Palpations: Abdomen is soft. Musculoskeletal: Normal range of motion. Skin: General: Skin is warm. Capillary Refill: Capillary refill takes less than 2 seconds. Neurological: Mental Status: He is alert and oriented to person, place, and time. Psychiatric: Speech: Speech normal. Exam performed clothed PHQ Screening Over the last 2 weeks, how often have you been bothered by any of the following problems? Little Interest or Pleasure in Doing Things: Not at all Feeling Down, Depressed, or Hopeless: Not at all PHQ-2 Total Score (If total score is 3 or more points, staff should administer the PHQ-9): 0 Over the past 2 weeks, how often have you been bothered by any of the following problems? Little Interest or Pleasure in Doing Things: Not at all Feeling Down, Depressed, or Hopeless: Not at all No exam data present Assessment/Plan Diagnoses and all orders for this visit: Annual physical exam (Primary) Other orders - PARoxetine (PAXIL) 20 mg tablet; Take 1 tablet (20 mg total) by mouth every morning - baclofen (LIORESAL) 10 mg tablet; Take 1 tablet (10 mg total) by mouth daily as needed for musclespasms - atorvastatin (LIPITOR) 40 mg tablet; Take 1 tablet (40 mg total) by mouth daily Orders Placed This Encounter ??? PARoxetine (PAXIL) 20 mg tablet Sig: Take 1 tablet (20 mg total) by mouth every morning Dispense: 90 tablet Refill: 3 ??? baclofen (LIORESAL) 10 mg tablet Sig: Take 1 tablet (10 mg total) by mouth daily as needed for muscle spasms Dispense: 90 tablet Refill: 1 ??? atorvastatin (LIPITOR) 40 mg tablet Sig: Take 1 tablet (40 mg total) by mouth daily Dispense: 90 tablet Refill: 3 Health and Wellness review -non-smoker -Exercise: YES -colonoscopy:UTD -shingles: rec -Pneumococcal 13 and 23:65 -Tetanus: UTD -specialist: PULM -labs 2019/ due -PSA: 2020 -recommended annual dental and eye visits -Limit calorie intake, sodas, fast/junk/processed food, fatty and fried foods -anticipatory guidance given, age appropriate, all reviewed Specific topics reviewed: drugs, ETOH, and tobacco, importance of regular dental care, importance of regular exercise, importance of varied diet, limit TV, media violence, minimize junk food, seat belts and testicular self-exam. Edgar Mckeon MD documented in this encounter Miscellaneous Notes * Addendum Note - Delores Aguayo Ma, MA - 12/06/2019 8:00 AM CDTAddended by: DELORES AGUAYO on: 12/06/2019 09:25 AM Modules accepted: Orders documented in this encounter Plan of Treatment Scheduled Orders Name Type Priority Associated Diagnoses Orde r Schedule CBC with auto differential Lab Routine Annual physical exam Expected: 12/06/2019, Expires: 12/05/2020 Comprehensive metabolic panel Lab Routine Annual physical exam Expected: 12/06/2019, Expires: 12/05/2020 Lipid panel Lab Routine Annual physical exam Expected: 12/06/2019, Expires: 12/05/2020 PSA screen Lab Routine Annual physical exam Screening for prostate cancer Expected: 12/06/2019, Expires: 12/05/2020 documented as of this encounter Visit Diagnoses Diagnosis Annual physical exam- Primary Routine general medical examination at a health care facility Screening for prostate cancer Special screening for malignant neoplasm of prostate documented in this encounter Discontinued Medications Medication Sig Discontinue Reason Start Date End Da te compounding vehicle susp no.19 (ORA-BLEND ORAL) Take 50 mg by mouth daily Therapy completed 12/06/2019 folic acid (FOLVITE) 400 mcg tablet Take 400 mcg by mouth daily Therapy completed 12/06/2019 gabapentin (NEURONTIN) 100 mg capsule Take 100 mg by mouth 3 (three) times a day Therapy completed 12/06/2019 iron,carbonyl-vitamin C-FOS (CHEWABLE IRON) 30-10-25 mg tablet,chewable Take 30 mg by mouth daily Therapy completed 12/06/2019 omega-3 fatty acids-fish oil (FISH OIL) 300-1,000 mg capsule Take 1,000 mg by mouth daily Therapy completed 12/06/2019 traMADol (ULTRAM) 50 mg tablet Take 50 mg by mouth every 8 (eight) hours Therapy completed 11/05/2015 12/06/2019 baclofen (LIORESAL) 10 mg tablet Take 10 mg by mouth daily as needed Reorder 12/13/2015 12/06/2019 PARoxetine (PAXIL) 20 mg tablet Take 1 tablet (20 mg total) by mouth every morning Reorder 12/06/2018 12/06/2019 atorvastatin (LIPITOR) 40 mg tablet Take 1 tablet (40 mg total) by mouth daily Reorder 11/25/2019 12/06/2019 documented as of this encounter Historical Medications * This list may reflect changes made after this encounter. rOPINIRole (REQUIP) 1 mg tablet TK 1 T PO QHS 11/30/2019 08/02/2020 added in this encounter Care Teams Patient Transport Officer Relationship Specialty Start Date End Date Edgar Mckeon MD PCP - General 05/04/17 documented as of this encounter
--- OUTSIDE RECORDS SUMMARY | 2024-02-23 15:06 | XMS_ITS | Encounter Summary ---
Author Organization 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 Historical Provider Final Res ult documented in this encounter Visit Diagnoses Not on filedocumented in this encounter Care Teams Metal And Plastic Heater Relationship Specialty Start Date End Date Edgar Mckeon MD PCP - General 05/04/17 documented as of this encounter
--- OUTSIDE RECORDS SUMMARY | 2024-02-23 15:06 | XMS_ITS | Encounter Summary ---
Author Organization 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 F FINAL REPORT ACC# ??Date Time ??Exam [id number] Mar 25, 2016 08:33:00 [id number] Spine Lumbar 2 or 3 views EXAMINATION: ?Lumbar spine 2 or 3 views HISTORY: ??Lumbar spondylosis FINDINGS: ?? Two views of the lumbar spine are submitted for interpretation and compared to the prior examination dated 11/13/2015. There is mild dextrocurvature in the lumbar spine. There has been interval posterior decompression at L4 and L5. There is mild degenerative disc disease from L4 through S1. There is no compression fracture. IMPRESSION: ?? Interval posterior decompression at L4 and L5. Requested By: HÉCTOR GUEVARA M.D. Dictated By: ?? VALERI BALES M.D. F ??on Mar 25 2016 ??8:38A This document has been electronically signed by: VALERI BALES M.D. F on Mar 25 2016 ??8:38A [id number] Procedure Note Provider, Mook, - 07/14/2016 Teressa BURGESS FINAL REPORT ACC# Date Time Exam [id number] Mar 25, 2016 08:33:00 [id number] Spine Lumbar 2 or 3 views EXAMINATION: Lumbar spine 2 or 3 views HISTORY: Lumbar spondylosis FINDINGS: Two views of the lumbar spine are submitted for interpretation and compared to the prior examination dated 11/13/2015. There is mild dextrocurvature in the lumbar spine. There has been interval posterior decompression at L4 and L5. There is mild degenerative disc disease from L4 through S1. There is no compression fracture. IMPRESSION: Interval posterior decompression at L4 and L5. Requested By: HÉCTOR GUEVARA M.D. Dictated By: Teressa BURGESS on Mar 25 2016 8:38A This document has been electronically signed by: Teressa BURGESS on Mar 25 2016 8:38A [id number] us Historical Provider MD FARR XR PROCEDURES Final R esult documented in this encounter Visit Diagnoses Diagnosis Low back pain Lumbago Radiculopathy of lumbar region documented in this encounter
--- OUTSIDE RECORDS SUMMARY | 2024-02-23 15:06 | XMS_ITS | Encounter Summary ---
Author Organization [facility] Address [address] [place] [address] Care Team Providers Care Premium Service Representative Name Role Phone Edgar Mckeon MD Primary Care Provider [phone] Reason for Visit * Reason Comments Memory Loss pt experienced white spots in vision, some memory loss and confusion. onset was last night. 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 Subjective/Objective Patient ID: Héctor Pérez is a 54 y.o. male. This was a telemedicine visit with Héctor Pérez alone which took place via real-time video connection with Zoom. During the visit, I was located at home and the patient was located at home. The patient visit started at 11:[address] [facility] and ended at 11:55 Pre charting time spent: Post Charting time spent: Review of labs and imaging time spent: The patient has been informed that the [...] responsible for any applicable copayments. Chief Complaint Memory Loss (pt experienced white spots in vision, some memory loss and confusion. onset was last night. ) 54 yo male Visual change, light Yesterday Little confusion Spell Cognition moving slow Expressive hard, words sounded fine 20 minutes Then resolved No etoh Is awake alert orient x3 tele medicine visit with . She confirms most story. Symptoms basicallyresolved. With little bogginess today. He is working. Vision is otherwise fine. Weight stable. No shortness of breath or chest pain. No COVID -19 exposure Nonsmoker Labs done in May 2019 all pretty normal Current Outpatient Medications Medication Sig Dispense Refill ??? arginine HCl, L-arginine, 1,000 mg tablet Take 1,000 mg by mouth daily ??? atorvastatin (LIPITOR) 40 mg tablet Take 1 tablet (40 mg total) by mouth daily 90 tablet 3 ??? baclofen (LIORESAL) 10 mg tablet Take 1 tablet (10 mg total) by mouth daily as needed for muscle spasms 90 tablet 1 ??? [place] red pine bark extract ([employer] RED PINE BK EXT, BULK,) 95 % powder Take 80 mg by mouth daily ??? PARoxetine (PAXIL) 20 mg tablet Take 1 tablet (20 mg total) by mouth every morning 90 tablet 3 ??? rOPINIRole (REQUIP) 1 mg tablet TK 1 T PO QHS ??? rOPINIRole (REQUIP) 2 mg tablet Take 2 mg by mouth daily 2 No current facility-administered medications for this visit. Review of Systems Constitutional: Negative for fatigue and fever. Eyes: Positive for visual disturbance. Respiratory: Negative for cough and shortness of breath. Cardiovascular: Negative for chest pain and leg swelling. Gastrointestinal: Negative for abdominal pain and nausea. Musculoskeletal: Negative for back pain and neck pain. Neurological: Negative for seizures and headaches. Psychiatric/Behavioral: Negative for confusion. The patient is not nervous/anxious. There were no vitals taken for this visit. Physical Exam Awake alert orient x3 ambulates fine heel to toe intact not sure breath Assessment/Plan Diagnoses and all orders for this visit: Episode of visual loss of both eyes (H53.123) (Primary) Speech delay, expressive (F80.1) Spell of altered cognition (R41.89) We discussed his current symptoms. Certainly sounds neurologic. Mostly resolved. Some fogginess today. He is not short of breath no chest pain no fever no respiratory symptoms We reviewed his labs from May 26 all pretty normal including testosterone thyroid PSA cholesterolblood sugar 110. Electrolytes unremarkable B12 little low at 325 Options of MRI as an outpatient which may take up to 1-2 weeks and aspirin daily I recommended ER visit. Order CT head, CBC Chem 12 lipid TSH, chest x-ray PA and lateral, EKG, and urinalysis I discussed case with ER He will be taken to [facility] We discussed diagnosis. Acute CVA, TIA, MS, other neurologic disorders, transient global amnesia, brain tumor and sed rate. Discussed at length answer questions recommended ER evaluation today No orders of the defined types were placed in this encounter. HING AIDE documented in this encounter Plan of Treatment Not on file documented as of this encounter Visit Diagnoses Diagnosis Episode of visual loss of both eyes- Primary Speech delay, expressive Spell of altered cognition documented in this encounter Care Teams Premium Service Representative Relationship Specialty Start Date End Date Edgar Mckeon MD PCP - General 05/04/17 documented as of this encounter
--- OUTSIDE RECORDS SUMMARY | 2024-02-23 15:06 | XMS_ITS | Encounter Summary ---
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 Gender Identity Not on file Sexual Orientation Not on file documented as of this encounter Last Filed Vital Signs Vital Sign Reading Time Taken Comments Blood Pressure - - Pulse - - Temperature - - Respiratory Rate - - Oxygen Saturation - - Inhaled Oxygen Concentration - - Weight 105.7 kg (233 lb) 09/15/2019 3:49 PM CDT Height 203.2 cm (6' 8 ) 09/15/2019 3:49 PM CDT Body Mass Index 25.6 09/15/2019 3:49 PM CDT documented in this encounter Medications at Time of Discharge arginine HCl, L-arginine, 1,000 mg tablet Take 1,000 mg by mouth daily 08/31/2020 atorvastatin (LIPITOR) 40 mg tablet Take 1 tablet (40 mg total) by mouth daily 90 tablet 1 12/09/2018 11/25/2019 baclofen (LIORESAL) 10 mg tablet Take 10 mg by mouth daily as needed 12/13/2015 12/06/2019 [place] red pine bark extract ([place] PINE BK EXT, BULK,) 95 % powder [...] on filedocumented in this encounter Care Teams Biztalk Software Developer Relationship Specialty Start Date End Date Edgar Mckeon MD PCP - General 05/04/17 documented as of this encounter
--- OUTSIDE RECORDS SUMMARY | 2024-02-23 15:06 | XMS_ITS | Encounter Summary ---
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 us Historical Provider Final Res ult * COVID-19 Coronavirus RNA (08/29/2019 11:48 AM CDT) COVID-19 Coronavirus RNA NOT DETECTED [facility] Comment: A negative result does not rule out the possibility of COVID-19 and should not be used as the sole basis for patient management decisions. Coronavirus (COVID-19) Interp SEE COMMENT [facility] Coronavirus (COVID-19) Results called to TNP [facility] Misc Performing Lab [facility] 08/29/2019 11:4 8 AM CDT 08/30/2019 4:25 PM CDT Narrative Resulting Agency Comment CLI us Trevor Maldonado MD LAB MICROBIOLOGY - GENERA L ORDERABLES Final Result [facility] [address] [phone] documented in this encounter Visit Diagnoses Not on filedocumented in this encounter Care Teams Readers' Advisory Service Librarian Relationship Specialty Start Date End Date Edgar Mckeon MD PCP - General 05/04/17 documented as of this encounter
--- OUTSIDE RECORDS SUMMARY | 2024-02-23 15:06 | XMS_ITS | Encounter Summary ---
Author Organization [facility] Address [address] [place] [address] Care Team Providers Care Distribution System Operator Name Role Phone Edgar Mckeon MD Primary Care Provider [phone] Reason for Visit * Reason Onset Date Comments Med Refill 12/02/2018 Refill on Paroxe rosalinda Encounter Details Date Type Department Care Team (Late st Contact Info) Description 12/02/2018 Telephone [facility] Family Medicine [address] [place] [address] Edgar Mckeon MD [address] [place] [address] Med Refill (Refill on Paroxetine) Social History Tobacco Use Types Packs/Day Years Used Date Smoking Tobacco: Never Assessed Sex and Gender Information Value Date Recorded Sex Assigned at Not on file 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 Gender Identity Not on file Sexual Orientation Not on file documented as of this encounter Ordered Prescriptions Prescription Sig Dispense Quantity Refills Last Filled Start Date End Date PARoxetine (PAXIL) 20 mg tablet Take 1 tablet (20 mg total) by mouth every morning 90 tablet 12/03/2018 9 documented in this encounter Miscellaneous Notes * Telephone Encounter - Nella Aranda PA - 12/03/2018 11:37 AM CDT sent * Telephone Encounter - Lauren Madden MA - 12/03/2018 11:12 AM CDT Appt 12/06/18 * Telephone Encounter - Sumaya Ayoub MA - 12/02/2018 5:22 PM CDT Left a message for pt to give the office a call back to schedule an appt. * Telephone Encounter - Lauren Madden MA - 12/02/2018 4:48 PM CDT Refill on Paroxetine 20mg 1 po in the am #90 documented in this encounter Plan of Treatment Not on file documented as of this encounter Visit Diagnoses Not on filedocumented in this encounter Discontinued Medications Medication Sig Discontinue Reason Start Date End Da te PARoxetine (PAXIL) 20 mg tablet Rx: Paroxetine HCl 20 Tablet, TAKE: TAKE 1 TABLET BY MOUTH ONCE A DAY IN THE MORNING, REFILLS: 1 Reorder 12/03/2018 documented as of this encounter Historical Medications * This list may reflect changes made after this encounter. PARoxetine (PAXIL) 20 mg tablet Rx: Paroxetine HCl 20 Tablet, TAKE: TAKE 1 TABLET BY MOUTH ONCE A DAY IN THE MORNING, REFILLS: 1 9 added in this encounter Care Teams Distribution System Operator Relationship Specialty Start Date End Date Edgar Mckeon MD PCP - General 05/04/17 documented as of this encounter
--- OUTSIDE RECORDS SUMMARY | 2024-02-23 15:07 | XMS_ITS | Encounter Summary ---
Author Organization [facility] Healthcare Address [address] [place] [address] Care Team Providers Care Building Materials Sales Attendant Name Role Phone Unavailable Primary Care Provider Unavailabl e Encounter Details Date Type Department Care Team (Latest Contact Info) Description 08/03/2013 9:29 PM CDT - 08/04/2013 12:41 AM CDT Hospital Encounter [facility] Destiney Durbin, HOME CARE AIDE [address] [place], [place] [id number] Chest pain; Disturbance of skin sensation; Dizziness and giddiness; Headache; Encounter for long-term (current) use of other medications Social History Tobacco Use Types Packs/Day Years Used Date Smoking Tobacco: Never Assessed Sex and Gender Information Value Date Recorded Sex Assigned at Not on file 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 Gender Identity Not on file Sexual Orientation Not on file documented as of this encounter Last Filed Vital Signs Vital Sign Reading Time Taken Comments Blood Pressure 132/76 08/03/2013 9:47 PM CDT Pulse 60 08/03/2013 9:47 PM CDT Temperature 36.6 ??C (97.8 ??F) 08/03/2013 9:47 PM CD T Respiratory Rate - - Oxygen Saturation 98% 08/03/2013 9:47 PM CDT Inhaled Oxygen Concentration - - Weight 99.8 kg (220 lb) 08/03/2013 9:47 PM CDT Height 203.2 cm (6' 8 ) 08/03/2013 9:47 PM CDT Body Mass Index 24.17 08/03/2013 9:47 PM CDT documented in this encounter Plan of Treatment Not on file documented as of this encounter Procedures Procedure Name Priority Date/Time Associated Diagnosis Comments TNI WITH LIPID PANEL Routine 08/03/2013 10:02 PM CDT CBC WITH AUTO DIFFERENTIAL Routine 08/03/2013 10:02 PM CDT APTT Routine 08/03/2013 10:02 PM CDT PROTIME-INR Routine 08/03/2013 10:02 PM CDT COMPREHENSIVE METABOLIC PANEL Routine 08/03/2013 10:[address] HEAD WO CONTRAST Routine 08/03/2013 1 2:00 AM CDT XR SPINE CERVICAL COMPLETE 4 OR 5 VW Routine 08/03/2013 12:00 AM CDT XR CHEST PA LATERAL 2 VIEWS Routine 08/03/2013 12:00 AM CDT documented in this encounter Results * TNI with LIPID PANEL (08/03/2013 10:02 PM CDT) Troponin I < 0.300 0.000 - 0.300 ng/mL 08/03/2013 10:46 PM CDT [facility] HISTORICAL RESULTS Comment: Reference using TERI Chemiluminescence ? Negative: Repeat in 4-6 hours as indicated. Triglycerides 191 0 - 199 mg/dL 08/03/2013 10:49 PM CDT [facility] HISTORICAL RESULTS Comment:12 hr pc highly abdulaziz mmended for Triglyceride Cholesterol 160 0 - 199 mg/dL 08/03/2013 10:49 PM CDT [facility] HISTORICAL RESULTS Comment: Borderline: ??200-239 High Risk: ?? >239 HDL Cholesterol 44 40 - 60 mg/dL 08/03/2013 10:49 PM CDT [facility] HISTORICAL RESULTS Comment: Major Risk ?< 40 mg/dL Moderate Risk ?40-60 mg/dL Negative Risk ?? > 60 mg/dL LDL Cholesterol, Calc 78 0 - 130 mg/dL Comment:High Risk > 159 mg/d L 08/03/2013 10:0 2 PM CDT 08/03/2013 10:11 PM CDT Madalyn BARBER LAB BLOOD ORDERABLES Final Re sult Performing Organization Address [facility] de Phone Number [facility] HISTORICAL RESULTS * Protime-INR (08/03/2013 10:02 PM CDT) PT 12.9 12.2 - 14.8 SECONDS INR 0.94 0.01 - 5.99 Comment: Recommended Therapeutic range for Oral Anticoagulant Therapy No anti-coagulation therapy ? Normal Range: ?0.8-1.4 Anti-coagulation therapy ? Low intensity therapy ?2.0-3.0 ? High intensity therapy ?? 2.5-3.5 Critical Value ? Greater than or equal to 6.0 Patients should be monitored for serious bleeding. ?? 08/03/2013 10:0 2 PM CDT 08/03/2013 10:11 PM CDT Madalyn BARBER LAB BLOOD ORDERABLES Final Re sult Performing Organization Address [facility] de Phone Number [facility] HISTORICAL RESULTS * aPTT (08/03/2013 10:02 PM CDT) APTT 29 24 - 38 SECONDS 08/03/2013 10:0 2 PM CDT 08/03/2013 10:11 PM CDT Madalyn BARBER LAB BLOOD ORDERABLES Final Re sult Performing Organization Address [facility]/ZIP Co de Phone Number [facility] HISTORICAL RESULTS * Comprehensive metabolic panel (08/03/2013 10:02 PM CDT) [facility] Sodium 136 135 - 145 mmol/L Potassium 3.9 3.3 - 5.1 mmol/L Chloride 99 96 - 108 mmol/L Carbon Dioxide 27 22 - 32 mmol/L Anion Gap 10 7 - 16 Glucose 105 70 - 110 mg/dL BUN 14 6 - 20 mg/dL Creatinine 1.1 0.5 - 1.3 mg/dL Kidney Disease Stage 76 mL/MIN Comment: NOTE; ??The GFR is an estimated value using the creatinine, sex, age, and race of the patient. THE ESTIMATED GFR IS VALIDATED FOR AGES 18-70 YEARS STAGE ?mL/Min ?DESCRIPTION ??1 ?90 mL/min or more ?Normal or elevated GFR ??2 ? 60-89 mL/min ?Mildly decreased GFR ??3 ? 30-59 mL/min ?Moderately decreased GFR ??4 ? 15-29 mL/min ?Severely decreased GFR ??5 ? <15 mL/min ? Kidney failure or on dialysis @ Calcium 9.9 8.6 - 10.2 mg/dL Total Protein 7.1 6.6 - 8.7 g/dL Albumin 4.4 3.5 - 5.2 g/dL Globulin 2.7 2.3 - 3.5 gm/dL Albumin/Globulin Ratio 1.6 1.1 - 1.8 Total Bilirubin 0.5 0.0 - 1.2 mg/dL AST 32 0 - 40 U/L ALT 23 0 - 41 U/L Alkaline Phosphatase 65 40 - 129 U/L 08/03/2013 10:0 2 PM CDT 08/03/2013 10:11 PM CDT us Madalyn BARBER LAB BLOOD ORDERABLES Final Re sult [facility] HISTORICAL RESULTS * (ABNORMAL) CBC with auto differential (08/03/2013 10:02 PM CDT) WBC 5.6 4.6 - 10.2 x10 3/ul RBC 4.33 4.11 - 5.71 x10 6/ul Hemoglobin 13.7 13.0 - 17.0 g/dl Hct 38.9 38.2 - 48.5 % MCV 89.8 80.0 - 97.0 fl MCH 31.6(H) 27.0 - 31.2 pg MCHC 35.2 31.8 - 35.4 g/dl RDW 11.9 11.6 - 14.8 % Plt Count 180 124 - 400 x10 3/ul MPV 9.4 7.4 - 10.4 fl Differential Method AUTOMATED DIFF --------- -- Neut % 43.4 37.0 - 85.0 % Immature Gran % 0.2 0.0 - 3.0 % Lymph % 44.1 5.0 - 45.0 % [place] % 8.7 3.0 - 15.0 % Eos % 2.7 0.0 - 7.0 % Baso % 0.9 0.0 - 2.0 % ABSOLUTE COUNTS ABSOLUTE COUNTS --------- -- Absolute Neuts (auto) 2.5 1.7 - 8.7 x10 3/ul Immature Gran # 0.0 0.0 - 0.3 x10 3/ul Absolute Lymphs (auto) 2.5 0.2 - 4.6 x10 3/ul Absolute Monos (auto) 0.5 0.1 - 1.5 x10 3/ul Absolute Eos (auto) 0.2 0.0 - 0.7 x10 3/ul Absolute Basos (auto) 0.1 0.0 - 0.2 x10 3/ul 08/03/2013 10:0 2 PM CDT 08/03/2013 10:11 PM CDT us Madalyn Sherman PA LAB BLOOD ORDERABLES Final Re sult [facility] HISTORICAL RESULTS * XR Spine Cervical Complete 4 or 5 Views (08/03/2013 12:00 AM CDT) Anatomical Region Laterality Modality Spine N/A Radiographic [place] ging 08/03/2013 Impressions 08/03/2013 11:52 PM CDT ??No acute bony abnormality. THIS IS AN ELECTRONICALLY VERIFIED REPORT 08/03/2013 11:49 PM: ??Adonis Madrigal M.D. Adonis Madrigal M.D. MA:alannah 11:49 PM 11:49 PM APO [EOD] Narrative 08/03/2013 11:52 PM CDT EXAMINATION: ??Cervical spine 5 views HISTORY: ??Right arm numbness and tingling. COMPARISON: ??None. FINDINGS: ??No acute fracture or prevertebral soft tissue swelling. ??Vertebral bodies are normal in height and alignment. ??No significant disc height narrowing. ??There is no evidence of ligamentous instability with flexion. ??The odontoid process and lateral masses of C1 are normal on the odontoid view. Procedure Note Provider, MD Mook - 07/25/2020 EXAMINATION: Cervical spine 5 views HISTORY: Right arm numbness and tingling. COMPARISON: None. FINDINGS: No acute fracture or prevertebral soft tissue swelling.Vertebral bodies are normal in height and alignment. No significant disc height narrowing. There is no evidence of ligamentous instability with flexion.The odontoid process and lateral masses of C1 are normal on the odontoidview. IMPRESSION: No acute bony abnormality. THIS IS AN ELECTRONICALLY VERIFIED REPORT 08/03/2013 11:49 PM: Adonis Madrigal M.D. Adonis Madrigal M.D. MA:alannah 11:49 PM 11:49 PM APO [EOD] us Destiney Durbin HOME CARE AIDE IMG XR PROCEDURES Final Resu lt * XR Chest Pa Lateral 2 Views (08/03/2013 12:00 AM CDT) Anatomical Region Laterality Modality Body, Chest N/A Radiographic [place] ging 08/03/2013 Impressions 08/03/2013 10:33 PM CDT No active cardiopulmonary disease. THIS IS AN ELECTRONICALLY VERIFIED REPORT 08/03/2013 10:30 PM: ??Jeffrey Santa M.D. Jeffrey Santa M.D. RW:herlinda 10:30 PM 10:30 PM JACQUIE [EOD] Narrative 08/03/2013 10:33 PM CDT EXAMINATION: ??CHEST X-RAY 2 VIEWS HISTORY: ??Chest pain TECHNIQUE: ??Frontal and lateral projections of the chest. COMPARISON: ??10/09/2006 FINDINGS: The heart is normal size. The lungs are clear of acute infiltrate. There is no pleural effusion. ??There is no pneumothorax. ?? Procedure Note Provider, MD Mook - 07/25/2020 EXAMINATION: CHEST X-RAY 2 VIEWS HISTORY: Chest pain TECHNIQUE: Frontal and lateral projections of the chest. COMPARISON: 10/09/2006 FINDINGS: The heart is normal size. The lungs are clear of acute infiltrate. There is no pleural effusion. There is no pneumothorax. IMPRESSION: No active cardiopulmonary disease. THIS IS AN ELECTRONICALLY VERIFIED REPORT 08/03/2013 10:30 PM: Jeffrey Santa M.D. Jeffrey Santa M.D. RW:herlinda 10:30 PM 10:30 PM JACQUIE [EOD] Madalyn Sherman PA IMG XR PROCEDURES Final Resul t * CT Head WO Contrast (08/03/2013 12:00 AM CDT) Anatomical Region Laterality Modality Head and Neck N/A Computed Tomogra phy 08/03/2013 Impressions 08/03/2013 11:54 PM CDT ??No acute intracranial abnormality. THIS IS AN ELECTRONICALLY VERIFIED REPORT 08/03/2013 11:51 PM: ??Adonis Madrigal M.D. Adonis Madrigal M.D. MA:alannah 11:51 PM 11:51 PM APO [EOD] Narrative 08/03/2013 11:54 PM CDT EXAMINATION: ??CT brain without contrast HISTORY: ??Left arm is heavy with tingling. ??Dizziness. COMPARISON: ??CT brain August 03, 2012 TECHNIQUE: ??Axial CT images through the brain were obtained without IV contrast. FINDINGS: ??There is no intracranial mass, mass effect, hemorrhage, or abnormal extra-axial fluid collection. ??The ventricles and subarachnoid spaces are not enlarged. ??No CT evidence of acute infarction. The visualized orbital structures are normal. ??The paranasal sinuses are clear. ??The anterior clinoid processes are pneumatized. ??No fluid in the middle ear cavities or the mastoid air cells. ??No calvarial fracture. Procedure Note Provider, MD Mook - 07/25/2020 EXAMINATION: CT brain without contrast HISTORY: Left arm is heavy with tingling. Dizziness. COMPARISON: CT brain August 03, 2012 TECHNIQUE: Axial CT images through the brain were obtained without IV contrast. FINDINGS: There is no intracranial mass, mass effect, hemorrhage, orabnormal extra-axial fluid collection. The ventricles and subarachnoid spaces arenot enlarged. No CT evidence of acute infarction. The visualized orbital structures are normal. The paranasal sinuses are clear. The anteriorclinoid processes are pneumatized. No fluid in the middle ear cavities or themastoid air cells. No calvarial fracture. IMPRESSION: No acute intracranial abnormality. THIS IS AN ELECTRONICALLY VERIFIED REPORT 08/03/2013 11:51 PM: Adonis Madrigal M.D. Adonis Madrigal M.D. MA:alannah 11:51 PM 11:51 PM APO [EOD] us Destiney Durbin HOME CARE AIDE IMG CT PROCEDURES Final Resu lt documented in this encounter Visit Diagnoses Diagnosis Chest pain Unspecified chest pain Disturbance of skin sensation Dizziness and giddiness Headache Encounter for long-term (current) use of other medications documented in this encounter
--- OUTSIDE RECORDS SUMMARY | 2024-02-23 15:07 | XMS_ITS | Encounter Summary ---
Author Organization 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 Gender Identity Not on file Sexual Orientation Not on file documented as of this encounter Plan of Treatment Not on file documented as of this encounter Procedures Procedure Name Priority Date/Time Associated Diagnosis Comments CREATININE WITH GFR Routine 06/19/2015 9 :31 AM CDT IRON PROFILE W/ IBC Routine 06/19/2015 9 :31 AM CDT BUN Routine 06/19/2015 9:31 AM CDT FERRITIN Routine 06/19/2015 9:31 AM CDT documented in this encounter Results * Ferritin (06/19/2015 9:31 AM CDT) Ferritin 79.4 30.0 - 400.0 ng/mL 06/19/2015 9:31 AM CDT 06/19/2015 9:33 AM CDT us Cecy BARBER LAB BLOOD ORDERABLES Fin al Result Performing Organization Address [facility] Co de Phone Number [facility] HISTORICAL RESULTS * (ABNORMAL) Iron profile w/ IBC (06/19/2015 9:31 AM CDT) Iron 51(L) 59 - 158 ug/dL Comment:Fasting specimen pre ferred TIBC 281 228 - 428 ug/dL Transferrin % Sat 18(L) 20 - 50 % 06/19/2015 9:31 AM CDT 06/19/2015 9:33 AM CDT us Cecy BARBER LAB BLOOD ORDERABLES Fin al Result Performing Organization Address [facility] Co de Phone Number [facility] HISTORICAL RESULTS * BUN (06/19/2015 9:31 AM CDT) BUN 18 6 - 20 mg/dL 06/19/2015 9:31 AM CDT 06/19/2015 9:33 AM CDT us Cecy BARBER LAB BLOOD ORDERABLES Fin al Result [facility] HISTORICAL RESULTS * Creatinine with GFR (06/19/2015 9:31 AM CDT) Creatinine 1.0 0.5 - 1.3 mg/dL Comment: [...] ? Kidney failure or on dialysis @ 06/19/2015 9:31 AM CDT 06/19/2015 9:33 AM CDT us Cecy BARBER LAB URINE ORDERABLES Fin al Result [facility] HISTORICAL RESULTS documented in this encounter Visit Diagnoses Diagnosis Periodic limb movement disorder documented in this encounter
--- OUTSIDE RECORDS SUMMARY | 2024-02-23 15:07 | XMS_ITS | Encounter Summary ---
Author Organization [facility] Healthcare Address [address] [place] [address] Care Team Providers Care Director Visual Name Role Phone Unavailable Primary Care Provider Unavailabl e Encounter Details Date Type Department Care Team (Late st Contact Info) Description 01/17/2014 8:30 AM FLIGHT INSPECTOR - 12/06/2014 8:30 AM CDT Hospital Encounter [facility] OP Trevor Maldonado MD [address] [facility] [address] [address] Social History Tobacco Use Types Packs/Day Years Used Date Smoking Tobacco: Never Assessed Sex and Gender Information Value Date Recorded Sex Assigned at Not on file Legal Sex Male 8:16 AM FLIGHT INSPECTOR Gender Identity Not on file Sexual Orientation Not on file documented as of this encounter Last Filed Vital Signs Vital Sign Reading Time Taken Comments Blood Pressure - - Pulse - - Temperature - - Respiratory Rate - - Oxygen Saturation - - Inhaled Oxygen Concentration - - Weight 99.8 kg (220 lb) 12/06/2013 9:13 AM CDT Height 203.2 cm (6' 8 ) 12/06/2013 9:13 AM CDT Body Mass Index 24.17 12/06/2013 9:13 AM CDT documented in this encounter Plan of Treatment Not on file documented as of this encounter Visit Diagnoses Not on filedocumented in this encounter
--- OUTSIDE RECORDS SUMMARY | 2024-02-23 15:07 | XMS_ITS | Encounter Summary ---
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 ??No abnormal enhancement or acute hemorrhage/stroke. THIS IS AN ELECTRONICALLY VERIFIED REPORT 08/04/2012 8:05 AM: ??Jon Brand M.D. Jon Brand M.D. JA:carolyn 03:20 PM 03:37 PM [EOD] Narrative 08/04/2012 8:12 AM CDT PROCEDURE: CT SCAN OF THE HEAD WITH AND WITHOUT CONTRAST TECHNIQUE: Axial 3 mm sections were obtained from vertex to skull base with and without intravenous contrast. 50 mL of Omnipaque-350 was administered uneventfully via the right antecubital vein. INDICATION: ??Headache COMPARISON: ??None available FINDINGS: ??The ventricular system, cortical sulcal pattern and basilar cisterns are normal in size and configuration. There is no acute intraparenchymal, subarachnoid or extra-axial hemorrhage. ?? Posterior fossa is unremarkable. After administration of intravenous contrast, no focus of abnormal enhancement is seen within the brain parenchyma. ??There is no abnormal meningeal enhancement. Orbits are intact. ??Sinuses are clear. ??Calvarium is unremarkable. Procedure Note Provider, MD Mook - 07/25/2020 PROCEDURE: CT SCAN OF THE HEAD WITH AND WITHOUT CONTRAST TECHNIQUE: Axial 3 mm sections were obtained from vertex to skull basewith and without intravenous contrast. 50 mL of Omnipaque-350 was administered uneventfully via the right antecubital vein. INDICATION: Headache COMPARISON: None available FINDINGS: The ventricular system, cortical sulcal pattern and basilar cisterns are normal in size and configuration. There is no acute intraparenchymal, subarachnoid or extra-axialhemorrhage. Posterior fossa is unremarkable. After administration of intravenous contrast, no focus of abnormalenhancement is seen within the brain parenchyma. There is no abnormal meningeal enhancement. Orbits are intact. Sinuses are clear. Calvarium is unremarkable. IMPRESSION: Normal CT head with and without contrast. No abnormal enhancement or acute hemorrhage/stroke. THIS IS AN ELECTRONICALLY VERIFIED REPORT 08/04/2012 8:05 AM: Jon Brand M.D. Jon Brand M.D. JA:carolyn 03:20 PM 03:37 PM [EOD] Herman Raymundo MD IMG CT PROCEDURES Final Res ult documented in this encounter Visit Diagnoses Diagnosis Headache documented in this encounter
--- OUTSIDE RECORDS SUMMARY | 2024-02-23 15:07 | XMS_ITS | Encounter Summary ---
Author Organization [facility] Healthcare Address [address] [place] [address] Care Team Providers Care Ceo & Board Director Name Role Phone Unavailable Primary Care Provider Unavailabl e Encounter Details Date Type Department Care Team (Late st Contact Info) Description 11/06/2015 3:52 PM CDT Hospital Encounter [facility] OP Héctor Barreto MD [address] [place] [address] Low back pain; Other intervertebral disc degeneration, lumbar region Social History Tobacco Use Types Packs/Day Years Used Date Smoking Tobacco: Never Assessed Sex and Gender Information Value Date Recorded Sex Assigned at Not on file 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 1.Degenerative disc and joint disease detailed above is progressed since 2008. 2.At L4-5 there is moderate left subarticular stenosis. ??Correlate for left L5 radiculopathy. 3.At L5-S1 there is a small left paracentral caudal migrating disc extrusion possibly impinging on the left S1 nerve roots. ??Correlate. THIS IS AN ELECTRONICALLY VERIFIED REPORT 11/06/2015 10:39 PM: ??Edgar Waller M.D. ?? Edgar Waller M.D. DS:lw 05:14 PM 05:55 PM BM [EOD] Narrative 11/06/2015 10:56 PM CDT EXAMINATION: ??Lumbar spine MRI without contrast HISTORY: ??Low back pain radiating into the groin and both of the legs since Thursday. TECHNIQUE: ??Sagittal T2, T1, STIR, and axial T1 and T2-weighted images and spine were performed without contrast. COMPARISON: ??Lumbar MR 07/20/2008. FINDINGS: ??5 lumbar type vertebral bodies are assumed for the purposes of this dictation. ??There is normal lumbar lordosis. ??No abnormalities of alignment are identified. ??The vertebral body heights are maintained. ??Marrow signal is notable for endplate degenerative marrow changes. The distal cord and conus medullaris have a normal caliber and morphology. ?? The conus terminates at the L1 level. ??No abnormal cord signal is noted. ?? Multiple peripelvic renal cysts. Multilevel degenerative change identified with diffuse disc degenerative desiccation and narrowing most prominent at the L4-5 and L5-S1 levels Findings on a level by level basis: T12-L1: Normal. L1-2: Normal. L2-3: Mild disc desiccation with disc bulging results in mild foraminal stenosis. ??Minimal spinal stenosis. L3-4: Mild disc bulging without stenosis. L4-5: Broad-based central disc protrusion with an annulus fissure and mild facet arthropathy causes mild spinal and moderate left subarticular stenosis. ?? Minimal right and mild left foraminal stenosis. ??Correlate for left L5 radiculopathy. L5-S1: Left paracentral small caudal migrating disc extrusion impinges on the left S1 nerve root sleeve on series 501 image 36 of 41. ??Correlate for left S1 radiculopathy. ??Moderate left subarticular stenosis. ??Mild spinal and no foraminal stenosis. Procedure Note Provider, MD Mook - 07/25/2020 EXAMINATION: Lumbar spine MRI without contrast HISTORY: Low back pain radiating into the groin and both of the legssince Thursday. TECHNIQUE: Sagittal T2, T1, STIR, and axial T1 and T2-weighted images and spine were performed without contrast. COMPARISON: Lumbar MR 07/20/2008. FINDINGS: 5 lumbar type vertebral bodies are assumed for the purposes ofthis dictation. There is normal lumbar lordosis. No abnormalities ofalignment are identified. The vertebral body heights are maintained. Marrow signalis notable for endplate degenerative marrow changes. The distal cord and conus medullaris have a normal caliber and morphology. The conus terminates at the L1 level. No abnormal cord signal is noted. Multiple peripelvic renal cysts. Multilevel degenerative change identified with diffuse disc degenerative desiccation and narrowing most prominent at the L4-5 and L5-S1 levels Findings on a level by level basis: T12-L1: Normal. L1-2: Normal. L2-3: Mild disc desiccation with disc bulging results in mild foraminal stenosis. Minimal spinal stenosis. L3-4: Mild disc bulging without stenosis. L4-5: Broad-based central disc protrusion with an annulus fissure and mild facet arthropathy causes mild spinal and moderate left subarticularstenosis. Minimal right and mild left foraminal stenosis. Correlate for left L5 radiculopathy. L5-S1: Left paracentral small caudal migrating disc extrusion impinges onthe left S1 nerve root sleeve on series 501 image 36 of 41. Correlate forleft S1 radiculopathy. Moderate left subarticular stenosis. Mild spinal and no foraminal stenosis. IMPRESSION: 1.Degenerative disc and joint disease detailed above is progressed [id number]. 2.At L4-5 there is moderate left subarticular stenosis. Correlate forleft L5 radiculopathy. 3.At L5-S1 there is a small left paracentral caudal migrating discextrusion possibly impinging on the left S1 nerve roots. Correlate. THIS IS AN ELECTRONICALLY VERIFIED REPORT 11/06/2015 10:39 PM: Edgar Waller M.D. Edgar Waller M.D. DS:lw 05:14 PM 05:55 PM [facility] [EOD] Héctor Barreto MD IMG MRI PROCEDURES Fin al Result documented in this encounter Visit Diagnoses Diagnosis Low back pain Lumbago Other intervertebral disc degeneration, lumbar region documented in this encounter
--- OUTSIDE RECORDS SUMMARY | 2024-02-23 15:07 | XMS_ITS | Encounter Summary ---
Author Organization [facility] Healthcare Address [address] [place] [address] Care Team Providers Care Audiology Technician Name Role Phone Unavailable Primary Care Provider Unavailabl e Encounter Details Date Type Department Care Team (Late st Contact Info) Description 12/13/2012 7:45 AM CDT - 06/24/2013 7:45 AM CDT Hospital Encounter [facility] OP Trevor Maldonado MD [address] [facility] [address] [address] Social History Tobacco Use Types Packs/Day Years Used Date Smoking Tobacco: Never Assessed Sex and Gender Information Value Date Recorded Sex Assigned at Not on file 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
--- OUTSIDE RECORDS SUMMARY | 2024-02-23 15:07 | XMS_ITS | Encounter Summary ---
Author Organization [facility] Healthcare Address [address] [place] [address] Care Team Providers Care Supervisor Cytology Name Role Phone Unavailable Primary Care Provider Unavailabl e Encounter Details Date Type Department Care Team (Latest Contact Info) Description 08/08/2012 8:09 PM CDT Hospital Encounter [facility] OP Trevor Maldonado MD [address] [facility] [address] [address] Other dyspnea and respiratory abnormality; Periodic limb movement disorder Social History Tobacco Use Types Packs/Day Years Used Date Smoking Tobacco: Never Assessed Sex and Gender Information Value Date Recorded Sex Assigned at Not on file 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 us Historical Provider Final Res ult documented in this encounter Visit Diagnoses Diagnosis Other dyspnea and respiratory abnormality Periodic limb movement disorder documented in this encounter
--- OUTSIDE RECORDS SUMMARY | 2024-02-23 15:07 | XMS_ITS | Encounter Summary ---
Author Organization [facility] Healthcare Address [address] [place] [address] Care Team Providers Care Superintendent Communications Name Role Phone Unavailable Primary Care Provider Unavailabl e Encounter Details Date Type Department Care Team (Latest Contact Info) Description 12/06/2013 9:20 AM CDT Hospital Encounter [facility] OP Delores Aguayo, FINANCE MANAGER [address] [place] [address] Periodic limb movement disorder Social History Tobacco Use Types Packs/Day Years Used Date Smoking Tobacco: Never Assessed Sex and Gender Information Value Date Recorded Sex Assigned at Not on file 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 Gender Identity Not on file Sexual Orientation Not on file documented as of this encounter Plan of Treatment Not on file documented as of this encounter Procedures Procedure Name Priority Date/Time Associated Diagnosis Comments CREATININE WITH GFR Routine 12/06/2013 9 :29 AM CDT IRON PROFILE W/ IBC Routine 12/06/2013 9 :29 AM CDT BUN Routine 12/06/2013 9:29 AM CDT FERRITIN Routine 12/06/2013 9:29 AM CDT documented in this encounter Results * Ferritin (12/06/2013 9:29 AM CDT) Ferritin 122.7 30.0 - 400.0 ng/mL 12/06/2013 9:29 AM CDT 12/06/2013 10:35 AM CDT Delores Aguayo FINANCE MANAGER LAB BLOOD ORDERABLES Final Re sult Performing Organization Address [facility] Co de Phone Number [facility] HISTORICAL RESULTS * (ABNORMAL) Iron profile w/ IBC (12/06/2013 9:29 AM CDT) Iron 51(L) 59 - 158 ug/dL Comment:Fasting specimen pre ferred TIBC 270 228 - 428 ug/dL Transferrin % Sat 19(L) 20 - 50 % 12/06/2013 9:29 AM CDT 12/06/2013 10:35 AM CDT Delores Aguayo FINANCE MANAGER LAB BLOOD ORDERABLES Final Re sult Performing Organization Address [facility] Co de Phone Number [facility] HISTORICAL RESULTS * BUN (12/06/2013 9:29 AM CDT) BUN 17 6 - 20 mg/dL 12/06/2013 9:29 AM CDT 12/06/2013 10:35 AM CDT Delores Aguayo FINANCE MANAGER LAB BLOOD ORDERABLES Final Re sult Performing Organization Address [facility] Co de Phone Number [facility] HISTORICAL RESULTS * Creatinine with GFR (12/06/2013 9:29 AM CDT) Creatinine 1.1 0.5 - 1.3 mg/dL Kidney [...] ? Kidney failure or on dialysis @ 12/06/2013 9:29 AM CDT 12/06/2013 10:35 AM CDT us Delores Aguayo FINANCE MANAGER LAB URINE ORDERABLES Final Re sult [facility] HISTORICAL RESULTS documented in this encounter Visit Diagnoses Diagnosis Periodic limb movement disorder documented in this encounter
--- OUTSIDE RECORDS SUMMARY | 2024-02-23 15:07 | XMS_ITS | Encounter Summary ---
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 Historical Provider Final Res ult documented in this encounter Visit Diagnoses Not on filedocumented in this encounter Care Teams Soil Chemist Relationship Specialty Start Date End Date Edgar Mckeon MD PCP - General 05/04/17 documented as of this encounter
== END 2024-02-20 03:41 | disposition home or self-care (01) ==
PROVIDERS: Emergency Medicine; Emergency Provider Student in an Organized Health Care Education/Training Program; PCP Family Medicine
DX: R07.89 Other chest pain (principal); I49.1 Atrial premature depolarization; R94.31 Abnormal electrocardiogram [ECG] [EKG]
CPT/HCPCS: 36415; 71046; 71275; 80053; 83690; 84484; 85025; 85380; 85610; 85730; 93005; 96374; 96375; 99284; J1885; Q9967